=== PATIENT | female | born 1990 | race Two or more races ===

== ENCOUNTER 2017-09-30 10:37 | Emergency (ER) | payer MEDICAID, MEDICARE, OTHER ==
[2017-09-30 11:52] LABS: ABS Basophils 0.1 10^3/ul (0-0.2); ABS Eosinophils 0.1 10^3/ul (0-0.6); ABS Lymphocytes 2.3 10^3/ul (1.0-4.8); ABS Monocytes 0.6 10^3/ul (0-0.8); ABS Nucleated RBC 0 10^3/ul; Eosinophil % 1.3 % (0-6); Hematocrit 38 % (35-47); Hemoglobin 12.4 g/dl (12.0-16.0); Lymphocyte % 28.2 % (25-47); Mean Corpuscular HGB Conc 32 g/dl (31-36); Mean Corpuscular Hemoglobin 23 pg (27-31); Mean Corpuscular Volume 71 fL (80-97); Mean Platelet Volume 8.7 um3 (7.4-10.4); Nucleated Red Blood Cells % 0; Platelet Count 328 10^3/ul (150-450); Red Blood Count 5.44 10^6/ul (4.00-5.40); Red Cell Distribution Width 17 % (10.5-15); White Blood Count 8.1 10^3/ul (3.5-10.8)
[2017-09-30 12:10] LABS: EGFR Non-African American 116.4 (>60)
[2017-09-30] MEDS ORDERED: Ondansetron ODT TAB* 4 MG PO ONE (12:42)
--- NOTE | 2017-09-30 12:45 | ED ---
HPI Febrile Illness - HPI Summary HPI Summary: Pt is a 26 y/o F c/o Flu-like symptoms onset 3 days ago. Assoc. Sx: Abd pain, lightheaded, fever, chills, nausea/vomiting (20x). Denies: cough. - History of Current Complaint Chief Complaint: EDFluSymptoms Hx Obtained From: Patient Onset/Duration: Started Days Ago - 3 days Timing: Constant Current Severity: None Pain Intensity: 0 Pain Scale Used: 0-10 Numeric Associated Signs and Symptoms: Negative - cough, Chills, Nausea, Vomiting, Other : - fever, lightheaded, fever, abd pain - Allergy/Home Medications Allergies/Adverse Reactions: Allergies Allergy/AdvReac Type Severity Reaction Status Date / Time No Known Allergies Allergy Verified 03/18/13 21:20 PMH/Surg Hx/FS Hx/Imm Hx Respiratory History: Reports: Hx Asthma - INHAILER DAILY Sensory History: Denies: Hx Legally Blind Infectious Disease History: No Infectious Disease History: Denies: Traveled Outside the [place] in Last 30 Days - Family History Known Family History: Positive: Cardiac Disease, Hypertension, Diabetes - Social History Occupation: Unemployed Lives: With Family Substance Use Type: Reports: None Review of Systems Positive: Fever, Chills, Other - nausea, vomiting. Negative: Cough Positive: Abdominal Pain Neurological: Other - lightheadedness All Other Systems Reviewed And Are Negative: Yes Physical Exam - Summary Physical Exam Summary: Constitutional: Well-developed, Well-nourished, Alert. (-) Distressed Skin: Warm, Dry HENT: Normocephalic; Atraumatic Eyes: Conjunctiva normal Neck: Musculoskeletal ROM normal neck. (-) JVD, (-) Stridor, (-) Tracheal deviation Cardio: Rhythm regular, rate normal, Heart sounds normal; Intact distal pulses; The pedal pulses are 2+ and symmetric. Radial pulses are 2+ and symmetric. (-) Murmur Pulmonary/Chest wall: Effort normal. (-) Respiratory distress, (-) Wheezes, (-) Rales Abd: Soft, (-), epigastric tenderness, (-) Distension, (-) Guarding, (-) Rebound Musculoskeletal: (-) Edema Lymph: (-) Cervical adenopathy Neuro: Alert, Oriented x3 Psych: Mood and affect Normal Triage Information Reviewed: Yes Vital Signs On Initial Exam: Initial Vitals Temp Pulse Resp BP Pulse Ox 98 F 72 16 135/77 99 09/30/17 10:39 09/30/17 10:39 09/30/17 10:39 09/30/17 10:39 09/30/17 10:39 Vital Signs Reviewed: Yes Diagnostics - Vital Signs Vital Signs Temp Pulse Resp BP Pulse Ox 09/30/17 10:39 98 F 72 16 135/77 99 - Laboratory Lab Results: Lab Results 09/30/17 09/30/17 09/30/17 Range/Units 11:12 11:12 11:12 WBC 8.1 (3.5-10.8) 10^3/ul RBC 5.44 H (4.00-5.40) 10^6/ul Hgb 12.4 (12.0-16.0) g/dl Hct 38 (35-47) % MCV 71 L (80-97) fL MCH 23 L (27-31) pg MCHC 32 (31-36) g/dl RDW 17 H (10.5-15) % Plt Count 328 (150-450) 10^3/ul MPV 8.7 (7.4-10.4) um3 Neut % (Auto) 62.5 (38-83) % Lymph % (Auto) 28.2 (25-47) % [place] % (Auto) 7.3 H (0-7) % Eos % (Auto) 1.3 (0-6) % Baso % (Auto) 0.7 (0-2) % Absolute Neuts (auto) 5.0 (1.5-7.7) 10^3/ul Absolute Lymphs (auto) 2.3 (1.0-4.8) 10^3/ul Absolute Monos (auto) 0.6 (0-0.8) 10^3/ul Absolute Eos (auto) 0.1 (0-0.6) 10^3/ul Absolute Basos (auto) 0.1 (0-0.2) 10^3/ul Absolute Nucleated RBC 0 10^3/ul Nucleated RBC % 0 Microcytosis 1+ Sodium 137 (135-145) mmol/L Potassium 3.6 (3.5-5.0) mmol/L Chloride 104 (101-111) mmol/L Carbon Dioxide 26 (22-32) mmol/L Anion Gap 7 (2-11) mmol/L BUN 12 (6-24) mg/dL Creatinine 0.62 (0.51-0.95) mg/dL Est GFR ( Amer) 140.8 (>60) Est GFR (Non-Af Amer) 116.4 (>60) BUN/Creatinine Ratio 19.4 (8-20) Glucose 100 (70-100) mg/dL Lactic Acid 0.8 (0.5-2.0) mmol/L Calcium 9.4 (8.6-10.3) mg/dL Total Bilirubin 0.40 (0.2-1.0) mg/dL AST 20 (13-39) U/L ALT 15 (7-52) U/L Alkaline Phosphatase 72 (34-104) U/L C-Reactive Protein 21.39 H (<8.01) mg/L Total Protein 8.0 (6.4-8.9) g/dL Albumin 4.0 (3.2-5.2) g/dL Globulin 4.0 (2-4) g/dL Albumin/Globulin Ratio 1.0 (1-3) Lipase 16 (11.0-82.0) U/L Result Diagrams: 09/30/17 11:12 09/30/17 11:12 Lab Statement: Any lab studies that have been ordered have been reviewed, and results considered in the medical decision making process. Re-Evaluation - Re-Evaluation First Eval Re-Evaluation Time: 16:05 Change: Worse Comment: experiencing N/V/D Second Eval Re-Evaluation Time: 16:34 Change: Improved Course/Dx - Diagnoses Provider Diagnoses: UTI (urinary tract infection), Gastroenteritis Discharge - Sign-Out/Discharge Documenting (check all that apply): Patient Departure - Discharge Plan Condition: Stable Disposition: HOME Prescriptions: Ondansetron ODT TAB* [Zofran 4 MG Odt TAB*] 4 mg PO Q8H PRN #12 tab.odt PRN Reason: Nausea/Vomiting Sulfamethox/Trimethoprim DS* [Bactrim DS 800/160 TAB*] 1 tab PO BID #14 tab Patient Education Materials: Urinary Tract Infection in Women (ED), Gastroenteritis (ED) Referrals: No Primary Care Phys,NOPCP [Primary Care Provider] - [facility] [place] [facility]IAN REFERRAL [Outside] Additional Instructions: RETURN TO THE EMERGENCY DEPARTMENT FOR CHANGING OR WORSENING SYMPTOMS
[2017-09-30] MEDS: NS 0.9% 1000 ML* 2,000 ML IV ONE (14:56)
[2017-09-30 15:47] LABS: Urine Appearance Cloudy; Urine Blood 3+ (Negative); Urine Color Yellow; Urine Ketones Trace (Negative); Urine Protein 1+(30 mg/dL) (Negative); Urine Red Blood Cell 3+(>10/hpf) (Absent); Urine Specific Gravity 1.023 (1.010-1.030); Urine Urobilinogen Negative (Negative); Urine White Blood Cell 3+(>20/hpf) (Absent)
[2017-09-30] MEDS ORDERED: Sulfamethox/Trimethoprim DS 800/160* TAB PO ONE (16:02)
[2017-09-30 16:57] VITALS: BP 113/84
== END 2017-09-30 17:15 | disposition home or self-care (01) ==
LOC: ED 10:37
DX: N39.0 Urinary tract infection, site not specified (principal); K52.9 Noninfective gastroenteritis and colitis, unspecified
CPT/HCPCS: 36415; 80053; 81003; 81015; 83605; 83690; 84702; 85025; 86140; 87086; 96360; 96361; 99283; A9270-GY

== ENCOUNTER 2017-10-09 19:33 | Emergency (ER) | payer OTHER ==
[2017-10-09] MEDS ORDERED: NS 0.9% 1000 ML* 1,000 ML IV ONE (19:48)
[2017-10-09] MEDS ORDERED: Charcoal ACTIVATED* 25 GM/120 ML BTL PO ONE (19:50)
[2017-10-09] MEDS ORDERED: Pantoprazole IV* 40 MG IV ONE (19:50)
--- NOTE | 2017-10-09 20:07 | ED ---
Substance Abuse/Use - HPI Summary HPI Summary: This is lolis Ga documenting for attending Darlene West MD. This patient is a 26 year old F presenting to ED with a chief complaint of possible overdose on medications since 0.5 hours ago. The patient reports she took ibuprofen (200mg, took a whole bottle x60 pills about a 0.5 hour ago) and a whole bottle of her anxiety medication (hydroxyzine) but doesnt know if the pills were 25mg or 50mg and she doesnt know how much she took. Her friend called her a cab to take her to the ED. The patient rates the pain 0/10 in severity. Symptoms aggravated by nothing. Symptoms alleviated by nothing. Patient denies N/V. She also currently is on Latuda for depression. She doesnt have a psychiatrist and doesnt remember the name of the person who prescribed her the medications. - History Of Current Complaint Chief Complaint: EDOverdose Stated Complaint: POSSIBLE OVERDOSE Time Seen by Provider: 10/09/17 19:42 Hx Obtained From: Patient Onset/Duration of Drug/ETOH Abuse: Minutes - 0.5 hours ago Ingestion History: Type/Name Of Drug - Ibuprofen and hydroxyzine, Amount Ingested - ibuprofen (200mg, took a whole bottle x60 pills); doesn't know how much of the hydroxyzine, Approximate Time Of Ingestion - 0.5 hours ago Overdose Characteristics: Oral Timing Of Abuse: Binge Use Severity Currently: None Aggravating Factor(s): Nothing Alleviating Factor(s): Nothing Associated Signs And Symptoms: Other: - Patient denies N/V. - Allergies/Home Medications Allergies/Adverse Reactions: Allergies Allergy/AdvReac Type Severity Reaction Status Date / Time No Known Allergies Allergy Verified 03/18/13 21:20 Home Medications: Home Medications Hydroxyzine HCl 25 mg PO Q4HR PRN 10/10/17 [History Confirmed 10/10/17] Latuda 120 mg PO DAILY 10/10/17 [History Confirmed 10/10/17] traZODone TAB* 50 mg PO BEDTIME 10/10/17 [History Confirmed 10/10/17] PMH/Surg Hx/FS Hx/Imm Hx Respiratory History: Reports: Hx Asthma - INHAILER DAILY Sensory History: Denies: Hx Legally Blind Opthamlomology History: Denies: Hx Legally Blind Psychiatric History: Reports: Hx Anxiety, Hx Depression Infectious Disease History: No Infectious Disease History: Denies: Traveled Outside the [place] in Last 30 Days - Family History Known Family History: Positive: Cardiac Disease, Hypertension, Diabetes - Social History Alcohol Use: Rare Substance Use Type: Reports: None Smoking Status (MU): Never Smoked Tobacco Review of Systems Negative: Vomiting, Nausea Psychological: Other - overdose on Ibuprofen and hydroxyzine All Other Systems Reviewed And Are Negative: Yes Physical Exam - Summary Physical Exam Summary: VITAL SIGNS: Reviewed. GENERAL: Patient is a well-developed and nourished FEMALE who is lying comfortable in the stretcher. Patient is not in any acute respiratory distress. HEAD AND FACE: No signs of trauma. No ecchymosis, hematomas or skull depressions. No sinus tenderness. EYES: PERRLA, EOMI x 2, No injected conjunctiva, no nystagmus. EARS: Hearing grossly intact. Ear canals and tympanic membranes are within normal limits. MOUTH: Oropharynx within normal limits. NECK: Supple, trachea is midline, no adenopathy, no JVD, no carotid bruit, no c- spine tenderness, neck with full ROM. CHEST: Symmetric, no tenderness at palpation LUNGS: Clear to auscultation bilaterally. No wheezing or crackles. CVS: Regular rate and rhythm, S1 and S2 present, no murmurs or gallops appreciated. ABDOMEN: Soft, non-tender. No signs of distention. No rebound no guarding, and no masses palpated. Bowel sounds are normal. EXTREMITIES: FROM in all major joints, no edema, no cyanosis or clubbing. NEURO: Alert and oriented x 3. No acute neurological deficits. Speech is normal and follows commands. SKIN: Dry and warm Patient took Ibuprofen and hydroxyzine 0.5 hours ago. Triage Information Reviewed: Yes Vital Signs On Initial Exam: Initial Vitals Temp Pulse Resp BP Pulse Ox 97.1 F 76 20 142/82 97 10/09/17 19:34 10/09/17 19:34 10/09/17 19:34 10/09/17 19:34 10/09/17 19:34 Vital Signs Reviewed: Yes Diagnostics - Vital Signs Vital Signs Temp Pulse Resp BP Pulse Ox 10/09/17 19:34 97.1 F 76 20 142/82 97 - Laboratory Result Diagrams: 10/09/17 20:28 08/02/18 20:28 Lab Statement: Any lab studies that have been ordered have been reviewed, and results considered in the medical decision making process. - EKG 2000 Cardiac Rate: NL - 86 BPM EKG Rhythm: Sinus Rhythm EKG Interpretation: Normal axis. Normal interval. No ischemic changes. Re-Evaluation - Re-Evaluation First Eval Re-Evaluation Time: 01:30 Change: Unchanged - Patient's vital signs remained stable. Patient remains asymptomatic from taking overdose of hydroxyzine and Motrin. no tachycardia, no fever, pupils are normal size. Patient cleared for psych eval by me. Patient transported to FLEX unit Course/Dx - Course Assessment/Plan: This patient is a 26 yo F who is here in the ED for overdose on Ibuprofen and hydroxyzine. This patient will be signed out to Dr. Yuan, awaiting MHE, re-eval, and dispo. - Diagnoses Differential Diagnosis/HQI/PQRI: Positive: Depression Provider Diagnoses: Depression Discharge - Sign-Out/Discharge Documenting (check all that apply): Sign-Out Patient Signing out patient TO: Haseeb Yuan - Discharge Plan Referrals: No Primary Care Phys,NOPCP [Primary Care Provider] -
[2017-10-09 20:39] LABS: Urine Appearance Cloudy; Urine Blood Negative (Negative); Urine Color Yellow; Urine Ketones 1+ (Negative); Urine Protein Negative (Negative); Urine Urobilinogen Negative (Negative)
[2017-10-09 20:40] LABS: ABS Basophils 0.1 10^3/ul (0-0.2); ABS Eosinophils 0.4 10^3/ul (0-0.6); ABS Lymphocytes 3.4 10^3/ul (1.0-4.8); ABS Monocytes 0.6 10^3/ul (0-0.8); ABS Neutrophils 3.2 10^3/ul (1.5-7.7); ABS Nucleated RBC 0 10^3/ul; Eosinophil % 5.2 % (0-6); Hematocrit 34 % (35-47); Hemoglobin 11.1 g/dl (12.0-16.0); Lymphocyte % 43.7 % (25-47); Mean Corpuscular HGB Conc 33 g/dl (31-36); Mean Corpuscular Hemoglobin 23 pg (27-31); Mean Corpuscular Volume 70 fL (80-97); Mean Platelet Volume 8.7 um3 (7.4-10.4); Nucleated Red Blood Cells % 0.1; Platelet Count 295 10^3/ul (150-450); Red Blood Count 4.83 10^6/ul (4.00-5.40); Red Cell Distribution Width 17 % (10.5-15); White Blood Count 7.7 10^3/ul (3.5-10.8)
[2017-10-09 20:57] LABS: EGFR Non-African American 125.7 (>60)
[2017-10-09] MEDS ORDERED: Potassium Chlor TAB* 20 MEQ TAB.ER PO ONE (21:47)
--- NOTE | 2017-10-10 07:11 | ED ---
Progress - Progress Note Progress Note: This is scribe Robbin Julio documenting for attending Haseeb Yuan MD. Re-Evaluation - Re-Evaluation First Eval Re-Evaluation Time: 01:30 Change: Unchanged - Patient's vital signs remained stable. Patient remains asymptomatic from taking overdose of hydroxyzine and Motrin. no tachycardia, no fever, pupils are normal size. Patient cleared for psych eval by me. Patient transported to FLEX unit Course/Dx - Diagnoses Provider Diagnoses: Depression - Provider Notifications Discussed Care Of Patient With: Daniel Richards Time Discussed With Above Provider: 10:42 Instructed by Provider To: Other - Dr. Richards was consulted on condition of patient at 10:42. He recommends patient for discharge to home. Patient states she will follow up with Dr. Perez within a week. Dr. Yuan is agreeable with the plan. Discharge - Sign-Out/Discharge Documenting (check all that apply): Patient Departure - Discharge Plan Condition: Stable Disposition: HOME Referrals: No Primary Care Phys,NOPCP [Primary Care Provider] - - Billing Disposition and Condition Condition: STABLE Disposition: Home
--- NOTE | 2017-10-10 07:32 | PN ---
ED Flex Patient Progress Note Date of Service: 10/09/17 Subjective: This is a 26 year-old F who is pending admission to [facility] / transfer to another psychiatric facility / discharge to home / or being observed secondary to SI with OD. Pt. examined in F3 at 0730. She is resting comfortably. She offers no complaints. Objective: Vitals: Most recent vital signs documented below. General NAD, Alert and oriented x3. Laboratory: Current laboratory results documented below. Assessment: Pending MHE Plan: Pending psychiatric or medical consultation to observe / transfer / admit / discharge will follow up daily . Vital Signs Temp Pulse Resp BP Pulse Ox 97.4 F 62 16 119/73 98 10/10/17 07:28 10/10/17 07:28 10/10/17 07:28 10/10/17 07:28 10/10/17 07:28 Lab Results - Entire Visit 10/09/17 10/09/17 10/09/17 20:28 20:28 20:28 WBC 7.7 RBC 4.83 Hgb 11.1 L Hct 34 L MCV 70 L MCH 23 L MCHC 33 RDW 17 H Plt Count 295 MPV 8.7 Neut % (Auto) 41.9 Lymph % (Auto) 43.7 [place] % (Auto) 8.3 H Eos % (Auto) 5.2 Baso % (Auto) 0.9 Absolute Neuts (auto) 3.2 Absolute Lymphs (auto) 3.4 Absolute Monos (auto) 0.6 Absolute Eos (auto) 0.4 Absolute Basos (auto) 0.1 Absolute Nucleated RBC 0 Nucleated RBC % 0.1 Sodium 138 Potassium 3.4 L Chloride 104 Carbon Dioxide 26 Anion Gap 8 BUN 8 Creatinine 0.58 Est GFR ( Amer) 152.1 Est GFR (Non-Af Amer) 125.7 BUN/Creatinine Ratio 13.8 Glucose 86 Calcium 9.3 Total Bilirubin 0.40 AST 21 ALT 18 Alkaline Phosphatase 67 Total Protein 7.2 Albumin 3.7 Globulin 3.5 Albumin/Globulin Ratio 1.1 TSH 1.82 Beta HCG, Quant < 0.60 Urine Color Urine Appearance Urine pH Ur Specific [place] Urine Protein Urine Ketones Urine Blood Urine Nitrate Urine Bilirubin Urine Urobilinogen Ur Leukocyte Esterase Urine Glucose Salicylates < 2.50 Urine Opiates Screen None detected Acetaminophen < 15 Ur Barbiturates Screen None detected Ur Phencyclidine Scrn None detected Ur Amphetamines Screen None detected U Benzodiazepines Scrn None detected Urine Cocaine Screen Presumptive positive A U Cannabinoids Screen Presumptive positive A Serum Alcohol < 10 10/09/17 20:27 WBC RBC Hgb Hct MCV MCH MCHC RDW Plt Count MPV Neut % (Auto) Lymph % (Auto) [place] % (Auto) Eos % (Auto) Baso % (Auto) Absolute Neuts (auto) Absolute Lymphs (auto) Absolute Monos (auto) Absolute Eos (auto) Absolute Basos (auto) Absolute Nucleated RBC Nucleated RBC % Sodium Potassium Chloride Carbon Dioxide Anion Gap BUN Creatinine Est GFR ( Amer) Est GFR (Non-Af Amer) BUN/Creatinine Ratio Glucose Calcium Total Bilirubin AST ALT Alkaline Phosphatase Total Protein Albumin Globulin Albumin/Globulin Ratio TSH Beta HCG, Quant Urine Color Yellow Urine Appearance Cloudy Urine pH 5.0 Ur Specific [place] 1.010 Urine Protein Negative Urine Ketones 1+ A Urine Blood Negative Urine Nitrate Negative Urine Bilirubin Negative Urine Urobilinogen Negative Ur Leukocyte Esterase Negative Urine Glucose Negative Salicylates Urine Opiates Screen Acetaminophen Ur Barbiturates Screen Ur Phencyclidine Scrn Ur Amphetamines Screen U Benzodiazepines Scrn Urine Cocaine Screen U Cannabinoids Screen Serum Alcohol
[2017-10-10 11:04] VITALS: BP 125/83
== END 2017-10-10 11:00 | disposition home or self-care (01) ==
LOC: ED 19:33
DX: F32.9 Major depressive disorder, single episode, unspecified (principal); T43.592A Poisoning by other antipsychotics and neuroleptics, intentional self-harm, initial encounter; T39.312A Poisoning by propionic acid derivatives, intentional self-harm, initial encounter; Y92.9 Unspecified place or not applicable; F41.9 Anxiety disorder, unspecified
CPT/HCPCS: 36415; 80053; 80307; 80320; 80329; 81003; 84443; 84702; 85025; 93005; 96361; 96374; 99285; A9270-GY; G0480

== ENCOUNTER → 2017-11-06 10:29 | Emergency (ER) | payer OTHER ==
--- NOTE | 2017-11-06 10:59 | ED ---
Abdominal Pain/Female - HPI Summary HPI Summary: This patient is a 26 year old F presenting to [facility] accompanied by her boyfriend with a chief complaint of 6/10 RLQ abd pain since this AM. Pt endorses being 6 or 7 weeks , and had an US that did not see an embryo ; she was told to come to the ED if she experiences pain to R/O ectopic . Pt denies discharge, LMP 09/25/17. SHx appendectomy 2 years ago. - History of Current Complaint Chief Complaint: EDAbdPain Stated Complaint: ABD PAIN/7 WKS PREG Time Seen by Provider: 11/06/17 10:35 Hx Obtained From: Patient Onset/Duration: Sudden Onset, Lasting Hours, Still Present Timing: Constant Severity Initially: Moderate Severity Currently: Moderate Pain Intensity: 6 Pain Scale Used: 0-10 Numeric Location: Discrete At: RLQ Radiates: No Aggravating Factor(s): Nothing Alleviating Factor(s): Nothing Associated Signs and Symptoms: Negative: Fever, Vaginal Bleeding, Vaginal Discharge Allergies/Adverse Reactions: Allergies Allergy/AdvReac Type Severity Reaction Status Date / Time No Known Allergies Allergy Verified 11/06/17 10:31 Home Medications: Home Medications NK [No Home Medications Reported] 11/06/17 [History Confirmed 11/06/17] PMH/Surg Hx/FS Hx/Imm Hx Cardiovascular History: Denies: Hx Myocardial Infarction Respiratory History: Reports: Hx Asthma - INHAILER DAILY GI History: Denies: Hx Ileostomy History: Denies: Hx Dialysis Musculoskeletal History: Denies: Hx Osteoporosis Sensory History: Denies: Hx Legally Blind, Hx Deafness Opthamlomology History: Denies: Hx Legally Blind EENT History: Denies: Hx Deafness Neurological History: Denies: Hx CVA Psychiatric History: Reports: Hx Anxiety, Hx Depression Denies: Hx Eating Disorder, Hx of Violent Episodes Against Others Infectious Disease History: No Infectious Disease History: Denies: Traveled Outside the [place] in Last 30 Days - Family History Known Family History: Positive: Cardiac Disease, Hypertension, Diabetes - Social History Lives: Dormitory/Roommates Alcohol Use: Rare Substance Use Type: Reports: None Smoking Status (MU): Never Smoked Tobacco Review of Systems Negative: Fever Positive: Abdominal Pain Positive: see HPI. Negative: discharge All Other Systems Reviewed And Are Negative: Yes Physical Exam - Summary Physical Exam Summary: Appearance: Well appearing, no pain distress Skin: warm, dry, reflects adequate perfusion Head/face: normal Eyes: EOMI, PAMELA ENT: normal Neck: supple, non-tender Respiratory: CTA, breath sounds present Cardiovascular: RRR, pulses symmetrical Abdomen: mild tenderness to RLQ, soft Bowel: present Musculoskeletal: normal, strength/ROM intact Neuro: normal, sensory motor intact, A&Ox3 Triage Information Reviewed: Yes Vital Signs On Initial Exam: Initial Vitals Temp Pulse Resp BP Pulse Ox 97.8 F 86 16 125/78 97 11/06/17 10:31 11/06/17 10:31 11/06/17 10:31 11/06/17 10:31 11/06/17 10:31 Vital Signs Reviewed: Yes Diagnostics - Vital Signs Vital Signs Temp Pulse Resp BP Pulse Ox 11/06/17 10:46 82 125/81 98 11/06/17 10:31 97.8 F 86 16 125/78 97 - Laboratory Result Diagrams: 11/06/17 10:52 11/06/17 10:52 Lab Statement: Any lab studies that have been ordered have been reviewed, and results considered in the medical decision making process. - Ultrasound No standard instances Ultrasound Interpretation: No Acute Changes Ultrasound Interpretation Completed By: Radiologist - NO EVIDENCE OF INTRAUTERINE GESTATION AND THEREFORE ECTOPIC IS NOT EXCLUDED. Dr. Cameron has reviewed this report. Abdominal Pain Fem Course/Dx - Course Course Of Treatment: A 26-year-old F presents to the ED with a CC of RLQ abd pain since this AM. (+) 6-7 weeks . (-) vaginal discharge/bleeding. A previous US revealed no embryo, here to R/O ectopic . LMP 09/25/17. A TVUS revealed NO EVIDENCE OF INTRAUTERINE GESTATION AND THEREFORE ECTOPIC IS NOT EXCLUDED. - Diagnoses Differential Diagnosis: Positive: Ectopic , Urinary Tract Infection Provider Diagnoses: Abdominal pain, - Provider Notifications Discussed Care Of Patient With: Erika Lambert Time Discussed With Above Provider: 13:59 Instructed by Provider To: Other - See her on Friday morning, call and make an appointment. Discharge - Sign-Out/Discharge Documenting (check all that apply): Patient Departure - discharge - Discharge Plan Condition: Stable Disposition: HOME Patient Education Materials: (ED), Abdominal Pain in (ED) Referrals: Erika Lambert MD [Medical Doctor] - 1 Day Additional Instructions: Return to the emergency department for any new or worsening symptoms. Call and make an appointment with Dr. Petra CONTRERAS for an appointment tomorrow. - Billing Disposition and Condition Condition: STABLE Disposition: Home - Attestation Statements Document Initiated by Zitaibe: Yes Documenting Scribe: Derrek Solomon Provider For Whom Faustoe is Documenting (Include Credential): Dr. Shivam Cameron MD Scribe Attestation: Derrek Bates scribed for Dr. Shivam Cameron MD on 11/06/17 at 1429. Scribe Documentation Reviewed: Yes Provider Attestation: The documentation as recorded by the Derrek danielle accurately reflects the service I personally performed and the decisions made by me, Dr. Shivam Cameron MD
[2017-11-06 11:14] LABS: ABS Basophils 0 10^3/ul (0-0.2); ABS Eosinophils 0.1 10^3/ul (0-0.6); ABS Lymphocytes 2.6 10^3/ul (1.0-4.8); ABS Monocytes 0.8 10^3/ul (0-0.8); ABS Neutrophils 5.3 10^3/ul (1.5-7.7); ABS Nucleated RBC 0 10^3/ul; Eosinophil % 1.3 % (0-6); Hematocrit 36 % (35-47); Hemoglobin 11.7 g/dl (12.0-16.0); Lymphocyte % 29.1 % (25-47); Mean Corpuscular HGB Conc 32 g/dl (31-36); Mean Corpuscular Hemoglobin 23 pg (27-31); Mean Corpuscular Volume 70 fL (80-97); Mean Platelet Volume 8.6 um3 (7.4-10.4); Nucleated Red Blood Cells % 0.1; Platelet Count 308 10^3/ul (150-450); Red Blood Count 5.19 10^6/ul (4.00-5.40); Red Cell Distribution Width 17 % (10.5-15); White Blood Count 8.9 10^3/ul (3.5-10.8)
--- OUTSIDE RECORDS SUMMARY | 2017-11-06 11:23 | XMS REPORT ---
:1990 External Reference #:[id number] Author Organization [employer] Address [address] [place] [address] [place] [address] Phone [phone] Care Team Providers Name Role Phone Reid Perez III, MD Primary Care Physician Unavailable Payers Type Date Identification Numbers Payment Provider Subscriber Commercial Effective: Policy Number: Harvey Wesley 2014 [id number] PayID: [id number] [address] [place] [phone] Problems Description No Information Social History Type Date Description Comments Smoking Patient is a former smoker Not consistently, unsure of when she quit. Allergies, Adverse Reactions, Alerts Date Description Reaction Status Severity Comments 10/14/2017 NKDA active Medications Medication Date Status Form Strength Qnty SIG Indications Ordering Provider Latuda 0000/ Active Tablets 120mg In Morning Unknown 00 Trazodone HCL 00 Active Tablets 50mg 1 tablet Unknown 00 at bedtime as needed Hydroxyzine HCL Active Tablets 25mg 1 tablets Unknown 00 by mouth every 6-8 hours as needed for anxiety Vital Signs Date Vital Result Comment 10/14/2017 Height 65 inches 5'5" Weight 199.00 lb Heart Rate 79 /min BP Systolic Sitting 110 mmHg BP Diastolic Sitting 72 mmHg O2 % BldC Oximetry 98 % BMI (Body Mass Index) 33.1 kg/m2 Results Description No Information Procedures Description No Information Plan of Care 10/14/2017 - Reid Perez M.D.F34.1 Dysthymic [id number] Anemia, [id number] Encounter for screening for lipoid disordersNew Labs:Lipid Profile (Trig/Chol/HDL)Z13.1 Encounter for screening for diabetes mellitusNew Labs:HejlifcO94.3 Encntr screen for infections w sexl mode of transmissNew Labs: HIV 1&2 AB Self ReferredSyphillis Igg W/Reflex RPRGC/Chlamydia Amplified RnaHerpes-6, Human Igg & IgmPregnancy (HCG) Urine
[2017-11-06 11:24] LABS: EGFR Non-African American 139.4 (>60)
[2017-11-06 11:56] LABS: Urine Appearance Cloudy; Urine Blood Negative (Negative); Urine Color Amber; Urine Ketones Negative (Negative); Urine Protein Negative (Negative); Urine Specific Gravity 1.023 (1.010-1.030); Urine Urobilinogen Negative (Negative)
--- NOTE | 2017-11-06 12:46 | RAD ---
INDICATION: Evaluate for ectopic COMPARISON: None TECHNIQUE: Transvaginal scans were performed for evaluation. FINDINGS: There is no evidence of an intrauterine gestation and therefore in the setting of a positive test, ectopic cannot be excluded. Suggest comparison with serial beta-hCGs and follow-up ultrasonography. Suggest obstetric referral if clinically indicated. There is no evidence of an adnexal mass or free fluid. The right ovary measures 2.7 x 1.5 x 1.8 cm the left 3.3 x 2.6 x 2.7 cm. There is Doppler flow bilaterally. Uterine measurements of 8.5 x 3.7 x 5.0 cm are obtained. Endometrial stripe measures 1.2 cm IMPRESSION: NO EVIDENCE OF INTRAUTERINE GESTATION AND THEREFORE ECTOPIC IS NOT EXCLUDED (SEE ABOVE).
[2017-11-06 16:34] VITALS: BP 124/79
== END | disposition home or self-care (01) ==
LOC: ED 10:29
DX: O26.891 Other specified pregnancy related conditions, first trimester (principal); R10.31 Right lower quadrant pain; Z3A.01 Less than 8 weeks gestation of pregnancy; J45.909 Unspecified asthma, uncomplicated
CPT/HCPCS: 36415; 76830; 80053; 81003; 83690; 84702; 85025; 86850; 86900; 86901; 99282

== ENCOUNTER 2018-02-26 22:54 | Emergency (ER) | payer SELFPAY ==
[2018-02-27] MEDS ORDERED: Benzonatate CAP* 100 MG PO ONE (00:13)
[2018-02-27] MEDS ORDERED: Albuterol/Ipratropium NEB.SOL* Albuterol 2.5 MG/Ipratropium 0.5 MG 3 ML INH ONE (00:13)
[2018-02-27] MEDS ORDERED: Acetaminophen TAB* 325 MG PO ONE (00:14)
[2018-02-27] MEDS ORDERED: Lidocaine 2% VISCOUS* 15 ML UDC PO ONE (00:14)
[2018-02-27] MEDS ORDERED: Azithromycin TAB* 250 MG PO ONE (00:54)
--- NOTE | 2018-02-27 00:55 | ED ---
Respiratory - HPI Summary HPI Summary: Patient complains of productive cough, yellow nasal congestion, myalgia, throat pain, chills, SOB, MARTINES starting 5 days ago. Denies fever, ear pain, neck stiffness, CP, N/V/D, abdominal pain, change in urine, change in BM. Medical history is asthma. Out of her inhaler. - History of Current Complaint Chief Complaint: EDFluSymptoms Stated Complaint: COUGH AND CONGESTION Time Seen by Provider: 02/27/18 00:05 Hx Obtained From: Patient Onset/Duration: Gradual Onset Initial Severity: Mild Current Severity: Moderate Pain Intensity: 8 Character: Cough (Productive) Sputum Amount: Moderate Sputum Color: Yellow Aggravating Factor(s): Nothing Alleviating Factor(s): Nothing Associated Signs and Symptoms: SOB, Chills, Nasal Congestion - Allergy/Home Medications Allergies/Adverse Reactions: Allergies Allergy/AdvReac Type Severity Reaction Status Date / Time No Known Allergies Allergy Verified 02/26/18 23:06 PMH/Surg Hx/FS Hx/Imm Hx Endocrine/Hematology History: Denies: Hx Anticoagulant Therapy Cardiovascular History: Denies: Hx Cardiac Arrest, Hx Myocardial Infarction Respiratory History: Reports: Hx Asthma - INHAILER DAILY GI History: Denies: Hx Ileostomy History: Denies: Hx Dialysis Musculoskeletal History: Denies: Hx Osteoporosis Sensory History: Denies: Hx Legally Blind, Hx Deafness Opthamlomology History: Denies: Hx Legally Blind EENT History: Denies: Hx Deafness Neurological History: Denies: Hx CVA Psychiatric History: Reports: Hx Anxiety, Hx Depression Denies: Hx Eating Disorder, Hx of Violent Episodes Against Others - Immunization History Date of Influenza Vaccine: no Infectious Disease History: No Infectious Disease History: Denies: Traveled Outside the [place] in Last 30 Days - Family History Known Family History: Positive: Cardiac Disease, Hypertension, Diabetes - Social History Alcohol Use: Rare Substance Use Type: Reports: None Smoking Status (MU): Never Smoked Tobacco Review of Systems Positive: Chills Eyes: Negative Positive: Sore Throat, Nasal Discharge Cardiovascular: Negative Positive: Shortness Of Breath, Cough Gastrointestinal: Negative Genitourinary: Negative Positive: Myalgia Skin: Negative Positive: Headache Psychological: Normal All Other Systems Reviewed And Are Negative: Yes Physical Exam Triage Information Reviewed: Yes Vital Signs On Initial Exam: Initial Vitals Temp Pulse Resp BP Pulse Ox 99.0 F 105 20 134/89 95 02/26/18 23:00 02/26/18 23:00 02/26/18 23:00 02/26/18 23:00 02/26/18 23:00 Vital Signs Reviewed: Yes Appearance: Positive: Well-Appearing Skin: Positive: Warm Head/Face: Positive: Normal Head/Face Inspection ENT: Positive: Pharyngeal erythema, TMs normal, Uvula midline. Negative: Tonsillar swelling, Tonsillar exudate, Trismus, Muffled voice, Hoarse voice, Sinus tenderness Neck: Positive: Supple Respiratory/Lung Sounds: Positive: Clear to Auscultation Cardiovascular: Positive: Normal Abdomen Description: Positive: Nontender Musculoskeletal: Positive: Normal Neurological: Positive: Normal Psychiatric: Positive: Normal AVPU Assessment: Alert - [place] Coma Scale Best Eye Response: 4 - Spontaneous Best Motor Response: 6 - Obeys Commands Best Verbal Response: 5 - Oriented Coma Scale Total: 15 Diagnostics - Vital Signs Vital Signs Temp Pulse Resp BP Pulse Ox 02/26/18 23:56 91 96 02/26/18 23:55 96 137/88 96 02/26/18 23:00 99.0 F 105 20 134/89 95 - Laboratory Lab Results: Lab Results 02/27/18 02/27/18 02/27/18 Range/Units 00:08 00:23 00:28 Monoscreen Negative (Negative) Influenza A (Rapid) Negative (Negative) Influenza B (Rapid) Negative (Negative) Group A Strep Rapid Negative (Negative) Lab Statement: Any lab studies that have been ordered have been reviewed, and results considered in the medical decision making process. Disposition - Course Course Of Treatment: Patient complains of productive cough, yellow nasal congestion, myalgia, throat pain, chills, SOB, MARTINES starting 5 days ago. Denies fever, ear pain, neck stiffness, CP, N/V/D, abdominal pain, change in urine, change in BM. Medical history is asthma. Out of her inhaler. Physical exam unremarkable. Vital signs within normal limits and stable. Flu negative. Strep negative. Mild negative. Chest x-ray unremarkable. Rx for azithromycin , viscous lidocaine, Tessalon Perles. - Diagnoses Provider Diagnoses: Respiratory infection, Pharyngitis Discharge - Sign-Out/Discharge Documenting (check all that apply): Patient Departure - Discharge Plan Condition: Stable Disposition: HOME Prescriptions: Azithromycin 250 mg PO DAILY 4 Days #4 tablet Benzonatate CAP* [Tessalon 100 MG CAP*] 200 mg PO TID 6 Days #40 cap Lidocaine 2% VISCOUS* [Xylocaine 2% Viscous*] 15 ml SWISH SPIT Q6H PRN #1 btl PRN Reason: Pain Patient Education Materials: Pharyngitis (ED), Acute Cough (ED) Referrals: Reid Perez MD [Primary Care Provider] - Additional Instructions: Take antibiotics as directed. Follow-up with primary care. Return to the ED for any new or worsening symptoms - Billing Disposition and Condition Condition: STABLE Disposition: Home
[2018-02-27] MEDS ORDERED: Albuterol HFA INHALER* 8 gm MDI INH PRN (00:58)
[2018-02-27 01:20] VITALS: BP 118/80
== END 2018-02-27 01:25 | disposition home or self-care (01) ==
LOC: ED 22:54
DX: J06.9 Acute upper respiratory infection, unspecified (principal); J45.909 Unspecified asthma, uncomplicated
CPT/HCPCS: 36415; 71046; 86308; 87651; 99283; A9270-GY

== ENCOUNTER 2018-03-08 19:19 | Emergency (ER) | payer MEDICAID ==
[2018-03-08 20:36] LABS: ALT 20 U/L (7-52); AST 18 U/L (13-39); Albumin 3.8 g/dL (3.2-5.2); Alkaline Phosphatase 68 U/L (34-104); Anion Gap 5 mmol/L (2-11); Blood Urea Nitrogen 8 mg/dL (6-24); C Reactive Protein 43.42 mg/L (<8.01); CO2 Carbon Dioxide 25 mmol/L (22-32); Calcium 9.1 mg/dL (8.6-10.3); Chloride 106 mmol/L (101-111); EGFR Non-African American 127.2 (>60); Globulin 3.7 g/dL (2-4); Glucose 94 mg/dL (70-100); Potassium 3.9 mmol/L (3.5-5.0); Sodium 136 mmol/L (135-145); Total Protein 7.5 g/dL (6.4-8.9)
[2018-03-08 20:41] LABS: HCG Pregnancy < 0.60 mIU/mL
[2018-03-08 20:44] LABS: ABS Basophils 0.1 10^3/ul (0-0.2); ABS Eosinophils 0.8 10^3/ul (0-0.6); ABS Lymphocytes 2.1 10^3/ul (1.0-4.8); ABS Monocytes 0.9 10^3/ul (0-0.8); ABS Neutrophils 3.4 10^3/ul (1.5-7.7); ABS Nucleated RBC 0 10^3/ul; Eosinophil % 11.1 %; Hematocrit 40 % (35-47); Hemoglobin 12.9 g/dl (12.0-16.0); Lymphocyte % 28.7 %; Mean Corpuscular HGB Conc 32 g/dl (31-36); Mean Corpuscular Hemoglobin 23 pg (27-31); Mean Corpuscular Volume 70 fL (80-97); Mean Platelet Volume 8.8 fL (7.4-10.4); Nucleated Red Blood Cells % 0.2; Platelet Count 297 10^3/ul (150-450); Red Blood Count 5.73 10^6/ul (4.00-5.40); Red Cell Distribution Width 17 % (10.5-15); White Blood Count 7.2 10^3/ul (3.5-10.8)
--- NOTE | 2018-03-08 20:47 | ED ---
Abdominal Pain/Female - HPI Summary HPI Summary: A 27 y/o female presents to [facility] with a chief complaint of abdominal pain since 02/28/18. Per patient, her abdominal pain started one day after having anal sex. She rates her pain as 9/10. She states that her stool has been normal , but does report some diarrhea. She also c/o fevers, chills and a lack of appetite. Her temperature in the ED is 98.1. She notes that her right side of her abd hurts worse than her left side. She denies dysuria, pain in the rectal area, SI, vaginal bleeding or vaginal discharge. She denies a Hx of STDs and states she is active with one partner. She has a Hx of asthma and a SHx of cholecystectomy and appendectomy. - History of Current Complaint Chief Complaint: EDAbdPain Stated Complaint: ABD PAIN Time Seen by Provider: 03/08/18 20:35 Hx Obtained From: Patient Onset/Duration: Sudden Onset, Lasting Days, Still Present Severity Initially: Severe Severity Currently: Severe Pain Intensity: 9 Pain Scale Used: 0-10 Numeric Location: Diffuse, Discrete At: RLQ - worse pain here Radiates: No Character: Not Applicable Aggravating Factor(s): Nothing Alleviating Factor(s): Nothing Associated Signs and Symptoms: Positive: Negative - dysuria, SI, Decreased Appetite, Diarrhea. Negative: Fever, Vaginal Bleeding, Vaginal Discharge Allergies/Adverse Reactions: Allergies Allergy/AdvReac Type Severity Reaction Status Date / Time No Known Allergies Allergy Verified 03/08/18 19:25 Home Medications: Home Medications Albuterol HFA INHALER* [Ventolin HFA Inhaler*] 2 puff INH Q4H PRN 03/08/18 [ History Confirmed 03/08/18] PMH/Surg Hx/FS Hx/Imm Hx Endocrine/Hematology History: Denies: Hx Anticoagulant Therapy Cardiovascular History: Denies: Hx Cardiac Arrest, Hx Myocardial Infarction Respiratory History: Reports: Hx Asthma - INHAILER DAILY GI History: Denies: Hx Ileostomy History: Denies: Hx Dialysis Musculoskeletal History: Denies: Hx Osteoporosis Sensory History: Denies: Hx Legally Blind, Hx Deafness Opthamlomology History: Denies: Hx Legally Blind Neurological History: Denies: Hx CVA Psychiatric History: Reports: Hx Anxiety, Hx Depression Denies: Hx Eating Disorder, Hx of Violent Episodes Against Others - Surgical History Surgery Procedure, Year, and Place: appendectomy, cholecystectomy - Immunization History Date of Influenza Vaccine: no Infectious Disease History: No Infectious Disease History: Denies: Traveled Outside the [place] in Last 30 Days - Family History Known Family History: Positive: Cardiac Disease, Hypertension, Diabetes - Social History Alcohol Use: Rare Substance Use Type: Reports: None Smoking Status (MU): Never Smoked Tobacco Review of Systems Positive: Fever, Chills Positive: Abdominal Pain, Diarrhea, Other - positive: lack of appetite Genitourinary: Negative - vaginal bleeding, vaginal discharge Negative: dysuria, pain - rectal area Psychological: Other - negative: SI All Other Systems Reviewed And Are Negative: Yes Physical Exam - Summary Physical Exam Summary: GENERAL: Patient is a well-developed and nourished F who is lying comfortable in the stretcher. Patient is not in any acute respiratory distress. HEAD AND FACE: Normocephalic EYES: PERRLA, EOMI x 2. EARS: Hearing grossly intact. MOUTH: Oropharynx within normal limits. NECK: Supple, trachea is midline, no adenopathy, no JVD, no carotid bruit. CHEST: Symmetric, no tenderness at palpation LUNGS: Clear to auscultation bilaterally. No wheezing or crackles. CVS: Regular rate and rhythm, S1 and S2 present, no murmurs or gallops appreciated. ABDOMEN: Tender diffusely, worse in RLQ. Bowel sounds are normal. No abdominal abnormal pulsations. EXTREMITIES: Full ROM in all major joints, no edema, no cyanosis or clubbing. NEURO: Alert and oriented x 3. No acute neurological deficits. Speech is normal and follows commands. SKIN: Dry and warm Triage Information Reviewed: Yes Vital Signs On Initial Exam: Initial Vitals Temp Pulse Resp BP Pulse Ox 98.1 F 88 18 135/83 98 03/08/18 19:21 03/08/18 19:21 03/08/18 19:21 03/08/18 19:21 03/08/18 19:21 Vital Signs Reviewed: Yes Diagnostics - Vital Signs Vital Signs Temp Pulse Resp BP Pulse Ox 03/08/18 19:21 98.1 F 88 18 135/83 98 - Laboratory Lab Results: Lab Results 03/08/18 03/08/18 Range/Units 20:07 20:07 Sodium 136 (135-145) mmol/L Potassium 3.9 (3.5-5.0) mmol/L Chloride 106 (101-111) mmol/L Carbon Dioxide 25 (22-32) mmol/L Anion Gap 5 (2-11) mmol/L BUN 8 (6-24) mg/dL Creatinine 0.57 (0.51-0.95) mg/dL Est GFR ( Amer) 153.9 (>60) Est GFR (Non-Af Amer) 127.2 (>60) BUN/Creatinine Ratio 14.0 (8-20) Glucose 94 (70-100) mg/dL Lactic Acid 1.0 (0.5-2.0) mmol/L Calcium 9.1 (8.6-10.3) mg/dL Total Bilirubin 0.30 (0.2-1.0) mg/dL AST 18 (13-39) U/L ALT 20 (7-52) U/L Alkaline Phosphatase 68 (34-104) U/L C-Reactive Protein 43.42 H (<8.01) mg/L Total Protein 7.5 (6.4-8.9) g/dL Albumin 3.8 (3.2-5.2) g/dL Globulin 3.7 (2-4) g/dL Albumin/Globulin Ratio 1.0 (1-3) Lipase 18 (11.0-82.0) U/L Beta HCG, Quant < 0.60 mIU/mL Result Diagrams: 03/08/18 20:07 03/08/18 20:07 Lab Statement: Any lab studies that have been ordered have been reviewed, and results considered in the medical decision making process. Abdominal Pain Fem Course/Dx - Course Course Of Treatment: A 27 y/o female presents to [facility] with a chief complaint of abdominal pain since 02/28/18. Per patient, her abdominal pain started one day after having anal sex. She rates her pain as 9/10. Workup is remarkable. The physical exam revealed that the patient is tender diffusely but worse in her RLQ. Lab results obtained and are WNL. In the ED course the patient was given toradol, zofran and sodium chloride IV. Dx: abdominal pain. The patient will be signed out to Dr. Xavier at shift pending CT abdomen/pelvis, urinalysis and lactic acid. - Diagnoses Provider Diagnoses: Abdominal pain Discharge - Sign-Out/Discharge Documenting (check all that apply): Sign-Out Patient Signing out patient TO: Tony Xavier - pending CT abdomen/pelvis, Lactic acid and urinalysis. - Discharge Plan Condition: Stable Referrals: Reid Preez MD [Primary Care Provider] - - Billing Disposition and Condition Condition: STABLE - Attestation Statements Document Initiated by Scribe: Yes Documenting Scribe: Luke Comer Provider For Whom Scribe is Documenting (Include Credential): Talia Rain MD Scribe Attestation: Luke Bates, scribed for Talia Rain MD on 03/08/18 at 2135. Scribe Documentation Reviewed: Yes Provider Attestation: The documentation as recorded by the Luke danielle accurately reflects the service I personally performed and the decisions made by , Aramis Rain MD Status of Scribe Document: Viewed
[2018-03-08] MEDS: Ondansetron INJ* 2 MG/ML VIAL IV ONE (21:03)
[2018-03-08] MEDS: Ketorolac INJ* 30 MG/ML 1 ML VIAL IV PUSH ONE (21:03)
[2018-03-08] MEDS: NS 0.9% 1000 ML* 1,000 ML IV ONE (21:03)
[2018-03-08 21:42] LABS: Urine Appearance Cloudy; Urine Bacteria Absent (Absent); Urine Bilirubin Negative (Negative); Urine Blood Negative (Negative); Urine Color Yellow; Urine Glucose Negative (Negative); Urine Ketones Negative (Negative); Urine Nitrite Negative (Negative); Urine Protein Negative (Negative); Urine Red Blood Cell Trace(0-2/hpf) (Absent); Urine Specific Gravity 1.015 (1.010-1.030); Urine Urobilinogen Negative (Negative); Urine White Blood Cell 1+(6-10/hpf) (Absent)
--- NOTE | 2018-03-08 22:07 | ED ---
Progress - Progress Note Progress Note: Receiving sign out from Dr. Rain, pending CT A/P and UA. CT A/P: 1. Status post cholecystectomy. 2. Question of complex or inhomogeneous left ovarian cyst measuring 2.[address] cm[address] abdomen/pelvis. ED physician reviewed radiology report. Pelvis US: 1. Complex left ovarian nodule measuring 2.8 x 2.2 x 3.0 cm. 2. Otherwise negative pelvic sonogram. ED physician reviewed radiology report. Pt will be discharged home with a final dx of ovarian cysts. Course/Dx - Course Course Of Treatment: Nurse's notes reviewed. I assumed care of this patient from preceding ER physician. CT scan was pending and revealed a 2.4 cm left ovarian cyst. Ultrasound of the pelvis was performed to confirm that there were blood flow to the ovaries. No torsion was identified. Patient had significant pain relief and was able to be discharged home. She will follow-up with her primary care physician and OPERATIONS MANAGER/COORDINATOR. - Diagnoses Provider Diagnoses: Ovarian cyst Discharge - Sign-Out/Discharge Documenting (check all that apply): Patient Departure - Discharge, Receiving Sign-Out Receiving patient FROM: Talia Rain - Discharge Plan Condition: Improved Disposition: HOME Prescriptions: Naproxen [Naproxen 500 mg tab] 500 mg PO BID PRN #12 tablet.dr PRN Reason: Pain traMADol TAB* [Ultram*] 50 mg PO Q8H PRN #10 tab MDD 3 PRN Reason: more severe pain Patient Education Materials: Ovarian Cyst (ED) Referrals: Reid Perez MD [Primary Care Provider] - Additional Instructions: Call your family doctor to schedule prompt follow-up. You may need to follow- up with OPERATIONS MANAGER/COORDINATOR if you have ongoing discomfort. Return with severe, uncontrolled pain, vomiting, high fevers, worse or other concerns. - Billing Disposition and Condition Condition: IMPROVED Disposition: Home - Attestation Statements Document Initiated by Scribe: Yes Documenting Scribe: Yumiko Galdamez Provider For Whom Emi is Documenting (Include Credential): Tony Xavier MD Scribe Attestation: Yumiko Bates scribed for Tony Xavier MD on 03/09/18 at 0404. Scribe Documentation Reviewed: Yes Provider Attestation: The documentation as recorded by the Yumiko danielle accurately reflects the service I personally performed and the decisions made by me, Tony Xavier MD Status of Emi Document: Viewed
[2018-03-08] MEDS: Iohexol 300* (CONTRAST) 10 ML SDV IV ONE (22:41)
[2018-03-08] MEDS: Morphine VIAL* 4 MG/ML VIAL (1 ml vial) IV ONE (23:16)
[2018-03-09 00:46] VITALS: BP 119/78
== END 2018-03-09 00:45 | disposition home or self-care (01) ==
LOC: ED 19:19
DX: R10.31 Right lower quadrant pain (principal); J45.909 Unspecified asthma, uncomplicated; F32.9 Major depressive disorder, single episode, unspecified; F41.9 Anxiety disorder, unspecified; N83.9 Noninflammatory disorder of ovary, fallopian tube and broad ligament, unspecified
CPT/HCPCS: 36415; 74177; 76856; 80053; 81003; 81015; 83605; 83690; 84702; 85025; 86140; 87086; 87491; 87591; 96361; 96374; 96375; 99285; J1885; J2270; J2405; Q9967

== ENCOUNTER 2018-07-12 01:18 | Emergency (ER) | payer MEDICAID, OTHER ==
[2018-07-12] MEDS ORDERED: Ondansetron INJ* 2 MG/ML VIAL IV ONE (01:46)
[2018-07-12] MEDS ORDERED: Lidocaine 2% VISCOUS* 15 ML UDC PO ONE (01:46)
[2018-07-12] MEDS ORDERED: Ketorolac INJ* 30 MG/ML 1 ML VIAL IV PUSH ONE (01:46)
[2018-07-12] MEDS ORDERED: Al Hydrox/Mg Hydrox/Simet LIQ* 30 ML UDC PO ONE (01:46)
[2018-07-12] MEDS ORDERED: NS 0.9% 1000 ML** 2,000 ML IV ONE (01:46)
[2018-07-12] MEDS ORDERED: Famotidine IV* 10 MG/ML 2 ML (20 mg) IV SLOW PU ONE (01:46)
--- NOTE | 2018-07-12 01:47 | ED ---
Abdominal Pain/Female - HPI Summary HPI Summary: This patient is a 27 year old female presenting to [facility] with a chief complaint of flank pain since yesterday morning. Patient states that she drank much more than she normally doesand entire bottle of Hennessyand woke up with bilateral flank pain that radiates to her back, worse on the right side. Patient states that the pain is worsening. The pain is rated 10/10 in severity. Symptoms aggravated by nothing. Symptoms alleviated by nothing. Patient denies nausea, vomiting. - History of Current Complaint Chief Complaint: EDFlankPain Stated Complaint: KIDNEY PAIN AFTER DRINKING YESTERDAY PER PT Time Seen by Provider: 07/12/18 01:40 Hx Obtained From: Patient Onset/Duration: Sudden Onset, Still Present Timing: Constant Severity Currently: Severe Pain Intensity: 10 Pain Scale Used: 0-10 Numeric Location: Flank Radiates: Yes Radiates to: Back Aggravating Factor(s): Nothing Alleviating Factor(s): Nothing Allergies/Adverse Reactions: Allergies Allergy/AdvReac Type Severity Reaction Status Date / Time No Known Allergies Allergy Verified 07/12/18 01:22 PMH/Surg Hx/FS Hx/Imm Hx Previously Healthy: Yes Endocrine/Hematology History: Denies: Hx Anticoagulant Therapy, Hx Diabetes Cardiovascular History: Denies: Hx Cardiac Arrest, Hx Hypertension, Hx Myocardial Infarction Respiratory History: Reports: Hx Asthma - INHAILER DAILY GI History: Denies: Hx Ileostomy History: Denies: Hx Dialysis, Hx Renal Disease Musculoskeletal History: Denies: Hx Osteoporosis Sensory History: Denies: Hx Legally Blind, Hx Deafness Opthamlomology History: Denies: Hx Legally Blind Neurological History: Denies: Hx CVA Psychiatric History: Reports: Hx Anxiety, Hx Depression Denies: Hx Eating Disorder, Hx of Violent Episodes Against Others - Surgical History Surgery Procedure, Year, and Place: appendectomy, cholecystectomy - Immunization History Date of Influenza Vaccine: no Infectious Disease History: No Infectious Disease History: Denies: Traveled Outside the [place] in Last 30 Days - Family History Known Family History: Positive: Cardiac Disease, Hypertension, Diabetes - Social History Alcohol Use: Rare Hx Substance Use: No Substance Use Type: Reports: None Hx Tobacco Use: No Smoking Status (MU): Never Smoked Tobacco Review of Systems Negative: Fever Negative: Vomiting, Nausea Positive: flank pain Positive: Other - back pain All Other Systems Reviewed And Are Negative: Yes Physical Exam - Summary Physical Exam Summary: Appearance: Well-appearing, Well-nourished, lying in bed comfortably Skin: Warm, dry, no obvious rash Eyes: sclera anicteric, no conjunctival pallor ENT: mucous membranes moist, pharynx appears normal Neck: Supple, nontender Respiratory: Clear to auscultation, no signs of respiratory distress Cardiovascular: Normal S1, S2. No murmurs. Normal distal pulses in tibial and radial bilaterally. Abdomen: Soft, nontender, normal active bowel sounds present Musculoskeletal: Normal, Strength/ROM Intact Neurological: A&Ox3, awake and alert, mentation is normal, speech is fluent and appropriate Psychiatric: affect is normal, does not appear anxious or depressed Triage Information Reviewed: Yes Vital Signs On Initial Exam: Initial Vitals Temp Pulse Resp BP Pulse Ox 98.0 F 82 16 132/92 99 07/12/18 01:19 07/12/18 01:19 07/12/18 01:19 07/12/18 01:19 07/12/18 01:19 Vital Signs Reviewed: Yes Diagnostics - Vital Signs Vital Signs Temp Pulse Resp BP Pulse Ox 07/12/18 01:19 98.0 F 82 16 132/92 99 - Laboratory Result Diagrams: 07/12/18 01:53 07/12/18 01:53 Lab Statement: Any lab studies that have been ordered have been reviewed, and results considered in the medical decision making process. Abdominal Pain Fem Course/Dx - Course Course Of Treatment: This patient is a 27 year old female presenting to [facility] with a chief complaint of flank pain since yesterday morning. Patient states that she drank much more than she normally doesand entire bottle of Mary and woke up with bilateral flank pain that radiates to her back. Bloodwork Obtained. Urinalysis Obtained. In the ED course the patient was given NS 0.9% bolus IV, Zofran, Toradol, Lidocaine 2%, Maalox, Pepcid. Patient will be discharged with a dx of acute abd pain. Patient is advised to follow up with PCP in 3 days. The patient is agreeable with this plan. - Diagnoses Provider Diagnoses: Acute abdominal pain Discharge - Sign-Out/Discharge Documenting (check all that apply): Patient Departure Patient Received Moderate/Deep Sedation with Procedure: No - Discharge Plan Condition: Stable Disposition: HOME Patient Education Materials: Acute Abdominal Pain (ED) Referrals: Reid Perez MD [Primary Care Provider] - 2 Days (if not better) Additional Instructions: The tests we ran tonight were all normal, so there does not appear to be a dangerous reason for your pain. I suspect it is related to irritation in the stomach from the alcohol of Friday night, and if so it should gradually alexa over the next few days. You can take OTC pepcid, which may help with the discomfort as it heals. I do not expect you to worsen, so if you do we should see you back here. - Attestation Statements Document Initiated by Zitaibe: Yes Documenting Scribe: Donna Ga Provider For Whom Emi is Documenting (Include Credential): Haseeb Figueroa MD Scribe Attestation: Donna Bates, scribed for Haseeb Figueroa MD on 07/12/18 at 0348. Status of Scribe Document: Ready
[2018-07-12 02:04] LABS: Urine Appearance Cloudy; Urine Bilirubin Negative (Negative); Urine Blood Negative (Negative); Urine Color Yellow; Urine Glucose Negative (Negative); Urine Ketones Trace (Negative); Urine Nitrite Negative (Negative); Urine Protein Negative (Negative); Urine Urobilinogen Negative (Negative)
[2018-07-12 02:22] LABS: ALT 18 U/L (7-52); AST 19 U/L (13-39); Albumin 4.4 g/dL (3.2-5.2); Alkaline Phosphatase 66 U/L (34-104); Anion Gap 7 mmol/L (2-11); BUN/Creatinine Ratio 17.2 (8-20); Blood Urea Nitrogen 11 mg/dL (6-24); CO2 Carbon Dioxide 25 mmol/L (22-32); Calcium 9.4 mg/dL (8.6-10.3); Chloride 106 mmol/L (101-111); EGFR African American 134.7 (>60); EGFR Non-African American 111.3 (>60); Globulin 4.2 g/dL (2-4); Glucose 77 mg/dL (70-100); Potassium 3.5 mmol/L (3.5-5.0); Sodium 138 mmol/L (135-145); Total Protein 8.6 g/dL (6.4-8.9)
[2018-07-12 02:24] LABS: Hematocrit 40 % (35-47); Hemoglobin 12.6 g/dL (12.0-16.0); Mean Corpuscular HGB Conc 32 g/dL (31-36); Mean Corpuscular Hemoglobin 22 pg (27-31); Mean Platelet Volume 8.3 fL (7.4-10.4); Platelet Count 355 10^3/uL (150-450); Red Blood Count 5.67 10^6 /uL (3.70-4.87); Red Cell Distribution Width 17 % (10.5-15); White Blood Count 11.6 10^3/uL (3.5-10.8)
[2018-07-12 02:26] LABS: ABS Basophils 0.1 10^3/ul (0-0.2); ABS Eosinophils 0.1 10^3/ul (0-0.6); ABS Monocytes 1.1 10^3/ul (0-0.8); ABS Neutrophils 6.2 10^3/ul (1.5-7.7); Eosinophil % 1.1 %; Lymphocyte % 34.8 %; Mean Corpuscular Volume 70 fL (80-97); Nucleated Red Blood Cells % 0.1
[2018-07-12 02:29] LABS: HCG Pregnancy 5.85 mIU/mL
[2018-07-12 03:14] LABS: Alcohol < 10 mg/dL (<10)
[2018-07-12 04:19] VITALS: BP 114/79
== END 2018-07-12 04:19 | disposition home or self-care (01) ==
LOC: ED 01:18
DX: R10.84 Generalized abdominal pain (principal); M54.9 Dorsalgia, unspecified; F10.10 Alcohol abuse, uncomplicated
CPT/HCPCS: 36415; 80053; 80320; 81003; 83690; 84702; 85025; 96361; 96374; 96375; 96376; 99283; A9270-GY; G0480; J1885; J2405

== ENCOUNTER 2018-08-02 11:33 | Emergency (ER) | payer OTHER ==
--- NOTE | 2018-08-02 12:16 | ED ---
Abdominal Pain/Female - HPI Summary HPI Summary: A 27 y/o female presents to [facility] with a chief complaint of abdominal pain radiating to her back for the last two days. She also reports, nausea, headache and black stool but denies vomiting. At triage she rated her pain as a 6/10 in severity. Her LNMP was 2.5 weeks ago and she is unsure about chance of . She reports that her symptoms started after she drank too much alcohol. She also reports marijuana use. She is not on blood thinners or ibuprofen. She reports a SHx of a cyst removal, cholecystectomy, appendectomy and . She has a FHx of HTN, DM, and HLD from her father. - History of Current Complaint Chief Complaint: Graciela Stated Complaint: NAUASA , POSSSILE BOOD IN STOOL Time Seen by Provider: 08/02/18 12:10 Hx Obtained From: Patient Onset/Duration: Sudden Onset, Lasting Days, Still Present Timing: Constant Severity Initially: Moderate Severity Currently: Moderate Pain Intensity: 6 Pain Scale Used: 0-10 Numeric Location: Diffuse Radiates: Yes Radiates to: Back Character: Other: - unable to describe Aggravating Factor(s): Nothing Alleviating Factor(s): Nothing Associated Signs and Symptoms: Positive: Back Pain, Nausea. Negative: Fever, Vomiting Allergies/Adverse Reactions: Allergies Allergy/AdvReac Type Severity Reaction Status Date / Time tramadol Allergy Vomiting Verified 08/02/18 11:40 PMH/Surg Hx/FS Hx/Imm Hx Endocrine/Hematology History: Denies: Hx Anticoagulant Therapy, Hx Diabetes Cardiovascular History: Denies: Hx Cardiac Arrest, Hx Hypertension, Hx Myocardial Infarction Respiratory History: Reports: Hx Asthma - INHAILER DAILY GI History: Denies: Hx Ileostomy History: Denies: Hx Dialysis, Hx Renal Disease Musculoskeletal History: Denies: Hx Osteoporosis Sensory History: Denies: Hx Legally Blind, Hx Deafness Opthamlomology History: Denies: Hx Legally Blind Neurological History: Denies: Hx CVA Psychiatric History: Reports: Hx Anxiety, Hx Depression Denies: Hx Eating Disorder, Hx of Violent Episodes Against Others - Surgical History Surgery Procedure, Year, and Place: appendectomy, cholecystectomy - Immunization History Date of Influenza Vaccine: no Infectious Disease History: No Infectious Disease History: Denies: Traveled Outside the [place] in Last 30 Days - Family History Known Family History: Positive: Cardiac Disease, Hypertension, Diabetes, Other - HLD - Social History Alcohol Use: Rare Hx Substance Use: No Substance Use Type: Reports: None Substance Use Comment - Amount & Last Used: daily Hx Tobacco Use: No Smoking Status (MU): Never Smoked Tobacco Review of Systems Negative: Fever Positive: Abdominal Pain, Nausea, Other - black stool. Negative: Vomiting Positive: Myalgia - back pain Positive: Headache All Other Systems Reviewed And Are Negative: Yes Physical Exam - Summary Physical Exam Summary: VITAL SIGNS: Reviewed. GENERAL: Patient is a well-developed and nourished female who is lying comfortable in the stretcher. Patient is not in any acute respiratory distress. HEAD AND FACE: Normocephalic and atraumatic. EYES: PERRLA, EOMI x 2, No injected conjunctiva. EARS: Hearing grossly intact. Ear canals and tympanic membranes are WNL. MOUTH: Oropharynx within normal limits. NECK: Supple, trachea is midline, no adenopathy, no JVD. CHEST: Symmetric, no tenderness at palpation LUNGS: Clear to auscultation bilaterally. No wheezing or crackles. CVS: RRR, S1 and S2 present, no murmurs or gallops appreciated. ABDOMEN: Soft, non-tender. No signs of distention. Positive bowel sounds. No rebound no guarding, and no masses palpated. No abdominal bruit or pulsations. EXTREMITIES: FROM in all major joints, no edema, no cyanosis or clubbing. NEURO: Alert and oriented x 3. No acute neurological deficits. Speech is normal. SKIN: Dry and warm. Rectal: Emili present as outboard motor tester for rectal exam, small hemorrhoid, not bleeding, no melena, no gross blood, normal sphinctal tone Triage Information Reviewed: Yes Vital Signs On Initial Exam: Initial Vitals Temp Pulse Resp BP Pulse Ox 98.5 F 113 16 122/90 96 08/02/18 11:35 08/02/18 11:35 08/02/18 11:35 08/02/18 11:35 08/02/18 11:35 Vital Signs Reviewed: Yes Diagnostics - Vital Signs Vital Signs Temp Pulse Resp BP Pulse Ox 08/02/18 11:35 98.5 F 113 16 122/90 96 - Laboratory Result Diagrams: 08/02/18 13:02 08/02/18 13:02 Lab Statement: Any lab studies that have been ordered have been reviewed, and results considered in the medical decision making process. - Radiology abdomen x-ray Radiology Interpretation Completed By: Radiologist Summary of Radiographic Findings: No abdominal pelvic pathologic process evident. ED physician has reviewed this imaging report. Re-Evaluation - Re-Evaluation First Eval Re-Evaluation Time: 14:16 Change: Improved Comment: Discussed results and plan for discharge Abdominal Pain Fem Course/Dx - Course Course Of Treatment: A 27 y/o female presents to [facility] with a chief complaint of abdominal pain radiating to her back for the last two days. She also reports , nausea, headache and black stool but denies vomiting. At triage she rates her pain as a 6/10 in severity. Her LNMP was 2.5 weeks ago and she is unsure about chance of . She reports that her symptoms started after she drank too much alcohol. She also reports marijuana use. She is not on blood thinners or ibuprofen. She reports a SHx of a cyst removal, cholecystectomy, appendectomy and . She has a FHx of HTN, DM, and HLD from her father. Blood work without any significant abnormality except for small of 11.9, hematocrit 37, and CRP is 17.4. The beta-hCG is negative for . Occult blood is negative. In the ED course the patient was given IV fluids and Zofran for nausea and vomiting. After this medication was given the symptoms have subsided. The patient continues to be asymptomatic at this point. I discussed all the findings and test results with the patient. Patient was instructed to return to the emergency room immediately if any of the symptoms return worsens. Plan of care was discussed with the patient and understands and agrees. All questions were answered at patient satisfaction. There were no further complaints or concerns. Lung exam before discharge: CTA B/L. Good air exchange. No wheezing or crackles heard. CVS: S1 and S2 present. No murmurs appreciated. Patient is alert and oriented x 3. Patient is hemodynamically stable. Patient will be discharged home with follow up PCP in the next 2-3 days. - Diagnoses Provider Diagnoses: Nausea Discharge - Sign-Out/Discharge Documenting (check all that apply): Patient Departure - DC Patient Received Moderate/Deep Sedation with Procedure: No - Discharge Plan Condition: Stable Disposition: HOME Prescriptions: Ondansetron TAB* [Zofran 4 MG Tab*] 4 mg PO Q6H PRN #10 tab PRN Reason: Nausea Referrals: Kesha Sumner, ACCOUNT SERVICE ASSOCIATE [Primary Care Provider] - (2-3 days) Additional Instructions: FOLLOW UP WITH YOUR PRIMARY CARE PROVIDER WITHIN ONE WEEK. RETURN TO THE ED FOR ANY WORSENING OR NEW SYMPTOMS. - Billing Disposition and Condition Condition: STABLE Disposition: Home - Attestation Statements Document Initiated by Scribe: Yes Documenting Scribe: Luke Comer Provider For Whom Emi is Documenting (Include Credential): Reid Verdin MD Scribe Attestation: Luke Bates, scribed for Reid Verdin MD on 08/03/18 at 0816. Scribe Documentation Reviewed: Yes Provider Attestation: The documentation as recorded by the Luke danielle accurately reflects the service I personally performed and the decisions made by Reid cade MD Status of Scribe Document: Viewed
[2018-08-02] MEDS ORDERED: Ondansetron INJ* 2 MG/ML VIAL IV ONE (12:56)
[2018-08-02] MEDS ORDERED: NS 0.9% 1000 ML** 1,000 ML IV ONE (12:56)
[2018-08-02 13:10] LABS: ABS Basophils 0.1 10^3/ul (0-0.2); ABS Lymphocytes 2.8 10^3/ul (1.0-4.8); ABS Monocytes 0.9 10^3/ul (0-0.8); ABS Neutrophils 4.6 10^3/ul (1.5-7.7); Eosinophil % 0.6 %; Hematocrit 37 % (35-47); Hemoglobin 11.9 g/dL (12.0-16.0); Lymphocyte % 33.1 %; Mean Corpuscular HGB Conc 32 g/dL (31-36); Mean Corpuscular Hemoglobin 22 pg (27-31); Mean Corpuscular Volume 70 fL (80-97); Mean Platelet Volume 8.5 fL (7.4-10.4); Nucleated Red Blood Cells % 0.1; Platelet Count 270 10^3/uL (150-450); Red Blood Count 5.33 10^6 /uL (3.70-4.87); Red Cell Distribution Width 17 % (10.5-15); White Blood Count 8.4 10^3/uL (3.5-10.8)
[2018-08-02 13:25] LABS: ALT 12 U/L (7-52); AST 16 U/L (13-39); Albumin 4.1 g/dL (3.2-5.2); Albumin/Globulin Ratio 1.1 (1-3); Alkaline Phosphatase 67 U/L (34-104); Anion Gap 5 mmol/L (2-11); BUN/Creatinine Ratio 15.8 (8-20); Blood Urea Nitrogen 9 mg/dL (6-24); CO2 Carbon Dioxide 26 mmol/L (22-32); Calcium 9.3 mg/dL (8.6-10.3); Chloride 105 mmol/L (101-111); EGFR African American 153.9 (>60); EGFR Non-African American 127.2 (>60); Globulin 3.7 g/dL (2-4); Glucose 89 mg/dL (70-100); Potassium 3.7 mmol/L (3.5-5.0); Sodium 136 mmol/L (135-145); Total Protein 7.8 g/dL (6.4-8.9)
[2018-08-02 13:32] LABS: HCG Pregnancy < 0.60 mIU/mL
[2018-08-02 14:31] LABS: Urine Appearance Clear; Urine Bacteria Absent (Absent); Urine Bilirubin Negative (Negative); Urine Blood Negative (Negative); Urine Color Yellow; Urine Glucose Negative (Negative); Urine Ketones Trace (Negative); Urine Nitrite Negative (Negative); Urine Protein Negative (Negative); Urine Red Blood Cell Absent (Absent); Urine Specific Gravity 1.019 (1.010-1.030); Urine Squamous Epithelial Cell Present (Absent); Urine Urobilinogen Negative (Negative); Urine White Blood Cell 1+(6-10/hpf) (Absent)
[2018-08-02 14:40] VITALS: BP 122/84
== END 2018-08-02 14:39 | disposition home or self-care (01) ==
LOC: ED 11:33
DX: R11.0 Nausea (principal); M54.9 Dorsalgia, unspecified; R10.84 Generalized abdominal pain; R51 Headache; R19.5 Other fecal abnormalities; J45.909 Unspecified asthma, uncomplicated; Z32.02 Encounter for pregnancy test, result negative; Z88.5 Allergy status to narcotic agent
CPT/HCPCS: 36415; 74019; 80053; 81003; 81015; 82272; 83690; 84702; 85025; 86140; 87086; 99282; J2405

== ENCOUNTER 2018-09-04 11:23 | Emergency (ER) | payer OTHER ==
--- NOTE | 2018-09-04 13:44 | ED ---
Abdominal Pain/Female - HPI Summary HPI Summary: A 27 y/o female presents to [facility] with a chief complaint of abdominal pain for the past week. She describes her pain as a diffuse ache. She denies vomiting but reports nausea and diarrhea. She denies vaginal bleeding or discharge, or urinary symptoms. At triage she rated her pain as a 10/10 in severity. She had an appendectomy and cholecystectomy. She denies alcohol, smoking or drugs. - History of Current Complaint Chief Complaint: EDAbdPain Stated Complaint: ABD PAIN Time Seen by Provider: 09/04/18 13:38 Hx Obtained From: Patient Onset/Duration: Sudden Onset, Lasting Days, Still Present Timing: Constant Severity Initially: Severe Severity Currently: Severe Pain Intensity: 10 Pain Scale Used: 0-10 Numeric Location: Diffuse Radiates: No Character: Other: - aching Aggravating Factor(s): Nothing Alleviating Factor(s): Nothing Associated Signs and Symptoms: Positive: Diarrhea. Negative: Fever, Nausea, Vomiting Allergies/Adverse Reactions: Allergies Allergy/AdvReac Type Severity Reaction Status Date / Time tramadol Allergy Vomiting Verified 09/04/18 11:26 PMH/Surg Hx/FS Hx/Imm Hx Endocrine/Hematology History: Denies: Hx Anticoagulant Therapy, Hx Diabetes Cardiovascular History: Denies: Hx Cardiac Arrest, Hx Hypertension, Hx Myocardial Infarction Respiratory History: Reports: Hx Asthma - INHAILER DAILY GI History: Denies: Hx Ileostomy History: Denies: Hx Dialysis, Hx Renal Disease Musculoskeletal History: Denies: Hx Osteoporosis Sensory History: Denies: Hx Legally Blind, Hx Deafness Opthamlomology History: Denies: Hx Legally Blind Neurological History: Denies: Hx CVA Psychiatric History: Reports: Hx Anxiety, Hx Depression Denies: Hx Eating Disorder, Hx of Violent Episodes Against Others - Surgical History Surgery Procedure, Year, and Place: appendectomy, cholecystectomy - Immunization History Date of Influenza Vaccine: no Infectious Disease History: No Infectious Disease History: Denies: Traveled Outside the [place] in Last 30 Days - Family History Known Family History: Positive: Cardiac Disease, Hypertension, Diabetes, Other - HLD - Social History Alcohol Use: Rare Hx Substance Use: No Substance Use Type: Reports: None Substance Use Comment - Amount & Last Used: daily Hx Tobacco Use: No Smoking Status (MU): Never Smoked Tobacco Review of Systems Negative: Fever Positive: Abdominal Pain, Diarrhea, Nausea. Negative: Vomiting Genitourinary: Negative - vaginal bleeding or discharge Positive: no symptoms reported All Other Systems Reviewed And Are Negative: Yes Physical Exam - Summary Physical Exam Summary: Appearance: Well appearing, no pain distress Skin: warm, dry, reflects adequate perfusion Head/face: normal Eyes: EOMI, PAMELA ENT: normal Neck: supple, non-tender Respiratory: CTA, breath sounds present Cardiovascular: RRR, pulses symmetrical Abdomen: diffuse tenderness, soft Musculoskeletal: normal, strength/ROM intact Neuro: normal, sensory motor intact, A&Ox3 Triage Information Reviewed: Yes Vital Signs On Initial Exam: Initial Vitals Temp Pulse Resp BP Pulse Ox 97.3 F 68 17 143/87 99 09/04/18 11:24 09/04/18 11:24 09/04/18 11:24 09/04/18 11:24 09/04/18 11:24 Vital Signs Reviewed: Yes Diagnostics - Vital Signs Vital Signs Temp Pulse Resp BP Pulse Ox 09/04/18 13:12 98.1 F 65 18 121/81 99 09/04/18 11:24 97.3 F 68 17 143/87 99 - Laboratory Result Diagrams: 09/04/18 14:12 09/04/18 14:12 Lab Statement: Any lab studies that have been ordered have been reviewed, and results considered in the medical decision making process. - CT abdomen/pelvis CT Interpretation Completed By: Radiologist Summary of CT Findings: FATTY INFILTRATION OF THE LIVER. NO APPRECIABLE DIVERTICULOSIS. SMALL AMOUNT OF FREE FLUID WITHIN THE PELVIC CUL-DE-SAC. THIS MAY BE PHYSIOLOGIC WITHIN A. REPRODUCTIVE AGE FEMALE. ED physician has reviewed this imaging report. Re-Evaluation - Re-Evaluation First Eval Re-Evaluation Time: 17:14 Change: Unchanged Comment: discussed results and plan for DC Abdominal Pain Fem Course/Dx - Course Course Of Treatment: A 27 y/o female presents to [facility] with a chief complaint of abdominal pain for the past week. The physical exam revealed diffuse abdominal tenderness. Blood work, chemistries and UA obtained. In the ED course the patient was given Sodium Chloride IV. Abdomen/pelvis CT impression: FATTY INFILTRATION OF THE LIVER. NO APPRECIABLE DIVERTICULOSIS. SMALL AMOUNT OF FREE FLUID WITHIN THE PELVIC CUL-DE-SAC. THIS MAY BE PHYSIOLOGIC WITHIN A. REPRODUCTIVE AGE FEMALE. The patient will be discharged with a prescription for Protonix and follow up with her PCP. The patient is agreeable with this plan. - Diagnoses Differential Diagnosis: Positive: Appendicitis, Diverticulitis, Provider Diagnoses: Nonspecific abdominal pain Discharge - Sign-Out/Discharge Documenting (check all that apply): Patient Departure - DC Patient Received Moderate/Deep Sedation with Procedure: No - Discharge Plan Condition: Stable Disposition: HOME Prescriptions: Pantoprazole TAB * [Protonix TAB*] 40 mg PO DAILY #30 tab Patient Education Materials: Acute Abdominal Pain (DC) Referrals: Kesha Sumner ELECTRONIC OPERATOR [Primary Care Provider] - 3 Days Additional Instructions: Return to the ED if you experience any new or worsening symptoms. - Billing Disposition and Condition Condition: STABLE Disposition: Home - Attestation Statements Document Initiated by Scribe: Yes Documenting Scribe: Luke Comer Provider For Whom Emi is Documenting (Include Credential): Shivam Cameron MD Scribe Attestation: Luke Bates scribed for Shivam Cameron MD on 09/04/18 at 1743. Scribe Documentation Reviewed: Yes Provider Attestation: The documentation as recorded by the Luke danielle accurately reflects the service I personally performed and the decisions made by Shivam cade MD Status of Scribe Document: Viewed
[2018-09-04] MEDS ORDERED: NS 0.9% 1000 ML** 1,000 ML IV SCH (14:00)
[2018-09-04 14:17] LABS: Urine Appearance Cloudy; Urine Bilirubin Negative (Negative); Urine Blood Negative (Negative); Urine Color Yellow; Urine Glucose Negative (Negative); Urine Ketones Negative (Negative); Urine Nitrite Negative (Negative); Urine Protein Negative (Negative); Urine Specific Gravity 1.027 (1.010-1.030); Urine Urobilinogen Negative (Negative)
[2018-09-04 14:45] LABS: ABS Basophils 0.1 10^3/ul (0-0.2); ABS Eosinophils 0.1 10^3/ul (0-0.6); ABS Lymphocytes 2.9 10^3/ul (1.0-4.8); ABS Monocytes 0.7 10^3/ul (0-0.8); ABS Neutrophils 4.2 10^3/ul (1.5-7.7); Eosinophil % 1.6 %; Hematocrit 40 % (35-47); Hemoglobin 13.1 g/dL (12.0-16.0); Lymphocyte % 36.4 %; Mean Corpuscular HGB Conc 33 g/dL (31-36); Mean Corpuscular Hemoglobin 23 pg (27-31); Mean Corpuscular Volume 71 fL (80-97); Mean Platelet Volume 8.8 fL (7.4-10.4); Nucleated Red Blood Cells % 0.1; Platelet Count 273 10^3/uL (150-450); Red Blood Count 5.69 10^6 /uL (3.70-4.87); Red Cell Distribution Width 17 % (10-15); White Blood Count 7.9 10^3/uL (3.5-10.8)
[2018-09-04 14:55] LABS: ALT 15 U/L (7-52); AST 20 U/L (13-39); Albumin 4.3 g/dL (3.2-5.2); Albumin/Globulin Ratio 1.1 (1-3); Alkaline Phosphatase 72 U/L (34-104); Anion Gap 7 mmol/L (2-11); BUN/Creatinine Ratio 17.3 (8-20); Blood Urea Nitrogen 9 mg/dL (6-24); CO2 Carbon Dioxide 25 mmol/L (22-32); Calcium 9.3 mg/dL (8.6-10.3); Chloride 107 mmol/L (101-111); EGFR African American 171.2 (>60); EGFR Non-African American 141.5 (>60); Glucose 81 mg/dL (70-100); Potassium 3.6 mmol/L (3.5-5.0); Sodium 139 mmol/L (135-145); Total Protein 8.3 g/dL (6.4-8.9)
[2018-09-04 14:56] LABS: HCG Pregnancy < 0.60 mIU/mL
[2018-09-04] MEDS ORDERED: Iohexol 300* (CONTRAST) 10 ML SDV IV ONE (15:31)
[2018-09-04] MEDS ORDERED: Pantoprazole TAB * 40 MG TAB PO ONE (17:14)
[2018-09-04 21:10] VITALS: BP 141/100
== END 2018-09-04 18:10 | disposition home or self-care (01) ==
LOC: ED 11:23
DX: R10.9 Unspecified abdominal pain (principal)
CPT/HCPCS: 36415; 74177; 80053; 81003; 83690; 84702; 85025; 99283; A9270-GY; Q9967

== ENCOUNTER 2019-05-14 08:24 | Emergency (ER) | payer OTHER ==
--- OUTSIDE RECORDS SUMMARY | 2019-05-14 08:46 | XMS REPORT | Continuity of Care Document ---
:1990 External Reference #:[id number] Author Name Yumiko Calhoun MD (transmitted by agent of provider Anastasiya Flaherty) Address [address] [place] [address] Problems Active Problems Provider Date Thalassemia Onset: 09/24/2018 Asthma Onset: 08/19/2018 Bipolar I disorder Onset: 08/19/2018 Backache Onset: 08/19/2018 Seasonal allergy Onset: 08/19/2018 Social History Type Date Description Comments Sex Female Tobacco Use Start: Unknown Patient has never smoked Tobacco Use Start: Unknown marijuana every day Smoking Status Reviewed: 05/13/19 marijuana every day Allergies, Adverse Reactions, Alerts Active Allergies Reaction Severity Comments Date Latuda No Reaction Indicated 11/13/2018 Tramadol Hydrochloride Nausea, vomiting and diarrhea Moderate 11/13/2018 Medications Active Medications SIG Qnty Indications Ordering Date Provider Prednisone take 2 tablet 14tabs M54.5 Yumiko Calhoun, 05/13/2019 20mg Tablets daily for 7 days Nebulizer to be used every J45.909 Yumiko Calhoun, 04/28/2019 Device 4-6 hours with albuterol as needed for symptoms Risperidone take 1 tablet by 30tabs F31.9 Yumiko Calhoun, 04/28/2019 3mg Tablets mouth each night Ventolin HFA 2 every 4 hours 1units Yumiko Calhoun, 08/18/2018 108(90Base) inhalation mcg/Act Aerosol Cyclobenzaprine HCL one to two Unknown 5mg tablets by mouth Tablets every 8 hours as needed History Medications Clindamycin Phosphate use 1 applicator 80gm N89.8 Yumiko Calhoun, 2019 - 2% vaginally daily 04/27/2019 Cream for 7 days Lidocaine Pain Relief 1 patch to lower 5units M54.5 ROBSON Mcdonough 2018 - 4% back every 12 02/05/2019 Patches hours- off 12 hours Quetiapine Fumarate ER take 1 tablet by 60tabs ROBSON Mcdonough 2018 - mouth at bedtime 02/15/2019 150mg Tablets ER 24HR for 3 days then increase to 2 tablets by mouth at bedtime Symbicort take 2 puffs by 13.8gm Yumiko Calhoun, 01/11/2019 - 80-4.5mcg/Act mouth in the MD 01/25/2019 Aerosol moring and in the evening Ciprofloxacin HCL 1 tab by mouth 14tabs ROBSON Mcdonough 12/18/2018 - 500mg twice a day 01/11/2019 Tablets Sulfamethoxazole/Trime 1 tab by mouth 6tabs N39.0 ROBSON Mcdonough 2018 - thoprim DS twice a day 01/11/2019 800-160mg Tablets Phenazopyridine HCL 1 tab three times 6tabs N39.0 ROBSON Mcdonough 2018 - 200mg a day 01/11/2019 Tablets Immunizations CPT Code Status Date Vaccine Lot # [id number] Given 12/08/2018 Flu < 65 years [id number] Vital Signs Date Vital Result Comment 05/13/2019 3:47pm BP Systolic 144 mmHg LT arm BP Diastolic 76 mmHg LT arm Height 64 inches 5'4" Weight 167.00 lb Heart Rate 66 /min Body Temperature 97.5 F Respiratory Rate 98 /min room air BMI (Body Mass Index) 28.7 kg/m2 04/28/2019 1:19pm BP Systolic 122 mmHg BP Diastolic 78 mmHg Heart Rate 71 /min Body Temperature 98.4 F O2 % BldC Oximetry 96 % Results Test Acquired Date Facility Test Result H/L Range Note Xray 05/13/2019 [facility] MRI Lumbar <pending> [address] [place] [address] Contrast [phone] Order 04/28/2019 [facility] Physical <pending> Therapy Evaluate And Treat Laboratory test 04/07/2019 [facility] Cytology SEE RESULT [address] [place] [address] [phone] CFM Urinalysis 03/18/2019 [facility] Urine Specific >1.030 ( )- - [place] Ua PH Test Strip 6.0 Ua WBC neg Ua Protein 100 Urine Glucose QL neg Urine Ketones QL Test Strip 15 Urine Bilirubin TTL QL T-Strip small Urine Urobilinogen QN TS 0.2 Urine Nitrite QL TS neg Ua Occult Blood trace Laboratory test 03/18/2019 [facility] Gardnerella/Yeast: SEE RESULT [address] [place] [address] [phone] GC/Chlamydia 03/18/2019 [facility] GCCHL Disclaimer (SEE NOTE) 3 Amplified Rna [address] [place] [address] [phone] Chlamydia trachomatis Ivone Negative Negative Neisseria gonorrhoeae (GC) Ivone Negative Negative Laboratory test 03/18/2019 [facility] Culture Genital SEE RESULT [address] & [place] [address] [phone] Laboratory test 03/18/2019 [facility] CFM Urine, negative finding ( )- - Urine Culture And 12/16/2018 [facility] Urine Culture SEE RESULT [address] [place] [address] [phone] CFM Urinalysis 12/16/2018 [facility] Urine Specific 1.015 ( )- - [place] Ua PH Test Strip 6.5 Ua Color <pending> Ua Appearance <pending> Ua WBC large Ua Protein trace Urine Glucose QL neg Urine Ketones QL Test Strip neg Urine Bilirubin TTL QL T-Strip neg Urine Urobilinogen QN TS 0.2 Urine Nitrite QL TS neg Ua Occult Blood trace 1 SEE RESULT BELOW Name: ECHO WESLEY : [address]: Jonatan Melendrez DO Acct: [id number] Unit: [id number] AGE: 28 Location: [facility] Re04/07/19 SEX: F Status: REG REF SPEC: [id number] UZMA: 04/07/19-1119 [facility] DR: Jonatan Melendrez, REQ: [id number] RECD: 04/07/19-1605 STATUS: HOLLIE WAGONER DR: Yumiko Calhoun MD _ ORDERED: TP IMAGE ANALYS COMMENTS: [id number] FINAL DIAGNOSIS Negative for Intraepithelial lesion or Malignancy Shift in sheryl suggestive of bacterial vaginosis SPECIMEN(S) RECEIVED A. Ectocervical/Endocervical CYTOLOGY ADEQUACY Specimen Adequacy: Satisfactory of evaluation Transformation zone component identified CYTOLOGY PATIENT INFORMATION Patient Information: HPV: Thin Layer Pap Test w/reflex to high risk HPV RNA testing when ASCUS Actual Specimen Date: 04/07/19 Last Menstrual Date: 04/02/19 Spec Date if unknown: 2014 Signed by and Reported on: ANNIE Pisano (ASCP) 1538 This Pap test was evaluated with the assistance of the [employer] Test Imaging System. Due to cytologic findings at the land mobile radio technician microscope, comprehensive manual rescreening by a Mat Roller may be required. The Pap Smear is a screening test designed to aid in the detection of premalignant and malignant conditions of the uterine cervix. It is not a diagnostic procedure and should not be used as the sole means of detecting cervical cancer. Both false- positive and false- negative reports do occur. Depending on your risk status, a Pap smear should be obtained and evaluated every 1-3 years. END OF REPORT DEPARTMENT OF PATHOLOGY, [address] [place] [address] Amish Castelan M.D. Director [facility] # [id number] 2 SEE RESULT BELOW Name: HERI WESLEY : [address]: Yumiko Calhoun MD Acct: [id number] Unit: [id number] AGE: 28 Location: [facility] Re03/18/19 SEX: F Status: REG REF SPEC: [id number] UZMA: 03/18/19-1556 [facility] DR: Yumiko Calhoun MD REQ: [id number] RECD: 03/18/19 STATUS: RES _ SOURCE: VAGINAL SPDESC: ORDERED: Genital Culture, Jazmine,Yeast DNA, Trich DNA COMMENTS: [id number] Would you like to order Trichomonas Vaginalis testing? Yes Procedure Result Reported Site Genital Culture PENDING Gardnerella/Yeast: Vaginal DNA Final 03/19/19- 1327 ML Organism 1 POSITIVE DEEPALI Organism 2 POSITIVE GARDNERELLA The presence of G. vaginalis, although suggestive, is not diagnostic for bacterial vaginosis. Results should be interpreted in conjuction with other clinical and laboratory data available. Women with vaginal discharge should be evaluated for risk factors of cervicitis and pelvic inflammatory disease, toxic shock syndrome (S.aureus), and if present, evaluated for organisms not included in this assay such as N. gonorrhoeae, C. trachomatis, Mobiluncus, Mycoplasma and/or Prevotella. Mixed infections may occur. The performance of this test on patient specimens collected during or immediately after antimicrobial therapy is unknown. The presence or absence of Deepali species, or G. vaginalis cannot be used as a test for therapeutic success or failure. CONTINUED ON NEXT PAGE DEPARTMENT OF PATHOLOGY, [address] [place] [address] Amish Castelan M.D. Director [facility] # [id number] Patient: DALTONHERI [id number] (Continued) Specimen: [id number] Collected: 03/18/19-155 Received: 03/18/19-007 (Continued) Procedure Result Reported Site Gardnerella/Yeast: Vaginal DNA Final (continued) 03/19/191326 Trichomonas: Vaginal DNA Probe Final 03/19/191326 ML Organism 1 Negative Trichomonas The presence or absence of T. vaginalis cannot be used as a test for therapeutic success or failure. * ML - Main Lab . END OF REPORT DEPARTMENT OF PATHOLOGY, [address] [place] [address] Amish Castelan M.D. Director [facility] # [id number] 3 As with all diagnostic procedures, the laboratory results obtained should be used in conjunction with other clinical information available to the physician, including confirmation by another method, as applicable. 4 SEE RESULT BELOW Name: HERI WESLEY : [address]: Yumiko Calhoun MD Acct: [id number] Unit: [id number] AGE: 28 Location: [facility] Re03/18/19 SEX: F Status: REG REF SPEC: [id number] UZMA: 03/18/19-1556 [facility] DR: Yumiko Calhoun MD REQ: [id number] RECD: 03/18/19-173 STATUS: COMP _ SOURCE: VAGINAL SPDESC: ORDERED: Genital Culture, Jazmine,Yeast DNA, Trich DNA COMMENTS: [id number] Would you like to order Trichomonas Vaginalis testing? Yes Procedure Result Reported Site Genital Culture Final 03/20/19- 1330 ML Organism 1 STREP GROUP B Quantity 3+ Organism 2 NORMAL SHERYL Quantity 1+ Routine genital cultures do not include selective agar for Neisseria gonorrhoeae. Molecular testing offers better test sensitivity and therefore is the preferred test methodology for identifying this organism. Susceptibility testing of penicillins and other B-lactams approved by FDA for treatment of Streptococcus pyogenes (Group A Strep) and Streptococcus agalactiae (Group B Strep) is not necessary for clinical purposes and need not be done routinely, since as with vancomycin, resistant strains have not been recognized. (CLSI U608-Z60;p.66) Positive isolates will be saved for one week. Please call the Microbiology Laboratory if further susceptibility testing is needed. Gardnerella/Yeast: Vaginal DNA Final 03/19/19- 1327 ML Organism 1 POSITIVE DEEPALI Organism 2 POSITIVE GARDNERELLA CONTINUED ON NEXT PAGE DEPARTMENT OF PATHOLOGY, [address] [place] [address] Amish Castelan M.D. Director [facility] # [id number] Patient: DALTONHERI [id number] (Continued) Specimen: [id number] Collected: 03/18/19-1555 Received: 03/18/19-1730 (Continued) Procedure Result Reported Site Gardnerella/Yeast: Vaginal DNA Final (continued) 03/19/19- 1326 The presence of G. vaginalis, although suggestive, is not diagnostic for bacterial vaginosis. Results should be interpreted in conjuction with other clinical and laboratory data available. Women with vaginal discharge should be evaluated for risk factors of cervicitis and pelvic inflammatory disease, toxic shock syndrome (S.aureus), and if present, evaluated for organisms not included in this assay such as N. gonorrhoeae, C. trachomatis, Mobiluncus, Mycoplasma and/or Prevotella. Mixed infections may occur. The performance of this test on patient specimens collected during or immediately after antimicrobial therapy is unknown. The presence or absence of Deepali species, or G. vaginalis cannot be used as a test for therapeutic success or failure. Trichomonas: Vaginal DNA Probe Final 03/19/19- 1326 ML Organism 1 Negative Trichomonas The presence or absence of T. vaginalis cannot be used as a test for therapeutic success or failure. * ML - Main Lab . END OF REPORT DEPARTMENT OF PATHOLOGY, [address] [place] [address] Amish Castelan M.D. Director [facility] # [id number] 5 SEE RESULT BELOW Name: HERI WESLEY : [address]: Tess Chandler NP Acct: [id number] Unit: [id number] AGE: 27 Location: [facility] Re12/16/18 SEX: F Status: REG REF SPEC: [id number] UZMA: 12/16/[address]: Tess Chandler NP REQ: [id number] RECD: 12/16/18 STATUS: COMP _ SOURCE: URINE SPDESC: ORDERED: Urine Culture COMMENTS: [id number] Urine Source: Random Procedure Result Reported Site Urine Culture Final 12/17/18- 1804 ML Organism 1 STAPHYLOCOCCUS SAPROPHYTICUS [place] Count >100,000 (Many) CFU/ML Routine sensitivity testing of urine isolates of S. saprophyticus is not advised, because infections respond to concentrations achieved in urine of antimicrobial agents commonly used to treat acute, uncomplicated urinary tract infections (e.g. nitrofurantoin, trimethoprim+/- sulfamethoxazole, or a fluoroquinolone). [facility] March 2001 * - [facility] . END OF REPORT DEPARTMENT OF PATHOLOGY, [address] [place] [address] Amish Castelan M.D. Director [facility] # [id number] Procedures Date Code Description Status 04/28/2019 16151 Brief Emotional/Behav Assessment W/ Scoring Doc Per Completed [facility] 01/11/2019 90338 Brief Emotional/Behav Assessment W/ Scoring Doc Per Completed [facility] Medical Devices Description No Information Available Encounters Type Date Location Provider Dx Diagnosis Office Visit 04/28/2019 1:15p JENNIFER Calhoun MD M54.5 Low back pain J45.909 Unspecified asthma, uncomplicated F31.9 Bipolar disorder, unspecified G47.00 Insomnia, unspecified Z13.31 Encounter for screening for depression Office Visit 03/18/2019 3:15p JENNIFER Calhoun MD R11.0 Nausea N89.8 Other specified noninflammatory disorders of vagina Office Visit 01/27/2019 9:45a ROBSON Espino M54.5 Low back pain F31.9 Bipolar disorder, unspecified Office Visit 01/11/2019 10:00a JENNIFER Calhoun MD F31.9 Bipolar disorder, unspecified J45.909 Unspecified asthma, uncomplicated Z13.31 Encounter for screening for depression Office Visit 12/16/2018 2:15p ROBSON Espino N39.0 Urinary tract infection, site not specified R35.0 Frequency of micturition Assessments Date Code Description Provider 05/13/2019 M54.5 Low back pain Yumiko Calhoun MD 04/28/2019 M54.5 Low back pain Yumiko Calhoun MD 04/28/2019 J45.909 Unspecified asthma, uncomplicated Yumiko Calhoun MD 04/28/2019 F31.9 Bipolar disorder, unspecified Yumiko Calhoun MD 04/28/2019 G47.00 Insomnia, unspecified Yumiko Calhoun MD 04/28/2019 Z13.31 Encounter for screening for depression Yumiko Calhoun MD 03/18/2019 R11.0 Nausea Yumiko Calhoun MD 03/18/2019 N89.8 Other specified noninflammatory disorders of Yumiko Calhoun MD vagina 01/27/2019 M54.5 Low back pain ROBSON Mcdonough 01/27/2019 F31.9 Bipolar disorder, unspecified ROBSON Mcdonough 01/11/2019 F31.9 Bipolar disorder, unspecified Yumiko Calhoun MD 01/11/2019 J45.909 Unspecified asthma, uncomplicated Yumiko Calhoun MD 01/11/2019 Z13.31 Encounter for screening for depression Yumiko Calhoun MD 12/16/2018 N39.0 Urinary tract infection, site not specified ROBSON Mcdonough 12/16/2018 R35.0 Frequency of micturition ROBSON Mcdonough 12/08/2018 Z23 Encounter for immunization Nurse Plan of Treatment 05/13/2019 - Yumiko Calhoun MDM54.5 Low back painNew Medication:Prednisone 20 mg - take 2 tablet daily for 7 days Functional Status Description No Information Available Mental Status Description No Information Available Referrals Description No Information Available
--- OUTSIDE RECORDS SUMMARY | 2019-05-14 08:46 | XMS REPORT | Continuity of Care Document ---
:1990 External Reference #:[id number] Author Name Yumiko Calhoun MD Address [address] [facility] [place] [address] Problems Active Problems Provider Date Thalassemia Onset: 09/24/2018 Asthma Onset: 08/19/2018 Bipolar I disorder Onset: 08/19/2018 Backache Onset: 08/19/2018 Seasonal allergy Onset: 08/19/2018 Social History Type Date Description Comments Sex Female Tobacco Use Start: Unknown Patient has never smoked Smoking Status Reviewed: 04/28/19 Patient has never smoked Allergies, Adverse Reactions, Alerts Active Allergies Reaction Severity Comments Date Latuda No Reaction Indicated 11/13/2018 Tramadol Hydrochloride Nausea, vomiting and diarrhea Moderate 11/13/2018 Medications Active Medications SIG Qnty Indications Ordering Date Provider Nebulizer to be used every J45.909 Yumiko Calhoun, 04/28/2019 Device 4-6 hours with albuterol as needed for symptoms Risperidone take 1 tablet by 30tabs F31.9 Yumiko Calhoun, 04/28/2019 3mg mouth each night Tablets Ventolin HFA 2 every 4 hours 1units Yumiko Calhoun, 08/18/2018 inhalation 108(90Base) mcg/Act Aerosol History Medications Clindamycin Phosphate use 1 applicator [...] CPT Code Status Date Vaccine Lot # [id number] Given 12/08/2018 Flu < 65 years [id number] Vital Signs Date Vital Result Comment 04/28/2019 1:19pm BP Systolic 122 mmHg BP Diastolic 78 mmHg Heart Rate 71 /min Body Temperature 98.4 F O2 % BldC Oximetry 96 % 03/18/2019 3:10pm BP Systolic 122 mmHg BP Diastolic 76 mmHg Weight 166.00 lb Heart Rate 68 /min Body Temperature 98.7 F O2 % BldC Oximetry 99 % Results Test Acquired Date Facility Test Result H/L Range Note Order 04/28/2019 [facility] <pending> Therapy Evaluate And Treat Laboratory test 04/07/2019 [facility] Cytology SEE RESULT [address] [place] [address] [phone] CFM Urinalysis 03/18/2019 [facility] Urine Specific >1.030 ( )- - [place] Ua PH Test Strip 6.0 Ua WBC neg Ua Protein 100 Urine Glucose QL neg Urine Ketones QL Test Strip 15 Urine Bilirubin TTL QL T-Strip small Urine Urobilinogen QN TS 0.2 Urine Nitrite QL TS neg Ua Occult Blood trace Laboratory test 03/18/2019 [facility] Gardnerella/Yeast: SEE RESULT [address] [place] [address] [phone] GC/Chlamydia 03/18/2019 [facility] GCCHL Disclaimer (SEE NOTE) 3 Amplified Rna [address] [place] [address] [phone] Chlamydia trachomatis Ivone Negative Negative Neisseria gonorrhoeae (GC) Ivone Negative Negative Laboratory test 03/18/2019 [facility] Culture Genital SEE RESULT [address] & [place] [address] [phone] Laboratory test 03/18/2019 [facility] CF Urine, negative finding ( )- - Urine Culture And 12/16/2018 [facility] Urine Culture SEE RESULT [address] [place] [address] [phone] CFM Urinalysis 12/16/2018 [facility] Urine Specific 1.015 ( )- - [place] Ua PH Test Strip 6.5 Ua Color <pending> Ua Appearance <pending> Ua WBC large Ua Protein trace Urine Glucose QL neg Urine Ketones QL Test Strip neg Urine Bilirubin TTL QL T-Strip neg Urine Urobilinogen QN TS 0.2 Urine Nitrite QL TS neg Ua Occult Blood trace 1 SEE RESULT BELOW Name: ECHO WESLEY : [address]: Jonatan Melendrez DO Acct: [id number] Unit: [id number] AGE: 28 Location: [facility] Re04/07/19 SEX: F Status: REG REF SPEC: [id number] UZMA: 04/07/19-[address] [facility] [address]: Jonatan Melendrez DO REQ: [id number] RECD: 04/07/19-0485 STATUS: HOLLIE WAGONER DR: Yumiko Calhoun MD _ ORDERED: TP IMAGE ANALYS COMMENTS: [id number] FINAL DIAGNOSIS Negative for Intraepithelial lesion or [...] unknown: 2014 Signed by and Reported on: EmmanuelANNIE Israel (ASCP) 1538 This Pap test was evaluated with the assistance of the Scorista.ruPrep Test Imaging System. Due to cytologic findings at the foaming machine operator microscope, comprehensive manual rescreening by a Quality Assurance Supervisor Chassis may be required. The Pap Smear is [...] years. END OF REPORT DEPARTMENT OF PATHOLOGY, [address] [place] [address] Amish Castelan M.D. Director [facility] # [id number] 2 SEE RESULT BELOW Name: HERI WESLEY : [address]: Yumiko Calhoun MD Acct: [id number] Unit: [id number] AGE: 28 Location: [facility] Re03/18/19 SEX: F Status: REG REF SPEC: [id number] UZMA: 03/18/19-[address] [facility] [address]: Yumiko Calhoun MD REQ: [id number] RECD: 03/18/19 STATUS: RES _ SOURCE: VAGINAL SPDESC: ORDERED: Genital Culture, Jazmine,Yeast DNA, Trich DNA COMMENTS: [id number] Would you like to order Trichomonas Vaginalis [...] CONTINUED ON NEXT PAGE DEPARTMENT OF PATHOLOGY, [address] [place] [address] Amish Castelan M.D. Director [facility] # [id number] Patient: DALTONMICHAELYENNI [id number] (Continued) Specimen: [id number] Collected: 03/18/19 Received: 03/18/19-1730 (Continued) Procedure Result Reported Site Gardnerella/Yeast: Vaginal DNA Final (continued) 03/19/19- 1326 Trichomonas: Vaginal DNA Probe Final 03/19/19- 1326 ML Organism 1 Negative Trichomonas The presence or absence of T. vaginalis cannot be used as a test for therapeutic success or failure. * ML - Main Lab . END OF REPORT DEPARTMENT OF PATHOLOGY, [address] [place] [address] Amish Castelan M.D. Director [facility] # [id number] 3 As with all diagnostic procedures, the laboratory results obtained should be used in conjunction with other clinical information available to the physician, including confirmation by another method, as applicable. 4 SEE RESULT BELOW Name: HERI WESLEY : [address]: Yumiko Calhoun MD Acct: [id number] Unit: [id number] AGE: 28 Location: [facility] Re03/18/19 SEX: F Status: REG REF SPEC: [id number] UZMA: 03/18/19-[address] [facility] [address]: Yumiko Calhoun MD REQ: [id number] RECD: 03/18/19 STATUS: COMP _ SOURCE: VAGINAL SPDESC: ORDERED: Genital Culture, Jazmine,Yeast DNA, Trich DNA COMMENTS: [id number] Would you like to order Trichomonas Vaginalis [...] resistant strains have not been recognized. (CLSI R158-N85;p.66) Positive isolates will be saved for one week. Please call the Microbiology Laboratory if further susceptibility testing is needed. Gardnerella/Yeast: Vaginal DNA Final 03/19/19- 1327 ML Organism 1 POSITIVE DEEPALI Organism 2 POSITIVE GARDNERELLA CONTINUED ON NEXT PAGE DEPARTMENT OF PATHOLOGY, [address] [place] [address] Amish Castelan M.D. Director [facility] # [id number] Patient: HERI WESLEY [id number] (Continued) Specimen: [id number] Collected: 03/18/19-1555 Received: 03/18/19 (Continued) Procedure Result Reported Site Gardnerella/Yeast: Vaginal DNA Final (continued) 03/19/19- 1323 The presence of G. vaginalis, although suggestive, [...] failure. Trichomonas: Vaginal DNA Probe Final 03/19/19- 1327 ML Organism 1 Negative Trichomonas The presence or absence of T. vaginalis cannot be used as a test for therapeutic success or failure. * ML - Main Lab . END OF REPORT DEPARTMENT OF PATHOLOGY, [address] [place] [address] Amish Castelan M.D. Director [facility] # [id number] 5 SEE RESULT BELOW Name: HERI WESLEY : [address]: Tess Chandler NP Acct: [id number] Unit: [id number] AGE: 27 Location: [facility] Re12/16/18 SEX: F Status: REG REF SPEC: [id number] UZMA: 12/16/[address]: Tess Chandler NP REQ: [id number] RECD: 12/16/18 STATUS: COMP _ SOURCE: URINE SPDESC: ORDERED: Urine Culture COMMENTS: [id number] Urine Source: Random Procedure Result Reported Site Urine Culture Final 12/17/18- 1804 ML Organism 1 STAPHYLOCOCCUS SAPROPHYTICUS [place] Count >100,000 (Many) CFU/ML Routine sensitivity testing of urine isolates of S. saprophyticus is not advised, because infections respond to concentrations achieved in urine of antimicrobial agents commonly used to treat acute, uncomplicated urinary tract infections (e.g. nitrofurantoin, trimethoprim+/- sulfamethoxazole, or a fluoroquinolone). [facility] March 2001 * - Main Lab . END OF REPORT DEPARTMENT OF PATHOLOGY, [address] [place] [address] Amish Castelan M.D. Director [facility] # [id number] Procedures Date Code Description Status 04/28/2019 43259 Brief Emotional/Behav Assessment W/ Scoring Doc Per Completed [facility] 01/11/2019 57658 Brief Emotional/Behav Assessment W/ Scoring Doc Per Completed [facility] Medical Devices Description No Information Available Encounters Type Date Location Provider Dx Diagnosis Office Visit 04/28/2019 1:15p [facility] Jude Calhoun MD M54.5 Low back pain J45.909 Unspecified asthma, uncomplicated F31.9 Bipolar disorder, unspecified G47.00 Insomnia, unspecified Office Visit 03/18/2019 3:15p [facility] Jude Calhoun MD R11.0 Nausea N89.8 Other specified noninflammatory disorders of vagina Office Visit 01/27/2019 9:45a RO[facility] Marquez M54.5 Low back pain F31.9 Bipolar disorder, unspecified Office Visit 01/11/2019 10:00a [facility] Jude Calhoun MD F31.9 Bipolar disorder, unspecified J45.909 Unspecified asthma, uncomplicated Z13.31 Encounter for screening for depression Office Visit 12/16/2018 2:15p [facility] ROBSON Genao N39.0 Urinary tract infection, site not specified R35.0 Frequency of micturition Assessments Date Code Description Provider 04/28/2019 M54.5 Low back pain Yumiko Calhoun MD 04/28/2019 J45.909 Unspecified asthma, uncomplicated Yumiko Calhoun MD 04/28/2019 F31.9 Bipolar disorder, unspecified Yumiko Calhoun MD 04/28/2019 G47.00 Insomnia, unspecified Yumiko Calhoun MD 03/18/2019 R11.0 Nausea Yumiko [...] Encounter for immunization Nurse Plan of Treatment 04/28/2019 - Yumiko Calhoun, MDM54.5 Low back painJ45.909 Unspecified asthma, uncomplicatedNew Medication:Nebulizer - to be used every 4-6 hours with albuterol as needed for llxbpecuP48.9 Bipolar disorder, unspecifiedNew Medication:Risperidone 3 mg - take 1 tablet by mouth each bsgqfY47.00 Insomnia, unspecified Functional Status Description No Information Available Mental Status Description No Information Available Referrals Description No Information Available
--- OUTSIDE RECORDS SUMMARY | 2019-05-14 08:46 | XMS REPORT | Continuity of Care Document ---
:1990 External Reference #:[id number] Author Name Yumiko Calhoun MD (transmitted by agent of provider Renuka Eric) Address [address] [place] [address] Problems Active Problems Provider Date Thalassemia Onset: [...] ER take 1 tablet by 60tabs ROBSON Mcdonouhg 2018 - mouth at bedtime 02/15/2019 150mg Tablets ER 24HR for 3 days then increase to 2 tablets by mouth at bedtime Symbicort take 2 puffs by 13.8gm Yumiko Unique, 01/11/2019 - 80-4.5mcg/Act mouth in the MD [...] CPT Code Status Date Vaccine Lot # [id number] Given 12/08/2018 Flu < 65 years [id number] Vital Signs Date Vital Result Comment 04/28/2019 [...] Evaluate And Treat Laboratory test 04/07/2019 [facility] Cytology SEE RESULT [address] [place] [address] [phone] CFM Urinalysis 03/18/2019 [facility] Urine Specific >1.030 ( )- - [place] Ua PH Test Strip 6.0 Ua WBC neg Ua Protein 100 Urine Glucose QL neg Urine Ketones QL Test Strip 15 Urine Bilirubin TTL QL T-Strip small Urine Urobilinogen QN TS 0.2 Urine Nitrite QL TS neg Ua Occult Blood trace Laboratory test 03/18/2019 [facility] Gardnerella/Yeast: SEE RESULT [address] Vaginal Dna BELOW [place], [place] [address] [phone] GC/Chlamydia 03/18/2019 [facility] GCCHL Disclaimer (SEE NOTE) 3 Amplified Rna [address] [place] [address] [phone] Chlamydia trachomatis Ivone Negative Negative Neisseria gonorrhoeae (GC) Ivone Negative Negative Laboratory test 03/18/2019 [facility] Culture Genital SEE RESULT [address] & [place] [address] [phone] Laboratory test 03/18/2019 [facility] CFM Urine, negative finding ( )- - Urine Culture And 12/16/2018 [facility] Urine Culture SEE RESULT [address] [place] [address] [phone] CFM Urinalysis 12/16/2018 [facility] Urine Specific 1.015 ( )- - [facility] Ua PH Test Strip 6.5 Ua Color <pending> Ua Appearance <pending> Ua WBC large Ua Protein trace Urine Glucose QL neg Urine Ketones QL Test Strip neg Urine Bilirubin TTL QL T-Strip neg Urine Urobilinogen QN TS 0.2 Urine Nitrite QL TS neg Ua Occult Blood trace 1 SEE RESULT BELOW Name: ECHO WESLEY : [address]: Jonatan Melendrez DO Acct: [id number] Unit: [id number] AGE: 28 Location: [facility] Re04/07/19 SEX: F Status: REG REF SPEC: [id number] UZMA: 04/07/19-1119 [facility] [address]: Jonatan Melendrez DO REQ: [id number] RECD: 04/07/196121 STATUS: HOLLIE WAGONER DR: Yumiko Calhoun MD _ ORDERED: TP IMAGE ANALYS COMMENTS: [id number] FINAL DIAGNOSIS Negative for Intraepithelial lesion or [...] was evaluated with the assistance of the ThinPrep Test Imaging System. Due to cytologic findings at the aerial planting and cultivation manager microscope, comprehensive manual rescreening by a [employer] may be required. The Pap Smear is [...] years. END OF REPORT DEPARTMENT OF PATHOLOGY, [address] [place] [address] Amish Castelan M.D. Director [facility] # [id number] 2 SEE RESULT BELOW Name: HERI WESLEY : [address]: Yumiko Calhoun MD Acct: [id number] Unit: [id number] AGE: 28 Location: [facility] Re03/18/19 SEX: F Status: REG REF SPEC: [id number] UZMA: 03/18/19-1555 [facility] DR: Yumiko Calhoun MD REQ: [id number] RECD: 03/18/19 STATUS: RES _ [facility] ORDERED: Genital Culture, Jazmine,Yeast DNA, Trich DNA COMMENTS: [id number] Would you like to order Trichomonas Vaginalis [...] CONTINUED ON NEXT PAGE DEPARTMENT OF PATHOLOGY, [address] [place] [address] Amish Castelan M.D. Director [facility] # [id number] Patient: HERI WESLEY [id number] (Continued) Specimen: [id number] Collected: 03/18/19 Received: 03/18/19-1730 (Continued) Procedure Result Reported Site Gardnerella/Yeast: Vaginal DNA Final (continued) 03/19/19- 1326 Trichomonas: Vaginal DNA Probe Final 03/19/19- 1326 ML Organism 1 Negative Trichomonas The presence or absence of T. vaginalis cannot be used as a test for therapeutic success or failure. * ML - Main Lab . END OF REPORT DEPARTMENT OF PATHOLOGY, [address] [place] [address] Amish Castelan M.D. Director [facility] # [id number] 3 As with all diagnostic procedures, the laboratory results obtained should be used in conjunction with other clinical information available to the physician, including confirmation by another method, as applicable. 4 SEE RESULT BELOW Name: HERI WESLEY : [address]: Yumiko Calhoun MD Acct: [id number] Unit: [id number] AGE: 28 Location: [facility] Re03/18/19 SEX: F Status: REG REF SPEC: [id number] UZMA: 03/18/19-1555 [facility] DR: Yumiko Calhoun MD REQ: [id number] RECD: 03/18/19291 STATUS: COMP _ SOURCE: VAGINAL SPDESC: ORDERED: Genital Culture, Jazmine,Yeast DNA, Trich DNA COMMENTS: [id number] Would you like to order Trichomonas Vaginalis [...] resistant strains have not been recognized. (CLSI G391-P65;p.66) Positive isolates will be saved for one week. Please call the Microbiology Laboratory if further susceptibility testing is needed. Gardnerella/Yeast: Vaginal DNA Final 03/19/19- 1327 ML Organism 1 POSITIVE DEEPALI Organism 2 POSITIVE GARDNERELLA CONTINUED ON NEXT PAGE DEPARTMENT OF PATHOLOGY, [address], [place], [place] [address] Amish Castelan M.D. Director [facility] # [id number] Patient: HERI WESLEY [id number] (Continued) Specimen: [id number] Collected: 03/18/19-1555 Received: 03/18/19 (Continued) Procedure Result Reported Site Gardnerella/Yeast: Vaginal DNA Final (continued) 03/19/19- 1322 The presence of G. vaginalis, although suggestive, [...] test for therapeutic success or failure. * - [facility] . END OF REPORT DEPARTMENT OF PATHOLOGY, [address] [place] [address] Amish Castelan M.D. Director [facility] # [id number] 5 SEE RESULT BELOW Name: HERI WESLEY : [address]: Tess Chandler NP Acct: [id number] Unit: [id number] AGE: 27 Location: [facility] Re12/16/18 SEX: F Status: REG REF SPEC: [id number] UZMA: 12/16/[address]: Tess Chandler NP REQ: [id number] RECD: 12/16/18 STATUS: COMP _ SOURCE: URINE SPDESC: ORDERED: Urine Culture COMMENTS: [id number] Urine Source: Random Procedure Result Reported Site Urine Culture Final 12/17/18- 1804 ML Organism 1 STAPHYLOCOCCUS SAPROPHYTICUS [place] Count >100,000 (Many) CFU/ML Routine sensitivity testing of urine isolates of S. saprophyticus is not advised, because infections respond to concentrations achieved in urine of antimicrobial agents commonly used to treat acute, uncomplicated urinary tract infections (e.g. nitrofurantoin, trimethoprim+/- sulfamethoxazole, or a fluoroquinolone). [facility] March 2001 * - [facility] . END OF REPORT DEPARTMENT OF PATHOLOGY, [address] [place] [address] Amish Castelan M.D. Director [facility] # [id number] Procedures Date Code Description Status 04/28/2019 16503 Brief Emotional/Behav Assessment W/ Scoring Doc Per Completed [facility] 01/11/2019 22617 Brief Emotional/Behav Assessment W/ Scoring Doc Per [...] micturition Assessments Date Code Description Provider 04/28/2019 Shadia.Theron Low back pain Yumiko Calhoun MD 04/28/2019 J45.909 Unspecified asthma, uncomplicated Yumiko Calhoun MD 04/28/2019 F31.9 Bipolar disorder, unspecified Yumiko Calhoun MD 04/28/2019 G47.00 Insomnia, unspecified Yumiko Calhoun MD 04/28/2019 Z13.31 Encounter for screening for depression Yumiko Calhoun MD 03/18/2019 R11.0 Nausea Yumiko Calhoun MD 03/18/2019 N89.8 Other specified noninflammatory disorders of Yumiko Calhoun MD [facility] 01/27/2019 M54.5 Low back pain ROBSON Mcdonough [...] 4-6 hours with albuterol as needed for ectmuhmnQ97.9 Bipolar disorder, unspecifiedNew Medication:Risperidone 3 mg - take 1 tablet by mouth each zokfcJ11.00 Insomnia, lruawnkrndkS61.31 Encounter for screening for depression Functional Status Description No Information Available Mental Status Description No Information Available Referrals Description No Information Available
--- OUTSIDE RECORDS SUMMARY | 2019-05-14 08:46 | XMS REPORT | Continuity of Care Document ---
:1990 External Reference #:[id number] Author Name Yumiko Calhoun MD Address [address] [facility] [place] [address] Problems Active Problems Provider Date Thalassemia Onset: 09/24/2018 Asthma Onset: 08/19/2018 Bipolar I disorder Onset: 08/19/2018 Backache Onset: 08/19/2018 Seasonal allergy Onset: 08/19/2018 Social History Type Date Description Comments Sex Female Tobacco Use Start: Unknown Patient has never smoked Smoking Status Reviewed: 03/18/19 Patient has never smoked Allergies, Adverse Reactions, Alerts Active Allergies Reaction Severity Comments Date Latuda No Reaction Indicated 11/13/2018 Tramadol Hydrochloride Nausea, vomiting and diarrhea Moderate 11/13/2018 Medications Active Medications SIG Qnty Indications Ordering Date Provider Clindamycin use 1 applicator 80gm N89.8 Yumiko Calhoun, 03/18/2019 Phosphate vaginally daily for 2% Cream 7 days Ventolin HFA 2 every 4 hours 1units Tess Chandler, [facility] 08/18/2018 inhalation 108(90Base) mcg/Act Aerosol History Medications Lidocaine Pain Relief 1 patch to lower 5units M54.5 Tess Chandler, 2018 - 4% back every 12 [facility] 02/05/2019 Patches hours- off 12 hours Quetiapine Fumarate ER take 1 tablet by 60tabs Tess Chandler 01/11/2019 - 150mg mouth at bedtime SUPPLY SPECIALIST 02/15/2019 Tablets ER 24HR for 3 days then increase to 2 tablets by mouth at bedtime Symbicort take 2 puffs by 13.8gm Yumiko 01/11/2019 - 80-4.5mcg/Act mouth in the MD Unique 01/25/2019 Aerosol moring and in the evening Ciprofloxacin HCL 1 tab by mouth 14tabs Tess Chandler 12/18/2018 - 500mg twice a day SUPPLY SPECIALIST 01/11/2019 Tablets Sulfamethoxazole/Trimeth 1 tab by mouth 6tabs N39.0 Tess Chandler, 2018 - oprim DS twice a day SUPPLY SPECIALIST 01/11/2019 800-160mg Tablets Phenazopyridine HCL 1 tab three times 6tabs N39.0 Tess Chandler, 12/16/2018 - 200mg a day SUPPLY SPECIALIST 01/11/2019 Tablets Immunizations CPT Code Status Date Vaccine Lot # [id number] Given 12/08/2018 Flu < 65 years [id number] Vital Signs Date Vital Result Comment 03/18/2019 3:10pm BP Systolic 122 mmHg BP Diastolic 76 mmHg Weight 166.00 lb Heart Rate 68 /min Body Temperature 98.7 F O2 % BldC Oximetry 99 % 01/27/2019 9:27am BP Systolic 120 mmHg BP Diastolic 72 mmHg Weight 176.00 lb Heart Rate 79 /min Body Temperature 96.3 F O2 % BldC Oximetry 99 % Results Test Acquired Date Facility Test Result H/L Range Note Laboratory test 04/07/2019 [facility] Cytology SEE RESULT [address] [place] [address] [phone] CFM Urinalysis 03/18/2019 [facility] Urine Specific >1.030 ( )- - [place] Ua PH Test Strip 6.0 Ua WBC neg Ua Protein 100 Urine Glucose QL neg Urine Ketones QL Test Strip 15 Urine Bilirubin TTL QL T-Strip small Urine Urobilinogen QN TS 0.2 Urine Nitrite QL TS neg Ua Occult Blood trace Laboratory test 03/18/2019 [facility] Gardnerella/Yeast: SEE RESULT [address] Vaginal Dna BELOW [place], [place] [id number] [phone] GC/Chlamydia 03/18/2019 [facility] GCCHL Disclaimer (SEE NOTE) 3 Amplified Rna [address] [place], [place] [id number] [phone] Chlamydia trachomatis Ivone Negative Negative Neisseria gonorrhoeae (GC) Ivone Negative Negative Laboratory test 03/18/2019 [facility] Culture Genital SEE RESULT [address] & [place] [address] [phone] Laboratory test 03/18/2019 [facility] CFM Urine, negative finding ( )- - Urine Culture And 12/16/2018 [facility] Urine Culture SEE RESULT [address] [place] [address] [phone] CFM Urinalysis 12/16/2018 [facility] Urine Specific 1.015 ( )- - [place] Ua PH Test Strip 6.5 Ua Color <pending> Ua Appearance <pending> Ua WBC large Ua Protein trace Urine Glucose QL neg Urine Ketones QL Test Strip neg Urine Bilirubin TTL QL T-Strip neg Urine Urobilinogen QN TS 0.2 Urine Nitrite QL TS neg Ua Occult Blood trace 1 SEE RESULT BELOW Name: ECHO WESLEY : [address]: Jonatan Melendrez DO Acct: [id number] Unit: [id number] AGE: 28 Location: [facility] Re04/07/19 SEX: F Status: REG REF SPEC: [id number] UZMA: 04/07/19-[address] [facility] [address]: Jonatan Melendrez DO REQ: [id number] RECD: 04/07/19-1605 STATUS: HOLLIE WAGONER DR: Yumiko Calhoun MD _ ORDERED: TP IMAGE ANALYS COMMENTS: [id number] FINAL DIAGNOSIS Negative for Intraepithelial lesion or [...] was evaluated with the assistance of the [employer] Test Imaging System. Due to cytologic findings at the parcel post clerk microscope, comprehensive manual rescreening by a Territory Account Executive may be required. The Pap Smear is [...] years. END OF REPORT DEPARTMENT OF PATHOLOGY, [address] [place] [address] Amish Castelan M.D. Director [facility] # [id number] 2 SEE RESULT BELOW Name: HERI WESLEY : [address]: Yumiko Calhoun MD Acct: [id number] Unit: [id number] AGE: 28 Location: [facility] Re03/18/19 SEX: F Status: REG REF SPEC: [id number] UZMA: 03/18/19-[address] [facility] [address]: Yumiko Calhoun MD REQ: [id number] RECD: 03/18/19 STATUS: RES _ SOURCE: VAGINAL SPDESC: ORDERED: Genital Culture, Jazmine,Yeast DNA, Trich DNA COMMENTS: [id number] Would you like to order Trichomonas Vaginalis [...] CONTINUED ON NEXT PAGE DEPARTMENT OF PATHOLOGY, [address] [place] [address] Amish Castelan M.D. Director [facility] # [id number] Patient: HERI WESLEY [id number] (Continued) Specimen: [id number] Collected: 03/18/19 Received: 03/18/19 (Continued) Procedure Result Reported Site Gardnerella/Yeast: Vaginal DNA Final (continued) 03/19/19- 1326 Trichomonas: Vaginal DNA Probe Final 03/19/19- 1326 ML Organism 1 Negative Trichomonas The presence or absence of T. vaginalis cannot be used as a test for therapeutic success or failure. * ML - Main Lab . END OF REPORT DEPARTMENT OF PATHOLOGY, [address] [place] [address] Amish Castelan M.D. Director [facility] # [id number] 3 As with all diagnostic procedures, the laboratory results obtained should be used in conjunction with other clinical information available to the physician, including confirmation by another method, as applicable. 4 SEE RESULT BELOW Name: HERI WESLEY : [address]: Yumiko Calhoun MD Acct: [id number] Unit: [id number] AGE: 28 Location: [facility] Re03/18/19 SEX: F Status: REG REF SPEC: [id number] UZMA: 03/18/19-[address] [facility] [address]: Yumiko Calhoun MD REQ: [id number] RECD: 03/18/198783 STATUS: COMP _ SOURCE: VAGINAL SPDESC: ORDERED: Genital Culture, Jazmine,Yeast DNA, Trich DNA COMMENTS: [id number] Would you like to order Trichomonas Vaginalis [...] resistant strains have not been recognized. (CLSI O744-P90;p.66) Positive isolates will be saved for one week. Please call the Microbiology Laboratory if further susceptibility testing is needed. Gardnerella/Yeast: Vaginal DNA Final 03/19/19- 1327 ML Organism 1 POSITIVE DEEPALI Organism 2 POSITIVE GARDNERELLA CONTINUED ON NEXT PAGE DEPARTMENT OF PATHOLOGY, [address] [place] [address] Amish Castelan M.D. Director [facility] # [id number] Patient: HERI WESLEY [id number] (Continued) Specimen: [id number] Collected: 03/18/19 Received: 03/18/19 (Continued) Procedure Result Reported Site Gardnerella/Yeast: Vaginal DNA Final (continued) 03/19/19- 1327 The presence of G. vaginalis, although suggestive, [...] . END OF REPORT DEPARTMENT OF PATHOLOGY, [address] [place] [address] Amish Castelan M.D. Director [facility] # [id number] 5 SEE RESULT BELOW Name: HERI WESLEY : [address]: Tess Chandler NP Acct: [id number] Unit: [id number] AGE: 27 Location: [facility] Re12/16/18 SEX: F Status: REG REF SPEC: [id number] UZMA: 12/16/[address] [facility] [address]: Tess Chandler NP REQ: [id number] RECD: 12/16/18 STATUS: COMP _ SOURCE: URINE [facility]: ORDERED: Urine Culture COMMENTS: [id number] Urine Source: Random Procedure Result Reported Site Urine Culture Final 12/17/18- 1804 ML Organism 1 STAPHYLOCOCCUS SAPROPHYTICUS [place] Count >100,000 (Many) CFU/ML Routine sensitivity testing of urine isolates of S. saprophyticus is not advised, because infections respond to concentrations achieved in urine of antimicrobial agents commonly used to treat acute, uncomplicated urinary tract infections (e.g. nitrofurantoin, trimethoprim+/- sulfamethoxazole, or a fluoroquinolone). NCC March 2001 * ML - Main Lab . END OF REPORT DEPARTMENT OF PATHOLOGY, [address] [place] [address] Amish Castelan M.D. Director [facility] # [id number] Procedures Date Code Description Status 01/11/2019 81342 Brief Emotional/Behav Assessment W/ Scoring Doc Per Completed [facility] [employer] Devices Description No Information Available Encounters Type Date Location Provider Dx Diagnosis Office Visit 03/18/2019 3:15p Akbar Calhoun MD R11.0 Nausea N89.8 Other specified noninflammatory disorders of vagina Office Visit 01/27/2019 9:45a [facility] Genao M54.5 Low back pain F31.9 Bipolar disorder, unspecified Office Visit 01/11/2019 10:00a [facility] Jude Calhoun MD F31.9 Bipolar disorder, unspecified J45.909 Unspecified asthma, uncomplicated Z13.31 Encounter for screening for depression Office Visit 12/16/2018 2:15p [facility] Genao N39.0 Urinary tract infection, site not specified R35.0 Frequency of micturition Assessments Date Code Description Provider 03/18/2019 R11.0 Nausea Yumiko Calhoun MD 03/18/2019 N89.8 Other specified noninflammatory disorders of Yumiko Calhoun MD vagina 01/27/2019 M54.5 Low back pain RO[facility]ON Mcdonough 01/27/2019 F31.9 Bipolar disorder, unspecified [facility] Mcdonough 01/11/2019 F31.9 Bipolar disorder, unspecified Ymuiko Calhoun MD 01/11/2019 J45.909 Unspecified asthma, uncomplicated Yumiko Calhoun MD 01/11/2019 Z13.31 Encounter for screening for depression Yumiko Calhoun MD 12/16/2018 N39.0 Urinary tract infection, site not specified ROBSON Mcdonough 12/16/2018 R35.0 Frequency of micturition ROBSON Mcdonough 12/08/2018 Z23 Encounter for immunization Nurse Plan of Treatment 03/18/2019 - Yumiko Calhoun MDR11.0 FpbfwoI90.8 Other specified noninflammatory disorders of vaginaNew Medication:Clindamycin Phosphate 2 % - use 1 applicator vaginally daily for 7 days Functional Status Description No Information Available Mental Status Description No Information Available Referrals Description No Information Available
--- OUTSIDE RECORDS SUMMARY | 2019-05-14 08:47 | XMS REPORT | Continuity of Care Document ---
:1990 External Reference #:[id number] Author Name Yumiko Calhoun MD Address [address] [facility] [place] [address] Problems Active Problems Provider Date Thalassemia Onset: [...] 2 every 4 hours 1units Tess Chandler, [facility] 08/18/2018 inhalation 108(90Base) mcg/Act Aerosol History Medications Lidocaine Pain Relief 1 patch to lower 5units M54.5 Tess Chandler, 2018 - 4% back every 12 [facility] 02/05/2019 Patches hours- off 12 hours Quetiapine Fumarate ER take 1 tablet by 60tabs Tess Chandler 01/11/2019 - 150mg mouth at bedtime 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/15/2019 Tablets ER 24HR for 3 days then increase to 2 tablets by mouth at bedtime Symbicort take 2 puffs by 13.8gm Yumiko 01/11/2019 - 80-4.5mcg/Act mouth in the MD Unique 01/25/2019 Aerosol moring and in the evening Ciprofloxacin HCL 1 tab by mouth 14tabs Tess Chandler 12/18/2018 - 500mg twice a day [employer]ETAIL MACHINE OPERATOR 01/11/2019 Tablets Sulfamethoxazole/Trimeth 1 tab by mouth 6tabs N39.0 Tess Chandler, 2018 - oprim DS twice a day DOVETAIL MACHINE OPERATOR 01/11/2019 800-160mg Tablets Phenazopyridine HCL 1 tab three times 6tabs N39.0 Tess Chandler, 12/16/2018 - 200mg a day DOVETAIL MACHINE OPERATOR 01/11/2019 Tablets Immunizations CPT Code Status Date Vaccine Lot # [id number] Given 12/08/2018 Flu < 65 years [id number] Vital Signs Date Vital Result Comment 03/18/2019 [...] Result H/L Range Note Laboratory test 04/07/2019 [facility] Cytology SEE RESULT [address] [place] [address] [phone] CFM Urinalysis 03/18/2019 [facility] Urine Specific >1.030 ( )- - [place] Ua PH Test Strip 6.0 Ua WBC neg Ua Protein 100 Urine Glucose QL neg Urine Ketones QL Test Strip 15 Urine Bilirubin TTL QL T-Strip small Urine Urobilinogen QN TS 0.2 Urine Nitrite QL TS neg Ua Occult Blood trace Laboratory test 03/18/2019 [facility] Gardnerella/Yeast: SEE RESULT [address] Vaginal Dna BELOW [place], [place] [id number] [phone] GC/Chlamydia 03/18/2019 [facility] GCCHL Disclaimer (SEE NOTE) 3 Amplified Rna [address] [place], [place] [id number] [phone] Chlamydia trachomatis Ivone Negative Negative Neisseria gonorrhoeae (GC) Ivone Negative Negative Laboratory test 03/18/2019 [facility] Culture Genital SEE RESULT [address] & [place] [address] [phone] Laboratory test 03/18/2019 [facility] CFM Urine, negative finding ( )- - Urine Culture And 12/16/2018 [facility] Urine Culture SEE RESULT [address] [place] [address] [phone] CFM Urinalysis 12/16/2018 [facility] Urine Specific 1.015 ( )- - [place] Ua PH Test Strip 6.5 Ua Color <pending> Ua Appearance <pending> Ua WBC large Ua Protein trace Urine Glucose QL neg Urine Ketones QL Test Strip neg Urine Bilirubin TTL QL T-Strip neg Urine Urobilinogen QN TS 0.2 Urine Nitrite QL TS neg Ua Occult Blood trace 1 SEE RESULT BELOW Name: ECHO WESLEY : [address]: Jonatan Melendrez DO Acct: [id number] Unit: [id number] AGE: 28 Location: [facility] Re04/07/19 SEX: F Status: REG REF SPEC: [id number] UZMA: 04/07/19-1119 [facility] [address]: Jonatan Melendrez DO REQ: [id number] RECD: 04/07/19-1605 STATUS: HOLLIE WAGONER DR: Yumiko Calhoun MD _ ORDERED: TP IMAGE ANALYS COMMENTS: [id number] FINAL DIAGNOSIS Negative for Intraepithelial lesion or [...] was evaluated with the assistance of the [employer] Test Imaging System. Due to cytologic findings at the bead stringer microscope, comprehensive manual rescreening by a Hammerer may be required. The Pap Smear is [...] years. END OF REPORT DEPARTMENT OF PATHOLOGY, [address] [place] [address] Amish Castelan M.D. Director [facility] # [id number] 2 SEE RESULT BELOW Name: HERI WESLEY : [address]: Yumiko Calhoun MD Acct: [id number] Unit: [id number] AGE: 28 Location: [facility] Re03/18/19 SEX: F Status: REG REF SPEC: [id number] UZMA: 03/18/19-1556 [facility] [address]: Yumiko Calhoun MD REQ: [id number] RECD: 03/18/19 STATUS: RES _ SOURCE: VAGINAL SPDESC: ORDERED: Genital Culture, Jazmine,Yeast DNA, Trich DNA COMMENTS: [id number] Would you like to order Trichomonas Vaginalis [...] CONTINUED ON NEXT PAGE DEPARTMENT OF PATHOLOGY, [address] [place] [address] Amish Castelan M.D. Director [facility] # [id number] Patient: HERI WESLEY [id number] (Continued) Specimen: [id number] Collected: 03/18/19 Received: 03/18/19 (Continued) Procedure Result Reported Site Gardnerella/Yeast: Vaginal DNA Final (continued) 03/19/19- 1326 Trichomonas: Vaginal DNA Probe Final 03/19/19- 1326 ML Organism 1 Negative Trichomonas The presence or absence of T. vaginalis cannot be used as a test for therapeutic success or failure. * ML - Main Lab . END OF REPORT DEPARTMENT OF PATHOLOGY, [address] [place] [address] Amish Castelan M.D. Director [facility] # [id number] 3 As with all diagnostic procedures, the laboratory results obtained should be used in conjunction with other clinical information available to the physician, including confirmation by another method, as applicable. 4 SEE RESULT BELOW Name: HERI WESLEY : [address]: Yumiko Calhoun MD Acct: [id number] Unit: [id number] AGE: 28 Location: [facility] Re03/18/19 SEX: F Status: REG REF SPEC: [id number] UZMA: 03/18/19-7[address] [facility] [address]: Yumiko Calhoun MD REQ: [id number] RECD: 03/18/198061 STATUS: COMP _ SOURCE: VAGINAL SPDESC: ORDERED: Genital Culture, Jazmine,Yeast DNA, Trich DNA COMMENTS: [id number] Would you like to order Trichomonas Vaginalis [...] resistant strains have not been recognized. (CLSI H131-C15;p.66) Positive isolates will be saved for one week. Please call the Microbiology Laboratory if further susceptibility testing is needed. Gardnerella/Yeast: Vaginal DNA Final 03/19/19- 1327 ML Organism 1 POSITIVE DEEPALI Organism 2 POSITIVE GARDNERELLA CONTINUED ON NEXT PAGE DEPARTMENT OF PATHOLOGY, [address] [place] [address] Amish Castelan M.D. Director [facility] # [id number] Patient: HERI WESLEY [id number] (Continued) Specimen: [id number] Collected: 03/18/19 Received: 03/18/19 (Continued) Procedure Result [...] for therapeutic success or failure. * - [facility] . END OF REPORT DEPARTMENT OF PATHOLOGY, [address] [place] [address] Amish Castelan M.D. Director [facility] # [id number] 5 SEE RESULT BELOW Name: HERI WESLEY : [address]: Tess Chandler NP Acct: [id number] Unit: [id number] AGE: 27 Location: [facility] Re12/16/18 SEX: F Status: REG REF SPEC: [id number] UZMA: 12/16/188 [facility] [address]: Tess Chandler NP REQ: [id number] RECD: 12/16/18 STATUS: COMP _ SOURCE: URINE [facility]: ORDERED: Urine Culture COMMENTS: [id number] Urine Source: Random Procedure Result Reported Site Urine Culture Final 12/17/18- 1804 ML Organism 1 STAPHYLOCOCCUS SAPROPHYTICUS [place] Count >100,000 (Many) CFU/ML Routine sensitivity testing of urine isolates of S. saprophyticus is not advised, because infections respond to concentrations achieved in urine of antimicrobial agents commonly used to treat acute, uncomplicated urinary tract infections (e.g. nitrofurantoin, trimethoprim+/- sulfamethoxazole, or a fluoroquinolone). NCC March 2001 * ML - Main Lab . END OF REPORT DEPARTMENT OF PATHOLOGY, [address] [place] [address] Amish Castelan M.D. Director [facility] # [id number] Procedures Date Code Description Status 01/11/2019 15542 Brief Emotional/Behav Assessment W/ Scoring Doc Per Completed [facility] [employer] Medical Devices Description No Information Available Encounters Type Date Location Provider Dx Diagnosis Office Visit 03/18/2019 3:15p Akbar Calhoun MD R11.0 Nausea N89.8 Other specified noninflammatory disorders of vagina Office Visit 01/27/2019 9:45a [facility] [place] Genao M54.5 Low back pain F31.9 Bipolar disorder, unspecified Office Visit 01/11/2019 10:00a CF Jude Calhoun MD F31.9 Bipolar disorder, unspecified J45.909 Unspecified asthma, uncomplicated Z13.31 Encounter for screening for depression Office Visit 12/16/2018 2:15p [facility] [place] Genao N39.0 Urinary tract infection, site [...] of Treatment 03/18/2019 - Yumiko Calhoun MDR11.0 OaukgsC55.8 Other specified noninflammatory disorders of vaginaNew Medication:Clindamycin Phosphate 2 % - use 1 applicator vaginally daily for 7 days Functional Status Description No Information Available Mental Status Description No Information Available Referrals Description No Information Available
--- OUTSIDE RECORDS SUMMARY | 2019-05-14 08:47 | XMS REPORT | Continuity of Care Document ---
:1990 External Reference #:[id number] Author Name Yumiko Calhoun MD Address [address] [facility] [place] [address] Problems Active Problems Provider Date Thalassemia Onset: 09/24/2018 Asthma Onset: 08/19/2018 Bipolar I disorder Onset: 08/19/2018 Backache Onset: 08/19/2018 Seasonal allergy Onset: 08/19/2018 Inactive Problems Pain in right knee Onset: 09/24/2018 Inactive: 09/24/2018 Bilateral knee pain Onset: 09/24/2018 Inactive: 09/24/2018 Low back pain Onset: 09/24/2018 Inactive: 09/24/2018 Chronic abdominal pain Onset: 09/24/2018 Inactive: 09/24/2018 Social History Type Date Description Comments Sex [...] Yumiko Calhoun, 03/18/2019 Phosphate vaginally daily for MD 2% Cream 7 days Ventolin HFA 2 every 4 hours 1units ROBSON Mcdonough 08/18/2018 inhalation 108(90Base) mcg/Act Aerosol History Medications [...] 1 tab by mouth 14tabs Tess Chandler [employer] 12/18/2018 - 500mg twice a day 01/11/2019 Tablets Sulfamethoxazole/Trimet 1 tab by mouth 6tabs N39.0 ROBSON Mcdonough 2018 - hoprim DS twice a day 01/11/2019 800-160mg Tablets Phenazopyridine HCL 1 tab three 6tabs N39.0 ROBSON Mcdonough 12/16/2018 - 200mg times a day 01/11/2019 Tablets Pantoprazole Sodium 1 daily Oral 30tabs Unknown 09/24/2018 - 20mg 01/11/[address] [place] CPT Code Status Date Vaccine Lot # [id number] Given 12/08/2018 Flu < 65 years [id number] Vital Signs Date Vital Result Comment 03/18/2019 [...] Date Facility Test Result H/L Range Note CFM Urinalysis 03/18/2019 [facility] Urine Specific >1.030 ( )- - [place] Ua PH Test Strip 6.0 Ua WBC neg Ua Protein 100 Urine Glucose QL neg Urine Ketones QL Test Strip 15 Urine Bilirubin TTL QL T-Strip small Urine Urobilinogen QN TS 0.2 Urine Nitrite QL TS neg Ua Occult Blood trace Laboratory test 03/18/2019 [facility] Gardnerella/Yeast: < pending> finding [address] [place] [address] [phone] Laboratory test 03/18/2019 [facility] Culture Genital & <pending > finding [address] [place] [address] [phone] Laboratory test 03/18/2019 [facility] CF Urine, negative finding ( )- - Urine Culture And 12/16/2018 [facility] Urine Culture SEE RESULT [address] [place], [place] [id number] [phone] CFM Urinalysis 12/16/2018 [facility] Urine Specific 1.015 ( )- - [place] Ua PH Test Strip 6.5 Ua Color <pending> Ua Appearance <pending> Ua WBC large Ua Protein trace Urine Glucose QL neg Urine Ketones QL Test Strip neg Urine Bilirubin TTL QL T-Strip neg Urine Urobilinogen QN TS 0.2 Urine Nitrite QL TS neg Ua Occult Blood trace 1 SEE RESULT BELOW Name: HERI WESLEY : [address]: Tess Chandler NP Acct: [id number] Unit: [id number] AGE: 27 Location: [facility] Re12/16/18 SEX: F Status: REG REF SPEC: [id number] UZMA: 12/16/188 [facility] DR: Tess Chandler NP REQ: [id number] RECD: 12/16/18 STATUS: COMP _ SOURCE: URINE SPDESC: ORDERED: Urine Culture COMMENTS: [id number] Urine Source: Random Procedure Result Reported Site Urine Culture Final 12/17/18- 1804 ML Organism 1 STAPHYLOCOCCUS SAPROPHYTICUS [employer] Count >100,000 (Many) CFU/ML Routine sensitivity testing of urine isolates of S. saprophyticus is not advised, because infections respond to concentrations achieved in urine of antimicrobial agents commonly used to treat acute, uncomplicated urinary tract infections (e.g. nitrofurantoin, trimethoprim+/- sulfamethoxazole, or a fluoroquinolone). NCC March 2001 * ML - Main Lab . END OF REPORT DEPARTMENT OF PATHOLOGY, [address] [place] [address] Amish Castelan M.D. Director [facility] # [id number] Procedures Date Code Description Status 01/11/2019 26216 Brief Emotional/Behav Assessment W/ Scoring Doc Per Completed Standard Inst Medical Devices Description No Information Available Encounters Type Date Location Provider Dx Diagnosis Office Visit 03/18/2019 3:15p JENNIFER Calhoun MD R11.0 Nausea N89.8 Other specified noninflammatory disorders of vagina Office Visit 01/27/2019 9:45a ROBSON Espino M54.5 Low back pain F31.9 Bipolar disorder, unspecified Office Visit 01/11/2019 10:00a CFM Jude Calhoun MD F31.9 Bipolar disorder, unspecified J45.909 Unspecified asthma, uncomplicated Z13.31 Encounter for screening for depression Office Visit 12/16/2018 2:15p CFM Main ROBSON Mcdonough N39.0 Urinary tract infection, site not specified R35.0 Frequency of micturition Assessments Date Code Description Provider 03/18/2019 R11.0 Nausea Yumiko Calhoun MD 03/18/2019 N89.8 Other specified noninflammatory disorders of Yumiko Calhoun MD vagina 01/27/2019 M54.5 Low back pain VENTURA McdonoughP 01/27/2019 F31.9 Bipolar disorder, unspecified ROBSON Mcdonough 01/11/2019 F31.9 Bipolar disorder, unspecified Yumiko Calhoun MD 01/11/2019 J45.909 Unspecified asthma, uncomplicated Yumiko Calhoun MD 01/11/2019 Z13.31 Encounter for screening for depression Yumiko Calhoun MD 12/16/2018 N39.0 Urinary tract infection, site not specified ROBSON Mcdonough 12/16/2018 R35.0 Frequency of micturition ROBSON Mcdonough 12/08/2018 Z23 Encounter for immunization Nurse Plan of Treatment 03/18/2019 - Yumiko Calhoun, MDR11.0 BtzejpL75.8 Other specified noninflammatory disorders of vaginaNew Medication:Clindamycin Phosphate 2 % - use 1 applicator vaginally daily for 7 days Functional Status Description No Information Available Mental Status Description No Information Available Referrals Description No Information Available
--- OUTSIDE RECORDS SUMMARY | 2019-05-14 08:47 | XMS REPORT | Continuity of Care Document ---
:1990 External Reference #:[id number] Author Name Yumiko Calhoun MD (transmitted by agent of provider Mirian Torres) Address [address] [place] [address] Problems Active Problems Provider Date Thalassemia Onset: [...] Symbicort take 2 puffs by 13.8gm Yumiko Cortezdeborah, 01/11/2019 - 80-4.5mcg/Act mouth in the MD [...] CPT Code Status Date Vaccine Lot # [id number] Given 12/08/2018 Flu < 65 years [id number] Vital Signs Date Vital Result Comment 03/18/2019 [...] Result H/L Range Note CFM Urinalysis 03/18/2019 [facility] Urine Specific >1.030 ( )- - [place] Ua PH Test Strip 6.0 Ua WBC neg Ua Protein 100 Urine Glucose QL neg Urine Ketones QL Test Strip 15 Urine Bilirubin TTL QL T-Strip small Urine Urobilinogen QN TS 0.2 Urine Nitrite QL TS neg Ua Occult Blood trace Laboratory test 03/18/2019 [facility] Gardnerella/Yeast: < pending> finding [address] [place] [address] [phone] Laboratory test 03/18/2019 [facility] Culture Genital & <pending > finding [address] [place] [address] [phone] Laboratory test 03/18/2019 [facility] CFM Urine, negative finding ( )- - Urine Culture And 12/16/2018 [facility] Urine Culture SEE RESULT [address] [place] [address] [phone] CF Urinalysis 12/16/2018 [facility] Urine Specific 1.015 ( )- - [place] Ua PH Test Strip 6.5 Ua Color <pending> Ua Appearance <pending> Ua WBC large Ua Protein trace Urine Glucose QL neg Urine Ketones QL Test Strip neg Urine Bilirubin TTL QL T-Strip neg Urine Urobilinogen QN TS 0.2 Urine Nitrite QL TS neg Ua Occult Blood trace 1 SEE RESULT BELOW Name: HERI WESLEY : [address]: Tess Chandler NP Acct: [id number] Unit: [id number] AGE: 27 Location: [facility] Re12/16/18 SEX: F Status: REG REF SPEC: [id number] UZMA: 12/16/18 [facility] DR: Tess Chandler NP REQ: [id number] RECD: 12/16/18 STATUS: COMP _ SOURCE: URINE SPDESC: ORDERED: Urine Culture COMMENTS: [id number] Urine Source: Random Procedure Result Reported Site Urine Culture Final 12/17/18- 1804 ML Organism 1 STAPHYLOCOCCUS SAPROPHYTICUS [employer] Count >100,000 (Many) CFU/ML Routine sensitivity testing of urine isolates of S. saprophyticus is not advised, because infections respond to concentrations achieved in urine of antimicrobial agents commonly used to treat acute, uncomplicated urinary tract infections (e.g. nitrofurantoin, trimethoprim+/- sulfamethoxazole, or a fluoroquinolone). NCC March 2001 * ML - Main Lab . END OF REPORT DEPARTMENT OF PATHOLOGY, [address] [place] [address] Amish Castelan M.D. Director [facility] # [id number] Procedures Date Code Description Status 01/11/2019 21120 Brief Emotional/Behav Assessment W/ Scoring Doc Per Completed Standard Inst Medical Devices Description No Information Available Encounters Type Date Location Provider Dx Diagnosis Office Visit 03/18/2019 3:15p JENNIFER Calhoun MD R11.0 Nausea N89.8 Other specified noninflammatory disorders of vagina Office Visit 01/27/2019 9:45a ROBSON Espino M54.5 Low back pain F31.9 Bipolar disorder, unspecified Office Visit 01/11/2019 10:00a CFM Main Yumiko Calhoun MD F31.9 Bipolar disorder, unspecified J45.909 [...] of Treatment 03/18/2019 - Yumiko Calhoun, MDR11.0 NehxpsR77.8 Other specified noninflammatory disorders of vaginaNew Medication:Clindamycin Phosphate 2 % - use 1 applicator vaginally daily for 7 days Functional Status Description No Information Available Mental Status Description No Information Available Referrals Description No Information Available
[2019-05-14] MEDS ORDERED: Ketorolac INJ* 30 MG/ML 1 ML VIAL IV PUSH ONE (09:25)
[2019-05-14] MEDS ORDERED: Dexamethasone IV* 4 MG/ML 5 ML VIAL (20 MG) IVPB ONE (09:25)
--- NOTE | 2019-05-14 09:31 | ED ---
Back Pain - HPI Summary HPI Summary: 28 year old F presenting to [facility] alone complains of back pain and numbness in her lower left leg since a couple days ago. Patient states she went to Urgent Care prior for this issue for which she was given 20 mg Prednisone and Flexeril. She reports having a slight tingling sensation in the genital area, and slight constipation but no problems with urination. Patient has a history of disc degeneration, bulging discs in L4, L5, and S1, scoliosis, and asthma. She can't think of doing any activities that would prompt such back pain but has had past episodes but not to this severity. She uses marijuana but not alcohol. She has a surgical history of appendectomy, cholecystectomy, , and a laparoscopic exploratory surgery. The patient rates the pain 10/10 in severity. Symptoms aggravated by nothing. Symptoms alleviated by nothing. Medications reviewed. Allergies noted. Home Medications Medication Instructions Recorded Confirmed Type Pantoprazole TAB * [Protonix TAB*] 40 mg PO DAILY #30 tab 09/04/18 Rx - History of Current Complaint Chief Complaint: EDExtremityLower Stated Complaint: NUMBNESS IN LEFT LEG PER PT Time Seen by Provider: 05/14/19 09:11 Hx Obtained From: Patient Onset/Duration: Lasting Days, Still Present Timing: Constant Pain Intensity: 10 Pain Scale Used: 0-10 Numeric Aggravating Symptom(s): Nothing Alleviating Symptom(s): Nothing Associated Signs And Symptoms: Positive: Numbness - in lower left leg, Other - positive - back pain, tingling sensation in genital area, and slight contipation negative - dysuria - Allergies/Home Medications Allergies/Adverse Reactions: Allergies Allergy/AdvReac Type Severity Reaction Status Date / Time lurasidone [From Latuda] Allergy Insomnia Verified 05/14/19 08:39 tramadol Allergy Vomiting Verified 05/14/19 08:39 Home Medications: Home Medications Pantoprazole TAB * [Protonix TAB*] 40 mg PO DAILY #30 tab 09/04/18 [Rx] Cyclobenzaprine TAB* [Flexeril 10 MG TAB*] 10 mg PO TID PRN #12 tab 05/14/19 [Rx ] HYDROcodone/ACETAMIN 5-325 MG* [[place] 5-325 TAB*] 1 tab PO Q6H PRN #10 tab MDD 4 05/14/19 [Rx] methylPREDNISolone [Medrol Dosepak 4 MG*] 0 mg PO .SEE CHONG INSTRUCTION #1 chong [Rx] PMH/Surg Hx/FS Hx/Imm Hx Endocrine/Hematology History: Denies: Hx Anticoagulant Therapy, Hx Diabetes Cardiovascular History: Denies: Hx Cardiac Arrest, Hx Hypertension, Hx Myocardial Infarction Respiratory History: Reports: Hx Asthma - INHAILER DAILY GI History: Denies: Hx Ileostomy History: Denies: Hx Dialysis, Hx Renal Disease Musculoskeletal History: Denies: Hx Osteoporosis Sensory History: Denies: Hx Legally Blind, Hx Deafness Opthamlomology History: Denies: Hx Legally Blind Neurological History: Denies: Hx CVA Psychiatric History: Reports: Hx Anxiety, Hx Depression Denies: Hx Eating Disorder, Hx of Violent Episodes Against Others - Surgical History Surgery Procedure, Year, and Place: appendectomy, cholecystectomy, cesarian section, exploratory laparoscopic surgery - Immunization History Date of Influenza Vaccine: no Infectious Disease History: No Infectious Disease History: Denies: Traveled Outside the [place] in Last 30 Days - Family History Known Family History: Positive: Cardiac Disease, Hypertension, Diabetes, Other - HLD - Social History Alcohol Use: Rare Hx Substance Use: No Substance Use Type: Reports: None Substance Use Comment - Amount & Last Used: daily Hx Tobacco Use: No Smoking Status (MU): Never Smoked Tobacco Review of Systems Gastrointestinal: Other - slight constipation Positive: other - light tingling sensation in genital area. Negative: dysuria, hematuria Musculoskeletal: Other - back pain and numbness in lower left leg All Other Systems Reviewed And Are Negative: Yes Physical Exam - Summary Physical Exam Summary: VITAL SIGNS: Reviewed. GENERAL: Patient is a well-developed and nourished female who is lying comfortable in the stretcher. Patient is not in any acute respiratory distress. HEAD AND FACE: No signs of trauma. No ecchymosis, hematomas or skull depressions. No sinus tenderness. EYES: PERRLA, EOMI x 2, No injected conjunctiva, no nystagmus. EARS: Hearing grossly intact. Ear canals and tympanic membranes are within normal limits. MOUTH: Oropharynx within normal limits. NECK: Supple, trachea is midline, no adenopathy, no JVD, no carotid bruit, no c- spine tenderness, neck with full ROM. CHEST: Symmetric, no tenderness at palpation. LUNGS: Clear to auscultation bilaterally. No wheezing or crackles. CVS: Regular rate and rhythm, S1 and S2 present, no murmurs or gallops appreciated. ABDOMEN: Soft, non-tender. No signs of distention. No rebound, no guarding, and no masses palpated. Bowel sounds are normal. EXTREMITIES: Decreased sensation and weakness in LLE. MUSCLE: No saddle anaesthesia. BACK: lumbar spine tender NEURO: Alert and oriented x 3. No acute neurological deficits. Speech is normal and follows commands. SKIN: Dry and warm. RECTAL: rectal exam revealed good sphincter tone Triage Information Reviewed: Yes Vital Signs On Initial Exam: Initial Vitals Temp Pulse Resp BP Pulse Ox 97.2 F 73 16 140/90 98 05/14/19 08:34 05/14/19 08:34 05/14/19 08:34 05/14/19 08:34 05/14/19 08:34 Vital Signs Reviewed: Yes Procedures - Sedation Patient Received Moderate/Deep Sedation with Procedure: No Diagnostics - Vital Signs Vital Signs Temp Pulse Resp BP Pulse Ox 05/14/19 08:34 97.2 F 73 16 140/90 98 - Laboratory Result Diagrams: 05/14/19 10:12 05/14/19 10:12 Lab Statement: Any lab studies that have been ordered have been reviewed, and results considered in the medical decision making process. 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 Back Pain Course/Dx - Course Assessment/Plan: 28 year old F presenting to [facility] alone complains of back pain and numbness in her lower left leg since a couple days ago. Patient states she went to Urgent Care prior for this issue for which she was given 20 mg Prednisone and Flexeril. She reports having a slight tingling sensation in the genital area, and slight constipation but no problems with urination. Patient has a history of disc degeneration, bulging discs in L4, L5, and S1, scoliosis, and asthma.She can't think of doing any activities that would prompt such back pain but has had past episodes but not to this severity. She uses marijuana but not alcohol. She has a surgical history of appendectomy, cholecystectomy, C- section, and a laparoscopic exploratory surgery. The patient rates the pain 10/ 10 in severity. Symptoms aggravated by nothing. Symptoms alleviated by nothing. Medications reviewed. Allergies noted. Patient denies any urinary or fecal distention. Rectal exam shows normal sphincter tone. Patient has no saddle anesthesia. Bloodwork results with no significant abnormalities except for WBC 13.4, RBC 5.35, MCV 75, MCH 24, RDW 16, Absolute lymphs 6.5, Absolute monos 1.1 , BUN/creatinine Ratio 25.5, and AST 12. In the ED course the patient was given Toradol and Decadron. I ordered an MRI of the lumbar spine to rule out any acute pathology. However the patient reports that she is unable to wait since she has to pickle sorter her children and she wants to go home. Therefore I explained the benefits and risk of the MRI and the proper diagnosis and the patient declined. The patient will be discharged home with follow up with her primary care physician. She was instructed to return to the emergency department if she develops any other symptom or worsening of her current symptoms. The patient understands and agrees. - Diagnoses Provider Diagnoses: Back pain, Leg pain Discharge ED - Sign-Out/Discharge Documenting (check all that apply): Patient Departure - discharge - Discharge Plan Condition: Stable Disposition: HOME Prescriptions: Cyclobenzaprine TAB* [Flexeril 10 MG TAB*] 10 mg PO TID PRN #12 tab PRN Reason: Spasms - Back HYDROcodone/ACETAMIN 5-325 MG* [[place] 5-325 TAB*] 1 tab PO Q6H PRN #10 tab MDD 4 PRN Reason: Pain - Severe methylPREDNISolone [Medrol Dosepak 4 MG*] 0 mg PO .SEE CHONG INSTRUCTION #1 chong Patient Education Materials: Back Pain (ED), Leg Pain (ED) Print Language: CROATIAN Referrals: Yumiko Calhoun MD [Primary Care Provider] - 3 Days Additional Instructions: Please return to emergency department for any new or worsening symptoms. Please follow up with your primary care physician within 1-3 days. - Billing Disposition and Condition Condition: STABLE Disposition: Home - Attestation Statements Document Initiated by Scribe: Yes Documenting Scribe: Josh Maria Provider For Whom Scribe is Documenting (Include Credential): Dr.Walter Lambert MD Scribe Attestation: Josh Bates, scribed for Dr.Walter Lambert MD on 05/15/19 at 0722. Scribe Documentation Reviewed: Yes Provider Attestation: The documentation as recorded by the scribe, Josh Maria accurately reflects the service I personally performed and the decisions made by me, Dr.Walter Lambert MD Status of Scribe Document: Viewed
[2019-05-14 10:19] LABS: Hematocrit 40 % (35-47); Mean Corpuscular HGB Conc 33 g/dL (31-36); Mean Corpuscular Hemoglobin 24 pg (27-31); Mean Corpuscular Volume 75 fL (80-97); Mean Platelet Volume 9.3 fL (7.4-10.4); Platelet Count 255 10^3/uL (150-450); Red Blood Count 5.35 10^6 /uL (3.70-4.87); Red Cell Distribution Width 16 % (10-15); White Blood Count 13.4 10^3/uL (3.5-10.8)
[2019-05-14 10:40] LABS: ABS Eosinophils 0.1 10^3/ul (0-0.6); ABS Lymphocytes 6.5 10^3/ul (1.0-4.8); ABS Monocytes 1.1 10^3/ul (0-0.8); ABS Neutrophils 5.7 10^3/ul (1.5-7.7); Eosinophil % 0.4 %; Lymphocyte % 48.7 %; Nucleated Red Blood Cells % 0.3
[2019-05-14 11:01] LABS: ALT 10 U/L (7-52); AST 12 U/L (13-39); Albumin 3.5 g/dL (3.2-5.2); Albumin/Globulin Ratio 1.1 (1-3); Alkaline Phosphatase 50 U/L (34-104); Anion Gap 5 mmol/L (2-11); BUN/Creatinine Ratio 25.5 (8-20); Blood Urea Nitrogen 14 mg/dL (6-24); C Reactive Protein 1.89 mg/L (<8.01); CO2 Carbon Dioxide 27 mmol/L (22-32); Calcium 8.8 mg/dL (8.6-10.3); Chloride 106 mmol/L (101-111); EGFR African American 159.2 (>60); EGFR Non-African American 131.6 (>60); Globulin 3.1 g/dL (2-4); Glucose 84 mg/dL (70-100); Potassium 3.6 mmol/L (3.5-5.0); Sodium 138 mmol/L (135-145); Total Protein 6.6 g/dL (6.4-8.9)
[2019-05-14 11:07] VITALS: BP 135/99
[2019-05-14 11:07] LABS: HCG Pregnancy < 0.60 mIU/mL
== END 2019-05-14 11:07 | disposition home or self-care (01) ==
LOC: ED 08:24
DX: M54.5 Low back pain (principal); M79.605 Pain in left leg; R20.0 Anesthesia of skin; J45.909 Unspecified asthma, uncomplicated; Z79.51 Long term (current) use of inhaled steroids; Z88.5 Allergy status to narcotic agent; Z88.8 Allergy status to other drugs, medicaments and biological substances
CPT/HCPCS: 36415; 80053; 84702; 85025; 85060; 86140; 96374; 96375; 99282; J1100; J1885

== ENCOUNTER 2019-06-18 15:06 | Emergency (ER) | payer OTHER ==
--- OUTSIDE RECORDS SUMMARY | 2019-06-18 15:20 | XMS REPORT | Continuity of Care Document ---
:1990 External Reference #:[id number] Author Name Yumiko Calhoun MD (transmitted by agent of provider Renuka Eric) Address [address] [place] [address] Problems Active Problems Provider Date Thalassemia Onset: [...] CPT Code Status Date Vaccine Lot # [id number] Given 12/08/2018 Flu < 65 years [id number] Vital Signs Date Vital Result Comment 05/13/2019 [...] Date Facility Test Result H/L Range Note Comp Metabolic 05/14/2019 [facility] Sodium 138 mmol/L Normal 135-[address] [place] [address] [phone] Potassium 3.6 mmol/L Normal 3.5-5.0 Chloride 106 mmol/L Normal 101-111 Co2 Carbon Dioxide 27 mmol/L Normal 22-32 Anion Gap 5 mmol/L Normal 2-11 Glucose 84 mg/dL Normal 70-100 Blood Urea Nitrogen 14 mg/dL Normal 6-24 Creatinine 0.55 mg/dL Normal 0.51-0.95 BUN/Creatinine Ratio 25.5 High 8-20 Calcium 8.8 mg/dL Normal 8.6-10.3 Total Protein 6.6 g/dL Normal 6.4-8.9 Albumin 3.5 g/dL Normal 3.2-5.2 Globulin 3.1 g/dL Normal 2-4 Albumin/Globulin Ratio 1.1 Normal 1-3 Total Bilirubin 0.20 mg/dL Normal 0.2-1.0 Alkaline Phosphatase 50 U/L Normal 34-104 Alt 10 U/L Normal 7-52 Ast 12 U/L Low 13-39 Egfr Non- 131.6 >60 Egfr 159.2 >60 1 Laboratory test 05/14/2019 [facility] C Reactive 1.89 mg/L Normal <8.[address] [place] [address] [phone] HCG < 0.60 mIU/mL 2 CBC Auto 05/14/2019 [facility] White Blood 13.4 10^3/uL High 3.5-10.[address] [place] [address] [phone] Red Blood Count 5.35 10^6/uL High 3.70-4.87 Hemoglobin 13.0 g/dL Normal 12.0-16.0 Hematocrit 40 % Normal 35-47 Mean Corpuscular Volume 75 fL Low 80-97 Mean Corpuscular Hemoglobin 24 pg Low 27-31 Mean Corpuscular HGB Conc 33 g/dL Normal 31-36 Red Cell Distribution Width 16 % High 10-15 Platelet Count 255 10^3/uL Normal 150-450 Mean Platelet Volume 9.3 fL Normal 7.4-10.4 Abs Neutrophils 5.7 10^3/uL Normal 1.5-7.7 Abs Lymphocytes 6.5 10^3/uL High 1.0-4.8 Abs Monocytes 1.1 10^3/uL High 0-0.8 Abs Eosinophils 0.1 10^3/uL Normal 0-0.6 Abs Basophils 0.0 10^3/uL Normal 0-0.2 Abs Nucleated RBC 0.0 10^3/uL Granulocyte % 42.6 % Lymphocyte % 48.7 % Monocyte % 8.0 % Eosinophil % 0.4 % Basophil % 0.3 % Nucleated Red Blood Cells % 0.3 Laboratory test 05/14/2019 [facility] Pathologist Review (SEE NOTE) [address] [place] [address] [phone] Order 04/28/2019 [facility] <pending> Evaluate And Treat Laboratory test 04/07/2019 [facility] Cytology SEE RESULT [address] BELOW [place], [place] [address] [phone] CFM Urinalysis 03/18/2019 [facility] Urine Specific >1.030 ( )- - [place] Ua PH Test Strip 6.0 Ua WBC neg Ua Protein 100 Urine Glucose QL neg Urine Ketones QL Test Strip 15 Urine Bilirubin TTL QL T-Strip small Urine Urobilinogen QN TS 0.2 Urine Nitrite QL TS neg Ua Occult Blood trace Laboratory test 03/18/2019 [facility] Gardnerella/Yeast: SEE RESULT [address] Vaginal Dna BELOW [place], [place] [address] [phone] GC/Chlamydia 03/18/2019 [facility] GCCHL Disclaimer (SEE NOTE) 6 Amplified Rna [address] [place], [place] [address] [phone] Chlamydia trachomatis Ivone Negative Negative Neisseria gonorrhoeae (GC) Ivone Negative Negative Laboratory test 03/18/2019 [facility] Culture Genital SEE RESULT [address] & [place] [address] [phone] Laboratory test 03/18/2019 [facility] CF Urine, negative finding ( )- - Urine Culture And 12/16/2018 [facility] Urine Culture SEE RESULT [address] BEL[address] [place], [place] [address] [phone] CFM Urinalysis 12/16/2018 [facility] Urine Specific 1.015 ( )- - [place] Ua PH Test Strip 6.5 Ua Color <pending> Ua Appearance <pending> Ua WBC large Ua Protein trace Urine Glucose QL neg Urine Ketones QL Test Strip neg Urine Bilirubin TTL QL T-Strip neg Urine Urobilinogen QN TS 0.2 Urine Nitrite QL TS neg Ua Occult Blood trace 1 Because ethnic data is not always readily available, this report includes an eGFR for both -Americans and non- Americans. The National Kidney Disease Education Program (NKDEP) does not endorse the use of the MDRD equation for patients that are not between the ages of 18 and 70, are , have extremes of body size, muscle mass, or nutritional status, or are non- or non-. According to the National Kidney Foundation, irrespective of diagnosis, the stage of the disease is based on the level of kidney function: Stage Description GFR(mL/min/1.73 m(2)) 1 Kidney damage with normal or decreased GFR 90 2 Kidney damage with mild decrease in GFR 60-89 3 Moderate decrease in GFR 30-59 4 Severe decrease in GFR 15-29 5 Kidney failure <15 (or dialysis) 2 <5.0 Negative 5.0 - 25.0 Indeterminate (Repeat testing recommended after 72 hours) >25.0 Positive Perimenopausal women can display HCG levels of up to 20 mIU/mL 3 RBC indices suggestive of a thalassemia. Recommend correlation with hemoglobin electrophoresis for further characterization. Mild absolute lymphocytosis. Reviewed by Nneka Lacey CORRECTED REPORT --- Corrected on 05/14/19 1534 --- Path Review previously reported as: RBC indices suggestive of a thalassemia. Recommend correlation with hemoglobin electrophoresis for further characterization. Mild absolute lymphocytosis. [place] Reviewed by Akbar Capps 4 SEE RESULT BELOW Name: ECHO WESLEY : [address]: Jonatan Melendrez DO Acct: [id number] Unit: [id number] AGE: 28 Location: [facility] Re04/07/19 SEX: F Status: REG REF SPEC: [id number] UZMA: 04/07/19-[address]: Jonatan Melendrez DO REQ: [id number] RECD: 04/07/19-160 STATUS: HOLLIE WAGONER DR: Yumiko Calhoun MD _ ORDERED: TP IMAGE ANALYS COMMENTS: [id number] FINAL DIAGNOSIS Negative for Intraepithelial lesion or [...] was evaluated with the assistance of the [employer] Test Imaging System. Due to cytologic findings at the community youth secretary microscope, comprehensive manual rescreening by a Audio Visual Facilities Engineer may be required. The Pap Smear is [...] years. END OF REPORT DEPARTMENT OF PATHOLOGY, [address] [place] [address] Amish Castelan M.D. Director [facility] # [id number] 5 SEE RESULT BELOW Name: HERI WESLEY : [address]: Yumiko Calhoun MD Acct: [id number] Unit: [id number] AGE: 28 Location: [facility] Re03/18/19 SEX: F Status: REG REF SPEC: [id number] UZMA: 03/18/19-[address]: Yumiko Calhoun MD REQ: [id number] RECD: 03/18/19-1730 STATUS: RES _ SOURCE: VAGINAL SPDESC: ORDERED: Genital Culture, Jazmine,Yeast DNA, Trich DNA COMMENTS: [id number] Would you like to order Trichomonas Vaginalis [...] CONTINUED ON NEXT PAGE DEPARTMENT OF PATHOLOGY, [address] [place] [address] Amish Castelan M.D. Director [facility] # [id number] Patient: DALTONHERI [id number] (Continued) Specimen: [id number] Collected: 03/18/19-1555 Received: 03/18/19-1730 (Continued) Procedure Result Reported Site Gardnerella/Yeast: Vaginal DNA Final (continued) 03/19/19- 1326 Trichomonas: Vaginal DNA Probe Final 03/19/19- 1326 ML Organism 1 Negative Trichomonas The presence or absence of T. vaginalis cannot be used as a test for therapeutic success or failure. * ML - Main Lab . END OF REPORT DEPARTMENT OF PATHOLOGY, [address] [place] [address] Amish Castelan M.D. Director [facility] # [id number] 6 As with all diagnostic procedures, the laboratory results obtained should be used in conjunction with other clinical information available to the physician, including confirmation by another method, as applicable. 7 SEE RESULT BELOW Name: HERI WESLEY : [address]: Yumiko Calhoun MD Acct: [id number] Unit: [id number] AGE: 28 Location: [facility] Re03/18/19 SEX: F Status: REG REF SPEC: [id number] UZMA: 03/18/19-[address] [facility] [address]: Yumiko Calhoun MD REQ: [id number] RECD: 03/18/19-173 STATUS: COMP _ SOURCE: VAGINAL SPDESC: ORDERED: Genital Culture, Jazmine,Yeast DNA, Trich DNA COMMENTS: [id number] Would you like to order Trichomonas Vaginalis [...] resistant strains have not been recognized. (CLSI W816-H08;p.66) Positive isolates will be saved for one week. Please call the Microbiology Laboratory if further susceptibility testing is needed. Gardnerella/Yeast: Vaginal DNA Final 03/19/19- 1327 ML Organism 1 POSITIVE DEEPALI Organism 2 POSITIVE GARDNERELLA CONTINUED ON NEXT PAGE DEPARTMENT OF PATHOLOGY, [address] [place] [address] Amish Castelan M.D. Director [facility] # [id number] Patient: HERI WESLEY [id number] (Continued) Specimen: [id number] Collected: 03/18/19-1555 Received: 03/18/19-1730 (Continued) Procedure Result [...] . END OF REPORT DEPARTMENT OF PATHOLOGY, [address] [place] [address] Amish Castelan M.D. Director [facility] # [id number] 8 SEE RESULT BELOW Name: HERI WESLEY : [address]: Tess Chandler NP Acct: [id number] Unit: [id number] AGE: 27 Location: [facility] Re12/16/18 SEX: F Status: REG REF SPEC: [id number] UZMA: 12/16/[address]: Tess Chandler NP REQ: [id number] RECD: 12/16/18 STATUS: COMP _ SOURCE: URINE SPDESC: ORDERED: Urine Culture COMMENTS: [id number] Urine Source: Random Procedure Result Reported Site Urine Culture Final 12/17/18- 1804 ML Organism 1 STAPHYLOCOCCUS SAPROPHYTICUS [place] Count >100,000 (Many) CFU/ML Routine sensitivity testing of urine isolates of S. saprophyticus is not advised, because infections respond to concentrations achieved in urine of antimicrobial agents commonly used to treat acute, uncomplicated urinary tract infections (e.g. nitrofurantoin, trimethoprim+/- sulfamethoxazole, or a fluoroquinolone). [facility] March 2001 * - [facility] . END OF REPORT DEPARTMENT OF PATHOLOGY, [address] [place] [address] Amish Castelan M.D. Director [facility] # [id number] Procedures Date Code Description Status 04/28/2019 61307 Brief Emotional/Behav Assessment W/ Scoring Doc Per Completed [facility] 01/11/2019 55484 Brief Emotional/Behav Assessment W/ Scoring Doc Per Completed Standard Inst Medical Devices Description No Information Available Encounters Type Date Location Provider Dx Diagnosis Office Visit 05/13/2019 3:45p JENNIFER Calhoun MD M54.5 Low back pain Office Visit 04/28/2019 1:15p JENNIFER Calhoun MD [...] MD 04/28/2019 J45.909 Unspecified asthma, uncomplicated Yumiko Calhoun, 04/28/2019 F31.9 Bipolar disorder, unspecified Yumiko Calhoun MD 04/28/2019 G47.00 Insomnia, unspecified Yumiko Calhuon MD 04/28/2019 Z13.31 Encounter for screening for depression Yumiko Calhoun MD 03/18/2019 R11.0 Nausea Yumiko Calhoun MD 03/18/2019 N89.8 Other specified noninflammatory disorders of Yumiko Calhoun MD [facility] 01/27/2019 M54.5 Low back pain Tess Chandler [facility] 01/27/2019 F31.9 Bipolar disorder, unspecified Tess Chandler [facility] 01/11/2019 F31.9 Bipolar disorder, unspecified Yumiko Calhoun MD 01/11/2019 J45.909 Unspecified asthma, uncomplicated Yumiko Calhoun MD 01/11/2019 Z13.31 Encounter for screening for depression Yumiko Calhoun MD 12/16/2018 N39.0 Urinary tract infection, site not specified Tess Chandler [facility] 12/16/2018 R35.0 Frequency of micturition Tess Chandler AUTOMATION APPLICATION ENGINEER 12/08/2018 Z23 Encounter for immunization Nurse Plan of Treatment 05/13/2019 - Yumiko Calhoun, MDM54.5 Low back painNew Medication:Prednisone 20 mg - take 2 tablet daily for 7 days Functional Status Description No Information Available Mental Status Description No Information Available Referrals Refer to Reason for Referral Status Appt Date Patient with ongoing left hip pain seen at Urgent Care Sent and ER. MRI pending
--- OUTSIDE RECORDS SUMMARY | 2019-06-18 15:20 | XMS REPORT | Continuity of Care Document ---
:1990 External Reference #:[id number] Author Name Mona Ortiz M.D. (transmitted by agent of provider Melissa Cortez) Address [address] [facility] [place] [address] Care Team Providers Name Role Phone [facility] - Care Team Information Clinical Trial Associate Mental Health Yumiko Calhoun M.D. - Family Care Team Information Clinical Trial Associate Medicine Problems Description No Information Available Social History Type Date Description Comments Sex Unknown ETOH Use Occasionally consumes alcohol Tobacco Use Start: Unknown End: Patient is a former Not consistently, Unknown smoker unsure of when she quit. Recreational Drug Use Sporadically uses Marijuana Smoking Status Reviewed: 05/24/19 Patient is a former Not consistently, smoker unsure of when she quit. Exercise Type/Frequency Exercises sporadically Allergies, Adverse Reactions, Alerts Active Allergies Reaction Severity Comments Date Lurasidone Stays awake for Days 05/24/2019 Tramadol Cyclical Vomiting 05/24/2019 Inactive Allergies NKDA 10/14/2017 Medications Active Medications SIG Qnty Indications Ordering Provider Date Respiratol 3mg daily Unknown Immunizations Description No Information Available Vital Signs Date Vital Result Comment 05/24/2019 9:29am Height 65 inches 5'5" Weight 170.00 lb Heart Rate 80 /min BP Systolic 110 mmHg BP Diastolic 68 mmHg Respiratory Rate 18 /min Body Temperature 97.7 F Pain Level 10 BMI (Body Mass Index) 28.3 kg/m2 10/14/2017 10:45am Height 65 inches 5'5" Weight 199.00 lb Heart Rate 79 /min BP Systolic Sitting 110 mmHg BP Diastolic Sitting 72 mmHg O2 % BldC Oximetry 98 % BMI (Body Mass Index) 33.1 kg/m2 Results Description No Information Available Procedures Description No Information Available Medical Devices Description No Information Available Encounters Type Date Location Provider Dx Diagnosis Office Visit 05/24/2019 [facility] Mona Ortiz, M25.552 Pain in left hip 9:15a at [place] [facility] M25.562 Pain in left knee M54.5 Low back pain M54.32 Sciatica, left side Assessments Date Code Description Provider 05/24/2019 M25.552 Pain in left hip Mona Ortiz M.D. 05/24/2019 M25.562 Pain in left knee Mona Ortiz M.D. 05/24/2019 M54.5 Low back pain Mona Ortiz M.D. 05/24/2019 M54.32 Sciatica, left side Mona Ortiz M.D. Plan of Treatment 05/24/2019 - Mona Ortiz M.D.M25.552 Pain in left hipReferral:Arabella Nava MD, Surgery,NeurologicalFollow up:Follow up: As gttbeqD62.562 Pain in left kneeM54.5 Low back painM54.32 Sciatica, left side Functional Status Description No Information Available Mental Status Description No Information Available Referrals Refer to Reason for Referral Status Appt Date Arabella Nava MD low back pain with radiculopathy Sent [address] [place] [address] [place] [address] [phone]
--- OUTSIDE RECORDS SUMMARY | 2019-06-18 15:20 | XMS REPORT | Continuity of Care Document ---
:1990 External Reference #:[id number] Author Name Yumiko Calhoun MD Address [address] [facility] [place] [address] Problems Active Problems Provider Date Thalassemia Onset: [...] 05/13/2019 20mg Tablets daily for 7 days MD Nebulizer to be used every J45.909 Yumiko [...] CPT Code Status Date Vaccine Lot # [id number] Given 12/08/2018 Flu < 65 years [id number] Vital Signs Date Vital Result Comment 05/13/2019 [...] Result H/L Range Note Comp Metabolic 05/14/2019 [facility] Sodium 138 mmol/L Normal 135-[address] [place] [address] [phone] Potassium 3.6 mmol/L Normal 3.5-5.0 Chloride 106 [...] Egfr 159.2 >60 1 Laboratory test 05/14/2019 [facility] C Reactive 1.89 mg/L Normal <8.[address] [place] [address] [phone] HCG < 0.60 mIU/mL 2 CBC Auto 05/14/2019 [facility] White Blood 13.4 10^3/uL High 3.5-10.[address] [place] [address] [phone] Red Blood Count 5.35 10^6/uL High 3.70-4.87 [...] Blood Cells % 0.3 Laboratory test 05/14/2019 [facility] Pathologist Review (SEE NOTE) [address] [place] [address] [phone] Order 04/28/2019 [facility] <pending> Evaluate And Treat Laboratory test 04/07/2019 [facility] Cytology SEE RESULT [address] [place] [address] [phone] CFM Urinalysis 03/18/2019 [facility] Urine Specific >1.030 ( )- - [place] Ua PH Test Strip 6.0 Ua WBC neg Ua Protein 100 Urine Glucose QL neg Urine Ketones QL Test Strip 15 Urine Bilirubin TTL QL T-Strip small Urine Urobilinogen QN TS 0.2 Urine Nitrite QL TS neg Ua Occult Blood trace Laboratory test 03/18/2019 [facility] Gardnerella/Yeast: SEE RESULT [address] [place] [address] [phone] GC/Chlamydia 03/18/2019 [facility] GCCHL Disclaimer (SEE NOTE) 6 Amplified Rna [address] [place], [place] [address] [phone] Chlamydia trachomatis Ivone Negative Negative Neisseria gonorrhoeae (GC) Ivone Negative Negative Laboratory test 03/18/2019 [facility] Culture Genital SEE RESULT [address] & Sensitivity BELOW [place], [place] [address] [phone] Laboratory test 03/18/2019 [facility] Urine, negative finding ( )- - Urine Culture And 12/16/2018 [facility] Urine Culture SEE RESULT [address] [place] [place], [place] [address] [phone] CFM Urinalysis 12/16/2018 [facility] Urine Specific 1.015 ( )- - [place] Ua PH Test Strip 6.5 Ua Color [...] Name: ECHO WESLEY : [address]: Jonaatn Melendrez DO Acct: [id number] Unit: [id number] AGE: 28 Location: [facility] Re04/07/19 SEX: F Status: REG REF SPEC: [id number] UZMA: 04/07/19-[address]: Jonatan Melendrez DO REQ: [id number] RECD: 04/07/19-2495 STATUS: HOLLIE WAGONER DR: Yumiko Calhoun MD _ ORDERED: TP IMAGE ANALYS COMMENTS: [id number] FINAL DIAGNOSIS Negative for Intraepithelial lesion or [...] was evaluated with the assistance of the [employer] Test Imaging System. Due to cytologic findings at the industrial illuminating engineer microscope, comprehensive manual rescreening by a Financial Accountant may be required. The Pap Smear is [...] years. END OF REPORT DEPARTMENT OF PATHOLOGY, [address] [place] [address] Amish Castelan M.D. Director [facility] # [id number] 5 SEE RESULT BELOW Name: HERI WESLEY : [address]: Yumiko Calhoun MD Acct: [id number] Unit: [id number] AGE: 28 Location: [facility] Re03/18/19 SEX: F Status: REG REF SPEC: [id number] UZMA: 03/18/19-[address] [facility] [address]: Yumiko Calhoun MD REQ: [id number] RECD: 03/18/19-173 STATUS: RES _ SOURCE: VAGINAL SPDESC: ORDERED: Genital Culture, Jazmine,Yeast DNA, Trich DNA COMMENTS: [id number] Would you like to order Trichomonas Vaginalis [...] CONTINUED ON NEXT PAGE DEPARTMENT OF PATHOLOGY, [address] [place] [address] Amish Castelan M.D. Director [facility] # [id number] Patient: HERI WESLEY [id number] (Continued) Specimen: [id number] Collected: 03/18/19-155 Received: 03/18/19-1730 (Continued) Procedure Result Reported Site Gardnerella/Yeast: Vaginal DNA Final (continued) 03/19/19- 1326 Trichomonas: Vaginal DNA Probe Final 03/19/19- 1326 ML Organism 1 Negative Trichomonas The presence or absence of T. vaginalis cannot be used as a test for therapeutic success or failure. * ML - Main Lab . END OF REPORT DEPARTMENT OF PATHOLOGY, [address] [place] [address] Amish Castelan M.D. Director [facility] # [id number] 6 As with all diagnostic procedures, the laboratory results obtained should be used in conjunction with other clinical information available to the physician, including confirmation by another method, as applicable. 7 SEE RESULT BELOW Name: HERI WESLEY : [address]: Yumiko Calhoun MD Acct: [id number] Unit: [id number] AGE: 28 Location: [facility] Re03/18/19 SEX: F Status: REG REF SPEC: [id number] UZMA: 03/18/19-[address] [facility] [address]: Yumiko Calhoun MD REQ: [id number] RECD: 03/18/19 STATUS: COMP _ SOURCE: VAGINAL SPDESC: ORDERED: Genital Culture, Jazmine,Yeast DNA, Trich DNA COMMENTS: [id number] Would you like to order Trichomonas Vaginalis [...] resistant strains have not been recognized. (CLSI N749-E34;p.66) Positive isolates will be saved for one week. Please call the Microbiology Laboratory if further susceptibility testing is needed. Gardnerella/Yeast: Vaginal DNA Final 03/19/19- 1327 ML Organism 1 POSITIVE DEEPALI Organism 2 POSITIVE GARDNERELLA CONTINUED ON NEXT PAGE DEPARTMENT OF PATHOLOGY, [address] [place] [address] Amish Castelan M.D. Director [facility] # [id number] Patient: HERI WESLEY [id number] (Continued) Specimen: [id number] Collected: 03/18/19-1555 Received: 03/18/19-1730 (Continued) Procedure Result [...] . END OF REPORT DEPARTMENT OF PATHOLOGY, [address] [place] [address] Amish Castelan M.D. Director [facility] # [id number] 8 SEE RESULT BELOW Name: HERI WESLEY : [address]: Tess Chandler NP Acct: [id number] Unit: [id number] AGE: 27 Location: [facility] Re12/16/18 SEX: F Status: REG REF SPEC: [id number] UZMA: 12/16/[address]: Tess Chandler NP REQ: [id number] RECD: 12/16/18 STATUS: COMP _ SOURCE: URINE SPDESC: ORDERED: Urine Culture COMMENTS: [id number] Urine Source: Random Procedure Result Reported Site Urine Culture Final 12/17/18- 1804 ML Organism 1 STAPHYLOCOCCUS SAPROPHYTICUS [place] Count >100,000 (Many) CFU/ML Routine sensitivity testing of urine isolates of S. saprophyticus is not advised, because infections respond to concentrations achieved in urine of antimicrobial agents commonly used to treat acute, uncomplicated urinary tract infections (e.g. nitrofurantoin, trimethoprim+/- sulfamethoxazole, or a fluoroquinolone). [facility] March 2001 * - Main Lab . END OF REPORT DEPARTMENT OF PATHOLOGY, [address] [place] [address] Amish Castelan M.D. Director [facility] # [id number] Procedures Date Code Description Status 04/28/2019 07295 Brief Emotional/Behav Assessment W/ Scoring Doc Per Completed Standard Inst 01/11/2019 77639 Brief Emotional/Behav Assessment W/ Scoring Doc Per [...] micturition Assessments Date Code Description Provider 05/13/2019 Sourav Low back pain Yumiko Calhoun MD 04/28/2019 M54.5 Low back pain Yumiko Calhoun MD 04/28/2019 J45.909 Unspecified asthma, uncomplicated Yumiko Calhoun MD 04/28/2019 F31.9 Bipolar disorder, unspecified Yumiko Calhoun MD 04/28/2019 G47.00 Insomnia, unspecified Yumiko Calhoun MD 04/28/2019 Z13.31 Encounter for screening for depression Yumiko Calhoun MD 03/18/2019 R11.0 Nausea Yumiko Calhoun MD 03/18/2019 N89.8 Other specified noninflammatory disorders of Yumiko Calhoun MD [facility] 01/27/2019 M54.5 Low back pain VENTURA McdonoughP [...] Encounter for immunization Nurse Plan of Treatment Future Appointment(s):05/20/2019 11:00 am - Yumiko Calhoun MD at [facility]2019 - Yumiko Calhoun MDM54.5 Low back painNew Medication:Prednisone 20 mg - take 2 tablet daily for 7 days Functional Status Description No Information Available Mental Status Description No Information Available Referrals Description No Information Available
--- OUTSIDE RECORDS SUMMARY | 2019-06-18 15:20 | XMS REPORT | Continuity of Care Document ---
:1990 External Reference #:[id number] Author Name Mona Ortiz M.D. (transmitted by agent of provider Yumiko Palmer) Address [address] [facility] [place] [address] Care Team Providers Name Role Phone [facility] - Care Team Information Maintenance Mechanic 2Nd Shift Mental Health Yumiko Calhoun M.D. - Family Care Team Information Maintenance Mechanic 2Nd Shift [phone] Medicine Problems Description No Information Available Social [...] Location Provider Dx Diagnosis Office Visit 05/24/2019 [facility] Mona Ortiz, M25.552 Pain in left hip 9:15a at [facility] M25.562 Pain in left knee M54.5 Low back pain M54.32 Sciatica, left side Assessments Date Code Description Provider 05/24/2019 M25.552 Pain in left hip Mona Ortiz M.D. 05/24/2019 M25.562 Pain in left knee Mona Ortiz M.D. 05/24/2019 M54.5 Low back pain Mona Ortiz M.D. 05/24/2019 M54.32 Sciatica, left side Mona Ortiz M.D. Plan of Treatment 05/24/2019 - Mona Ortiz M.D.M25.552 Pain in left hipNew Xrays:Hips-Bilateral 5+ VWS, Ordered: 05/24/19Referral:Arabella Nava MD, Surgery, NeurologicalFollow up:Follow up: As gfumabG30.562 Pain in left kneeNew Xrays: Knee 3 Views LT, Ordered: 05/24/19M54.5 Low back painM54.32 Sciatica, left side Functional Status Description No Information Available Mental Status Description No Information Available Referrals Refer to Reason for Referral Status Appt Date Arabella Nava MD low back pain with radiculopathy Created [address] [place] [address] [place] [address] [phone]
--- OUTSIDE RECORDS SUMMARY | 2019-06-18 15:20 | XMS REPORT | Continuity of Care Document ---
:1990 External Reference #:[id number] Author Name Yumiko Calhoun MD Address [address] [facility] [place] [address] Problems Active Problems Provider Date Thalassemia Onset: 09/24/2018 Asthma Onset: 08/19/2018 Bipolar I disorder Onset: 08/19/2018 Backache Onset: 08/19/2018 Social History Type Date Description Comments Sex Female Tobacco Use Start: Unknown Patient has never smoked Tobacco Use Start: Unknown marijuana every day Smoking Status Reviewed: 06/18/19 marijuana every day Allergies, Adverse Reactions, Alerts Active Allergies Reaction Severity Comments Date Latuda No Reaction Indicated 11/13/2018 Tramadol Hydrochloride Nausea, vomiting and diarrhea Moderate 11/13/2018 Medications Active Medications SIG Qnty Indications Ordering Date Provider Nebulizer to be used every J45.909 Yumiko Calhoun, 04/28/2019 Device 4-6 hours with albuterol as needed for symptoms Ventolin HFA 2 every 4 hours 1units Yumiko Calhoun, 08/18/2018 108(90Base) inhalation mcg/Act Aerosol Cyclobenzaprine HCL one to two Unknown 5mg tablets by mouth Tablets every 8 hours as needed Ibuprofen 1 every 6 hours Unknown 200mg Tablets as needed oral; use as needed cramps History Medications Prednisone take 2 tablet 14tabs M54.5 Yumiko Calhoun, 05/13/2019 - 20mg Tablets daily for 7 days 05/24/2019 Risperidone take 1 tablet by 30tabs F31.9 Yumiko Calhoun, 04/28/2019 - 3mg Tablets mouth each night 06/18/2019 Clindamycin Phosphate use 1 applicator 80gm N89.8 Yumiko Calhoun, 2019 - vaginally daily 04/27/2019 2% Cream for 7 days Lidocaine Pain Relief 1 patch to lower 5units M54.5 ROBSON Mcdonough 2018 - back every 12 02/05/2019 4% Patches hours- off 12 hours Quetiapine Fumarate take 1 tablet by 60tabs ROBSON Mcdonough 01/11/2019 - ER mouth at bedtime 02/15/2019 150mg Tablets ER for 3 days then 24HR increase to 2 tablets by mouth at bedtime Symbicort take 2 puffs by 13.8gm Yumiko Calhoun, 01/11/2019 - 80-4.5mcg/Act mouth in the MD 01/25/2019 Aerosol moring and in the evening Ciprofloxacin HCL 1 tab by mouth 14tabs ROBSON Mcdonough 12/18/2018 - 500mg twice a day 01/11/2019 Tablets Immunizations CPT Code Status Date Vaccine Lot # [id number] Given 12/08/2018 Flu < 65 years [id number] Vital Signs Date Vital Result Comment 06/18/2019 1:33pm Height 64 inches 5'4" Weight 167.00 lb BMI (Body Mass Index) 28.7 kg/m2 05/13/2019 3:47pm BP Systolic 144 mmHg LT arm BP Diastolic 76 mmHg LT arm Height 64 inches 5'4" Weight 167.00 lb Heart Rate 66 /min Body Temperature 97.5 F Respiratory Rate 98 /min room air BMI (Body Mass Index) 28.7 kg/m2 Results Test Acquired Date Facility Test Result H/L Range Note Comp Metabolic 05/14/2019 [facility] Sodium 138 mmol/L Normal 135-145 Panel [address] [place] [address] [phone] Potassium 3.6 mmol/L Normal 3.5-5.0 Chloride 106 [...] Egfr 159.2 >60 1 Laboratory test 05/14/2019 [facility] C Reactive 1.89 mg/L Normal <8.[address] [place] [address] [phone] HCG < 0.60 mIU/mL 2 CBC Auto 05/14/2019 [facility] White Blood 13.4 10^3/uL High 3.5-10.[address] [place] [address] [phone] Red Blood Count 5.35 10^6/uL High 3.70-4.87 [...] Blood Cells % 0.3 Laboratory test 05/14/2019 [facility] Pathologist Review (SEE NOTE) [address] [place] [address] [phone] Order 04/28/2019 [facility] <pending> Evaluate And Treat Laboratory test 04/07/2019 [facility] Cytology SEE RESULT [address] [place] [address] [phone] CFM Urinalysis 03/18/2019 [facility] Urine Specific >1.030 ( )- - Millis Ua PH Test Strip 6.0 Ua WBC neg Ua Protein 100 Urine Glucose QL neg Urine Ketones QL Test Strip 15 Urine Bilirubin TTL QL T-Strip small Urine Urobilinogen QN TS 0.2 Urine Nitrite QL TS neg Ua Occult Blood trace Laboratory test 03/18/2019 [facility] Gardnerella/Yeast: SEE RESULT [address] [place] [address] [phone] GC/Chlamydia 03/18/2019 [facility] GCCHL Disclaimer (SEE NOTE) 6 Amplified Rna [address] [place] [address] [phone] Chlamydia trachomatis Ivone Negative Negative Neisseria gonorrhoeae (GC) Ivone Negative Negative Laboratory test 03/18/2019 [facility] Culture Genital & SEE RESULT [address] [place] [address] [phone] Laboratory test 03/18/2019 [facility] CFM Urine, negative finding ( )- - 1 Because ethnic data is not always [...] absolute lymphocytosis. [place] Reviewed by Akbar Capps SEE RESULT BELOW Name: ECHO WESLEY : [address]: Jonatan Melendrez DO Acct: [id number] Unit: [id number] AGE: 28 Location: [facility] Re04/07/19 SEX: F Status: REG REF SPEC: [id number] UZMA: 04/07/19-[address]: Jonatan Melendrez DO REQ: [id number] RECD: 04/07/19-1605 STATUS: HOLLIE WAGONER DR: Yumiko Calhoun MD _ ORDERED: TP IMAGE ANALYS COMMENTS: [id number] FINAL DIAGNOSIS Negative for Intraepithelial lesion or [...] was evaluated with the assistance of the [employer] Test Imaging System. Due to cytologic findings at the research software engineer microscope, comprehensive manual rescreening by a Shock Absorber Installer may be required. The Pap Smear is [...] years. END OF REPORT DEPARTMENT OF PATHOLOGY, [address] [place] [address] Amish Castelan M.D. Director [facility] # [id number] 5 SEE RESULT BELOW Name: HERI WESLEY : [address]: Yumiko Calhoun MD Acct: [id number] Unit: [id number] AGE: 28 Location: [facility] Re03/18/19 SEX: F Status: REG REF SPEC: [id number] UZMA: 03/18/19-[address] [facility] [address]: Yumiko Calhoun MD REQ: [id number] RECD: 03/18/199 STATUS: RES _ [facility] ORDERED: Genital Culture, Jazmine,Yeast DNA, Trich DNA COMMENTS: [id number] Would you like to order Trichomonas Vaginalis [...] CONTINUED ON NEXT PAGE DEPARTMENT OF PATHOLOGY, [address] [place] [address] Amish Castelan M.D. Director [facility] # [id number] Patient: HERI WESLEY [id number] (Continued) Specimen: [id number] Collected: 03/18/19-1555 Received: 03/18/19 (Continued) Procedure Result Reported Site Gardnerella/Yeast: Vaginal DNA Final (continued) 03/19/19- 1326 Trichomonas: Vaginal DNA Probe Final 03/19/19- 1326 ML Organism 1 Negative Trichomonas The presence or absence of T. vaginalis cannot be used as a test for therapeutic success or failure. * ML - Main Lab . END OF REPORT DEPARTMENT OF PATHOLOGY, [address] [place] [address] Amish Castelan M.D. Director [facility] # [id number] 6 As with all diagnostic procedures, the laboratory results obtained should be used in conjunction with other clinical information available to the physician, including confirmation by another method, as applicable. 7 SEE RESULT BELOW Name: HERI WESLEY : [address]: Yumiko Calhoun MD Acct: [id number] Unit: [id number] AGE: 28 Location: [facility] Re03/18/19 SEX: F Status: REG REF SPEC: [id number] UZMA: 03/18/19-49[address] [facility] [address]: Yumiko Calhoun MD REQ: [id number] RECD: 03/18/19-4561 STATUS: COMP _ SOURCE: VAGINAL SPDESC: ORDERED: Genital Culture, Jazmine,Yeast DNA, Trich DNA COMMENTS: [id number] Would you like to order Trichomonas Vaginalis [...] resistant strains have not been recognized. (CLSI Q189-C06;p.66) Positive isolates will be saved for one week. Please call the Microbiology Laboratory if further susceptibility testing is needed. Gardnerella/Yeast: Vaginal DNA Final 03/19/19- 1327 ML Organism 1 POSITIVE DEEPALI Organism 2 POSITIVE GARDNERELLA CONTINUED ON NEXT PAGE DEPARTMENT OF PATHOLOGY, [address] [place] [address] Amish Castelan M.D. Director [facility] # [id number] Patient: HERI WESLEY [id number] (Continued) Specimen: [id number] Collected: 03/18/19 Received: 03/18/19 (Continued) Procedure Result [...] for therapeutic success or failure. * - [facility] . END OF REPORT DEPARTMENT OF PATHOLOGY, [address] [place] [address] Amish Castelan M.D. Director [facility] # [id number] Procedures Date Code Description Status 06/17/2019 49769 Brief Emotional/Behav Assessment W/ Scoring Doc Per Completed Standard Inst 04/28/2019 85171 Brief Emotional/Behav Assessment W/ Scoring Doc Per Completed Standard Inst 01/11/2019 89016 Brief Emotional/Behav Assessment W/ Scoring Doc Per Completed Standard Inst Medical Devices Description No Information Available Encounters Type Date Location Provider Dx Diagnosis Office Visit 06/18/2019 [facility] Jude Calhoun MD S06.0x9D Concussion w loss of 1:30p consciousness of unsp duration, subs M54.5 Low back pain Office Visit 05/13/2019 3:45p [facility] Jude Calhoun MD M54.5 Low back pain Office Visit 04/28/2019 1:15p [facility] Jude Calhoun MD M54.5 Low back pain J45.909 Unspecified asthma, uncomplicated F31.9 Bipolar disorder, unspecified G47.00 Insomnia, unspecified Z13.31 Encounter for screening for depression Office Visit 03/18/2019 3:15p [facility] Jude Calhoun MD R11.0 Nausea N89.8 Other specified noninflammatory disorders of vagina Office Visit 01/27/2019 9:45a [facility] ROBSON Genao M54.5 Low back pain F31.9 Bipolar disorder, unspecified Office Visit 01/11/2019 10:00a [facility] Yumiko Calhoun MD F31.9 Bipolar disorder, unspecified J45.909 Unspecified asthma, uncomplicated Z13.31 Encounter for screening for depression Assessments Date Code Description Provider 06/18/2019 S06.0x9D Concussion with loss of consciousness of Yumiko Calhoun MD unspecified duration, subsequent encounter 06/18/2019 M54.5 Low back pain Yumiko Calhoun MD 05/13/2019 M54.5 Low back pain Yumiko Calhoun, 04/28/2019 M54.5 Low back pain Yumiko Calhoun, 04/28/2019 J45.909 Unspecified asthma, uncomplicated Yumiko Calhoun, 04/28/2019 F31.9 Bipolar disorder, unspecified Yumiko Calhoun, 04/28/2019 G47.00 Insomnia, unspecified Yumiko Calhoun, 04/28/2019 Z13.31 Encounter for screening for depression Yumiko Calhoun MD 03/18/2019 R11.0 Nausea Yumiko Calhoun MD 03/18/2019 N89.8 Other specified noninflammatory disorders of Yumiko Calhoun MD vagina 01/27/2019 M54.5 Low back pain Tess Chandler [facility] 01/27/2019 F31.9 Bipolar disorder, unspecified VENTURA McdonoughP 01/11/2019 F31.9 Bipolar disorder, unspecified Yumiko Calhoun MD 01/11/2019 J45.909 Unspecified asthma, uncomplicated Yumiko Calhoun MD 01/11/2019 Z13.31 Encounter for screening for depression Yumiko Calhoun MD Plan of Treatment 06/18/2019 - Yumiko Calhoun, JESSICA06.0x9D Concussion with loss of consciousness of unspecified duration, subsequent encounterComments:Given patient's progression of symptoms since her in person evaluation at urgent care along with notbeing able to do a physical examination by telemedicine I agree with the urgent care doctors assessment that if she has worsening symptoms she needs to be seen at the emergency department. Discussed going to the ER and patient is agreeable. She states that she does have ability to get transportationto go to the ER to be seen and will do so after this telemetry visit.M54.5 Low back painAllComments:Patient was seen today via Telemedicine visit, after consent was obtained, due to current COVID-19 pandemic. This encounter was reasonable to do via telehealth given the current circumstances. Patient aware of the limitations of a tele visit and consented to proceed with the visit despite these limitations. Start time 1:47Stop time 1:54 Functional Status Description No Information Available Mental Status Description No Information Available Referrals Refer to Reason for Referral Status Appt Date Patient with ongoing left hip pain seen at Urgent Care Sent and ER. MRI pending
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
[2019-06-18] MEDS ORDERED: Ondansetron ODT TAB* 4 MG PO ONE (16:24)
[2019-06-18 16:51] VITALS: BP 122/91
== END 2019-06-18 16:50 | disposition home or self-care (01) ==
LOC: ED 15:06
DX: S09.90XA Unspecified injury of head, initial encounter (principal); Y04.2XXA Assault by strike against or bumped into by another person, initial encounter; Y92.009 Unspecified place in unspecified non-institutional (private) residence as the place of occurrence of the external cause; J45.909 Unspecified asthma, uncomplicated; F41.9 Anxiety disorder, unspecified; F32.9 Major depressive disorder, single episode, unspecified; Z88.5 Allergy status to narcotic agent; Z88.8 Allergy status to other drugs, medicaments and biological substances
CPT/HCPCS: 70450; 99282; A9270-GY

== ENCOUNTER 2019-09-16 06:00 | Observation (INO) ==
[~2019-09-16 06:00] MED LIST: Buffered Lidocaine 1% SYRIN 1 ml INTRADERM ONE; Famotidine IV 10 MG/ML 2 ml VIAL (20 mg) IV ONE; Lactated Ringers 1000 ml BAG 1,000 ML IV SCH
[2019-09-16] MEDS ORDERED: ceFAZolin 2 GM PREMIX in ORs 2 GM/50 ML BAG ONE (06:42)
[2019-09-16] MEDS ORDERED: Famotidine IV 10 MG/ML 2 ml VIAL (20 mg) ONE (06:42)
[2019-09-16] MEDS ORDERED: Buffered Lidocaine 1% SYRIN 1 ml INTRADERM ONE (06:43)
[2019-09-16] MEDS ORDERED: Bacitracin INJECTION 50,000 UNITS ONE (07:09)
[2019-09-16] MEDS ORDERED: Bupivacaine 0.25% SDV 30 ML ONE (07:09)
[2019-09-16] MEDS ORDERED: Propofol 10 MG/ML 20 ML BTL ONE (07:14)
[2019-09-16] MEDS ORDERED: Rocuronium 50 mg VIAL 10 mg/ml 5 ml VIAL (50 mg) ONE (07:14)
[2019-09-16] MEDS ORDERED: Ondansetron 4 mg VIAL 2 MG/ML 2 ml VIAL ONE ×2 (07:14→11:41)
[2019-09-16] MEDS ORDERED: Lidocaine 2% PF 5 ML VIAL ONE (07:14)
[2019-09-16] MEDS ORDERED: Dexamethasone IV 4 MG/ML VIAL 1 ml VIAL ONE ×2 (07:14→08:15)
[2019-09-16] MEDS ORDERED: Acetaminophen IV 1 GM/100ML 100 ML ONE (07:14)
[2019-09-16] MEDS ORDERED: Midazolam 2 mg/2 ml VIAL 1 mg/ml 2 ml VIAL (2 mg) ONE (07:15)
[2019-09-16] MEDS ORDERED: fentaNYL 250 mcg/5 ml 50 MCG/ML 5 ml VIAL (250 MCG) ONE (07:16)
[2019-09-16] MEDS ORDERED: diPHENhydraMINE IV 50 MG/ML 1 ml VIAL (BENADRYL) IV PRN (08:18)
[2019-09-16] MEDS ORDERED: Levalbuterol 0.63MG/3ML NEB UNIT OF USE INH PRN (08:18)
[2019-09-16] MEDS ORDERED: Ondansetron 4 mg VIAL 2 MG/ML 2 ml VIAL IV PRN ×2 (08:18→10:15)
[2019-09-16] MEDS ORDERED: Naloxone 0.4 mg VIAL 0.4 mg/ml 1 ml VIAL IV PRN (08:18)
[2019-09-16] MEDS ORDERED: DiMENhydriNATE IV 50 mg/ml 1 ml VIAL IV PUSH PRN (08:18)
[2019-09-16] MEDS ORDERED: Ketamine HCL 50 mg/ml 10 ml VIAL (500 MG) ONE (08:20)
[2019-09-16] MEDS ORDERED: HYDROcodone/ACETAMIN 5/325 mg TAB PO PRN ×2 (10:15)
[2019-09-16] MEDS ORDERED: Magnesium Hydroxide LIQ 30 ML UDC PO PRN (10:15)
[2019-09-16] MEDS ORDERED: fentaNYL 100 mcg/2 ml 50 MCG/ML VIAL ONE ×2 (10:28→10:45)
[2019-09-16] MEDS: fentaNYL 100 mcg/2 ml 50 MCG/ML VIAL IV PRN ×4 (10:29→11:00)
[2019-09-16 14:07] VITALS: BP 113/68
== END 2019-09-16 15:30 | disposition home or self-care (01) ==
LOC: SSU 06:00 → OR 06:00
PROVIDERS: ADMIT Neurological Surgery; ATTEND Neurological Surgery